=== PATIENT | female | born 1965 | race Caucasian/White ===

== ENCOUNTER 2016-06-18 10:10 | Emergency (ER) | payer MEDICAID ==
[~2016-06-18] VITALS: Ht 149.9 cm; Wt 92.1 kg
[~2016-06-18 10:10] MED LIST: ATENOLOL25 M1; CIPRO500 MG; DIABETA1.25 MG PO; LEVAQUIN500 MG PO; METFORMIN500 MG PO; PHENAZOPYRIDIN100 MG PO; PYRIDIUM100 MG; SOMA350 M1; TENORMIN25 MG PO; TYLENOL ES500 MG PO; VICODIN ES 7501 TA1; WELLBUTRIN XL300 MG
[2016-06-18 10:17] VITALS: BP 126/93
--- NOTE | 2016-06-18 10:37 | NUR ---
PT TO BED 4 AT THIS TIME
--- NOTE | 2016-06-18 10:45 | NUR ---
50/F PRESENT TO ER C/O SORE THROAT x 2 WEEKS; DENIES N/V/D; SKIN IS PINK/WARM/DRY; AAOX4 WITH EVEN AND STEADY GAIT; LUNGS CLEAR BL; HR EVEN AND REGULAR; PT DENIES ANY FEVER, CP OR SOB AT THIS TIME; PATIENT STATES PAIN OF 10/10 AT THIS TIME; VSS; PATIENT POSITIONED FOR COMFORT; HOB ELEVATED; BEDRAILS UP X2; BED DOWN. ER MD MADE AWARE OF PT STATUS.
[2016-06-18] MEDS ORDERED: ALBUTEROL SULFATE/IPRATROPIU 3 ML SOL IH ONE (11:10)
[2016-06-18] MEDS ORDERED: IBUPROFEN 800 MG TAB PO ONE (11:15)
[2016-06-18] MEDS ORDERED: IBUPROFEN 800 MG TAB ONE (11:18)
[2016-06-18 12:59] VITALS: BP 121/71
--- NOTE | 2016-06-18 12:59 | NUR ---
Patient discharged with v/s stable. Written and verbal after care instructions given and explained. Patient alert, oriented and verbalized understanding of instructions. Ambulatory with steady gait. All questions addressed prior to discharge. ID band removed. Patient advised to follow up with PMD. Rx of PULMICORT, AZITHROMYCIN given. Patient educated on indication of medication including possible reaction and side effects. Opportunity to ask questions provided and answered.
== END 2016-06-18 12:59 | disposition home or self-care (01) ==
LOC: MED 10:10
DX: J45.901 Unspecified asthma with (acute) exacerbation (principal); R03.0 Elevated blood-pressure reading, without diagnosis of hypertension; E11.9 Type 2 diabetes mellitus without complications; I10 Essential (primary) hypertension; F15.10 Other stimulant abuse, uncomplicated; F17.210 Nicotine dependence, cigarettes, uncomplicated; Z71.6 Tobacco abuse counseling
CPT/HCPCS: 82948; 99283; J7620

== ENCOUNTER 2016-08-15 12:03 | Emergency (ER) | payer MEDICAID ==
[~2016-08-15] VITALS: Ht 152.4 cm; Wt 99.8 kg
--- NOTE | 2016-08-15 12:03 | NUR ---
Patient was BIBA at this time. Patient ambulated to Triage room from [facility]
[2016-08-15 12:10] VITALS: BP 129/88
--- NOTE | 2016-08-15 14:30 | NUR ---
NO ANSWER OUT IN ER LOBBY
--- NOTE | 2016-08-15 15:25 | NUR ---
PATIENT LEFT WITHOUT BEING SEEN BY DR. GUZMAN. NO FURTHER CARE PROVIDED FOR PATIENT.
== END 2016-08-15 15:25 | disposition left against medical advice (07) ==
LOC: MED 12:03
DX: R10.9 Unspecified abdominal pain (principal); Z53.21 Procedure and treatment not carried out due to patient leaving prior to being seen by health care provider

== ENCOUNTER 2016-10-14 16:53 | Inpatient (IN) | payer MEDICAID ==
[~2016-10-14] VITALS: Ht 152.4 cm; Wt 95.3 kg
[~2016-10-14 16:53] MED LIST changes: +ACET-6134 PO; -ATENOLOL25 M1; -CIPRO500 MG; -DIABETA1.25 MG PO; -LEVAQUIN500 MG PO; +LEVO500T6 PO; -METFORMIN500 MG PO; +PHEN-136 PO; -PHENAZOPYRIDIN100 MG PO; -PYRIDIUM100 MG; -SOMA350 M1; -TENORMIN25 MG PO; -TYLENOL ES500 MG PO; -VICODIN ES 7501 TA1; -WELLBUTRIN XL300 MG
--- NOTE | 2016-10-14 16:53 | NUR ---
Patient was BIBA and taken to bed 03 via gurney per EMS.
[2016-10-14 16:59] VITALS: BP 128/90
--- NOTE | 2016-10-14 17:00 | NUR ---
51F BIBA FOR EVALUATION OF SUICIDAL IDEATION; PT AA&OX4 AT THIS TIME, PERRLA WITH CLEAR SPEECH; PT STATES HAS IDEAS OF SUICIDAL IDEATION, BUT DENIES IDEAS OF HURTING OTHERS AT THIS TIME; PT STATES " IF I HAD A BUNCH OF PILLS, I WOULD TAKE THEM TO KILL MYSELF"; PT STATES " I'VE TRIED TO KILL MYSELF BEFORE WITH PILLS. THEY HAD TO PUMP MY STOMACH"; HX: DM, HTN, STROKE; NO PHYSICAL DEFICITS NOTED FROM STROKE AT THIS TIME; PT STATES " THE STROKE JUST MADE ME KIND OF STUPID"; PT C/O PRESSURE TO LEFT GROIN AREA, NON-RADIATING, 9/10 X YESTERDAY; PT STATES " IT'S BECAUSE I HAVE OVARIAN CANCER"; PT C/O NAUSEA, WITH 2 EPISODES OF DIARRHEA TODAY; ABDOMEN SOFT, NON-TENDER, ACTIVE BOWEL SOUNDS X 4 QUADRANTS; BL LUNG SOUNDS CLEAR, RR EVEN/UNLABORED, EQUAL RISE/FALL OF CHEST NOTED AT THIS TIME; SKIN IS WARM/DRY/INTACT AT THIS TIME; STEADY GAIT; PT PLACED ON MONITOR, RESTING IN BED WITH HOB ELEVATED AND IN LOWEST POSITION; POSITIONED FOR COMFORT; ER MD MADE AWARE OF STATUS. WILL CONTINUE TO MONITOR.
--- NOTE | 2016-10-14 17:11 | NUR ---
ER MD DR. TIERNEY EVALUATING PT AT BEDSIDE.
--- NOTE | 2016-10-14 17:51 | NUR ---
[place] [employer] AT BEDSIDE EVALUATING PT FOR POSSIBLE 5150 HOLD.
--- NOTE | 2016-10-14 17:55 | NUR ---
PT PLACED ON 5150 HOLD MY [employer] [employer] FOR SUICIDAL IDEATION AT THIS TIME.
[2016-10-14 18:00] LABS: BASOPHILS # (AUTO) 0.3 K/uL (0.00-0.22); EOSINOPHILS # (AUTO) 0.2 K/uL (0-0.4); EOSINOPHILS % (AUTO) 1.3 % (0.0-4.0); LYMPHOCYTES # (AUTO) 3.5 K/uL (2.5-16.5); LYMPHOCYTES % (AUTO) 26.2 % (20.5-51.1); MEAN CORPUSCULAR HEMOGLOBIN 24 pg (27-31); MEAN CORPUSCULAR HGB CONC 32 g/dL (33-37); MEAN CORPUSCULAR VOLUME 75 fL (80-94); MONOCYTES # (AUTO) 0.6 K/uL (0.8-1.0); MONOCYTES % (AUTO) 4.6 % (1.7-9.3); NEUTROPHILS # (AUTO) 8.6 K/uL (1.8-7.7); NEUTROPHILS % (AUTO) 65.9 % (42.2-75.2); PLATELET COUNT (AUTO) 337 K/uL (140-450); RED BLOOD CELL COUNT(AUTO) 5.88 MIL/uL (4.20-5.40); RED CELL DISTRIBUTION WIDTH 16.7 % (11.6-13.7); WHITE BLOOD COUNT (AUTO) 13.2 K/uL (4.8-10.8)
[2016-10-14 18:03] LABS: APPEARANCE,URINE CLEAR (CLEAR); BILIRUBIN,URINE NEGATIVE (NEGATIVE); BLOOD, URINE NEGATIVE (NEGATIVE); COLOR,URINE YELLOW (YELLOW); LEUKOCYTE ESTERASE ,URINE NEGATIVE (NEGATIVE); NITRITE, URINE NEGATIVE (NEGATIVE); PH,URINE 5.5 (5.0-9.0); PROTEIN,URINE TRACE (NEGATIVE); UGLUCOSE 3+ (NEGATIVE); UROBILINOGEN,URINE 0.2 EU/dL (0.2 - 1)
[2016-10-14 18:06] LABS: BACTERIA,URINE 1+ /HPF (None Seen); MUCUS,URINE 1+ /LPF (None Seen); RBC,URINE 0-5 /HPF (0-5); SQUAMOUS EPITHELIAL CELL,UR 20-40 /LPF (0-3 (FEW)); WBC,URINE 0-5 /HPF (0-5)
[2016-10-14 18:09] LABS: ANION GAP 11.9 (8-16); CALCIUM 9.2 mg/dL (8.5-10.1); CARBON DIOXIDE 28.4 mmol/L (21-32); CHLORIDE 98 mmol/L (98-107); CREATININE 0.7 mg/dL (0.6-1.3); GFR ARICAN-AMERICAN 114 mL/min (>90); GFR NON ARICAN-AMERICAN 95 mL/min (>90); GLUCOSE 262 mg/dL (74-106); POTASSIUM 4.3 mmol/L (3.5-5.1); SODIUM SERUM 134 mmol/L (136-145); UREA NITROGEN, BLOOD 15 mg/dL (7-18)
[2016-10-14 18:09] LABS: AMPHETAMINE, URINE POS. ng/ml (NEG <=1000); BARBITURATE, URINE NEG. ng/ml (NEG <=200); BENZODIAZEPINE, URINE NEG. ng/mL (NEG <=200); CANNABINOID, URINE NEG. ng/mL (NEG <=50); COCAINE, URINE NEG. ng/mL (NEG <=300); OPIATE, URINE NEG. ng/mL (NEG <=2000); PHENCYCLIDINE SCREEN,URINE NEG. ng/mL (NEG <=25)
[2016-10-14] MEDS ORDERED: NACL 0.9% 1,000 ML IV ONE (18:10)
[2016-10-14] MEDS ORDERED: KETOROLAC 30 MG/ML VIAL IVP ONE (18:10)
[2016-10-14] MEDS ORDERED: INSULIN HUMAN REGULAR 100 UNITS/ML 10 ML VIAL IVP ONE (18:10)
[2016-10-14 18:15] LABS: ACETAMINOPHEN < 0.5 ug/ml (10-30); ALANINE AMINOTRANSFERASE 17 U/L (14-59); ALBUMIN 3.1 g/dL (3.4-5.0); ALCOHOL, BLOOD < 3 mg/dL (<3); ALKALINE PHOSPHATASE 129 U/L (46-116); ASPARTATE AMINOTRANSFERASE 10 U/L (15-37); SALICYLATE < 2.8 mg/dL (2.8-20.0); TOTAL BILIRUBIN 0.3 mg/dL (0.0-1.0); TOTAL PROTEIN, SERUM 7.3 g/dL (6.4-8.2)
--- NOTE | 2016-10-14 18:47 | NUR ---
PT APPEARS TO BE RESTING COMFORTABLY IN BED; VSS; RR EVEN/UNLABORED; POSITIONED FOR COMFORT; SUICIDAL IDEATION PRECAUTIONS IN PLACE; WILL CONTINUE TO MONITOR.
--- NOTE | 2016-10-14 19:13 | NUR ---
RECEIVED REPORT FROM AM NURSE, PT IS ASLEEP IN BED, NO S/S OF DISTRESS, WILL CONTINUE TO MONITOR.
--- NOTE | 2016-10-14 19:13 | NUR ---
Pt report given to PRATIBHA BAILEY. Transfer of care at this time. PT APPEARS TO BE SLEEPING COMFORTABLY IN BED; VSS; RR EVEN/UNLABORED AT THIS TIME; POSITIONED FOR COMFORT.
--- NOTE | 2016-10-14 22:07 | NUR ---
REPORT GIVEN TO PRATIBHA AMIN, PATIENT WILL TRANSFER TO ROOM 110B.
[2016-10-14] MEDS ORDERED: ACETAMINOPHEN 325 MG TAB PO PRN (22:25)
[2016-10-14] MEDS ORDERED: ACETAMINOPHEN EXTRA STRENGTH 500 MG TAB PO SCH (22:25)
[2016-10-14] MEDS ORDERED: ONDANSETRON 4 MG/2 ML VIAL IVP PRN (22:25)
--- NOTE | 2016-10-14 22:25 | NUR ---
Patient will be admitted to care of DR PACHECO. Admited to TELEMETRY. Will go to room 110 B. Belongings list completed. Report to RHINA MCKINNON.
--- NOTE | 2016-10-14 22:30 | NUR ---
PATIENT ADMITTED TO THE UNIT FROM ED VIA GURNEY, PATIENT ABLE TO AMBULATE FROM [place] TO BED, STEADY GAIT, PATIENT IS AAOX4 ON ROOM AIR NO SOB OR SIGN OF DISTRESS AT THIS TIME, IV TO RIGHT HAND PATENT AND INTACT, PATIENT DENIES PAIN AT THIS TIME, SKIN INTACT, ATTEMPTED TO DO ADMISSION ASSESSMENT, PT ASKED WHY SHE WAS HERE EXPLAINED TO PATIENT SHE WAS HERE FOR MONITORING AND PROCEEDED TO ASK IF SHE WANTED TO HURT HERSELF, PT SAID "YEAH I WANT TO KILL MYSELF AND ," ASKED PATIENT WHY AND PT STATED, "BECAUSE I AM NOT HAPPY WITH MY LIFE AND THE WAY IT IS." PT STATED SHE HAS IN THE PAST TRIED TO KILL HERSELF BY TAKING PILLS, TYLENOL. TRIED TO FURTHER ASSESS OTHER HISTORY AND PATIENT GOT AGITATED AND STATED, "I DONT WANT TO TALK ANYMORE, ITS ALL IN MY CHART." PATIENT 1:1 SITTER, PT NOW SLEEPING, WILL CONTINUE TO MONITOR, VITAL SIGNS STABLE.
[2016-10-14 23:09] VITALS: BP 120/75
--- NOTE | 2016-10-15 01:07 | NUR ---
PT SLEEPING NO SIGN OF DISTRESS, 1:1 SITTER, CALL LIGHT WITHIN REACH, WILL CONTINUE TO MONITOR
--- NOTE | 2016-10-15 03:20 | NUR ---
PT SLEEPING NO SIGN OF DISTRESS, 1:1 SITTER, WILL CONTINUE TO MONITOR.
[2016-10-15] MEDS: LORazepam 2 MG/ML VIAL IVP PRN ×3 (05:20→17:49)
--- NOTE | 2016-10-15 05:27 | NUR ---
[employer] [employer] [place] BOATMAN CALLED SAYING PT WAS AGITATED, ASKED PT WHY SHE WAS UPSET, PT STATED "BECAUSE OF EVERYTHING AND EVERYONE IM JUST IRRITATED!" PT ALSO STATED SHE WAS FEELING ANXIOUS, ADMINISTERED ATIVAN PER MD ORDER. PT RESTING IN BED, WILL CONTINUE TO MONITOR. 1:1 SITTER
--- NOTE | 2016-10-15 07:39 | NUR ---
ENDORSED PATIENT TO DAY RN AT BEDSIDE, PATIENT IN STABLE CONDITION, 1:1 SITTER
--- NOTE | 2016-10-15 07:40 | NUR ---
RECEIVED PT FROM THE FOUR H CLUB AGENT NURSE AT BEDSIDE FOR CONTINUITY OF CARE. PT IS AWAKE AND ORIENTED. INTRODUCED MYSELF AND UPDATED THE BOARD. PT IS NON-COMPLIANT. REFUSED V/S THIS MORNING. SHE ATE HER BREAKFAST AND WENT TO BED. SHE STATES, SHE'S BEEN BOTHERED ALL MORNING. JUST WANT TO BE LEFT ALONE. SITTER IN THE ROOM. NOTED IV ON R HAND 22G SL.
--- NOTE | 2016-10-15 08:49 | NUR ---
PT REFUSED MORNING MEDS. WANTS TO BE LEFT ALONE AND JUST SLEEP.
--- NOTE | 2016-10-15 08:58 | NUR ---
PATIENT HAS BEEN SCREENED AND CATEGORIZED HIGH NUTRITION RISK. PATIENT WILL BE SEEN WITHIN 1-2 DAYS OF ADMISSION. 10/15/16-10/16/[address]
[2016-10-15] MEDS: LEVOFLOXACIN 500 MG TAB PO SCH (09:16)
[2016-10-15] MEDS: PHENAZOPYRIDINE 100 MG TAB PO SCH ×2 (09:17→21:50)
--- NOTE | 2016-10-15 09:20 | NUR ---
PT AWAKE. ASKED TO DO V/S AND TAKE MORNING MEDS. PT SAID YES. V/S WITHIN NORMAL LIMITS AND PT TOLERATED MEDS WELL. SITTER IN ROOM. WILL CONTINUE TO MONITOR PT.
[2016-10-15 09:30] VITALS: BP 123/76
--- NOTE | 2016-10-15 10:00 | NUR ---
PT FEELING ANXIOUS. WANTED ATIVAN. ADMINISTERED MED. PT TOLERATED WELL. UPSET ABOUT GOWN,FEELING RESTRICTED. TOOK IT OFF AND WENT TO THE BATHROOM.
--- NOTE | 2016-10-15 11:30 | NUR ---
PT SLEEPING. NO SIGNS OF DISTRESS. SITTER IN ROOM. WILL CONTINUE TO MONITOR PT.
--- NOTE | 2016-10-15 12:13 | NUR ---
SS NOTE: I ATTEMPTED TO SPEAK WITH PT BEDSIDE TO PROVIDE HER WITH HOMELESS RESOURCES, SUBSTANCE ABUSE RESOURCES AND MENTAL HEALTH RESOURCES BUT PT WAS SLEEPING AND SNORING.
--- NOTE | 2016-10-15 12:34 | NUR ---
PT SLEEPING. NO SIGNS OF DISTRESS. SITTER IN THE ROOM. WILL CONTINUE TO MONITOR PT.
--- NOTE | 2016-10-15 13:02 | NUR ---
SS NOTE: I ATTEMPTED TO SPEAK WITH PT AGAIN BEDSIDE BUT PT WAS SLEEPING AND SNORING.
--- NOTE | 2016-10-15 13:56 | NUR ---
10/15/16 RD INITIAL ASSESSMENT COMPLETED PLEASE REFER TO NUTRITION ASSESSMENT UNDER CARE ACTIVITY FOR ESTIMATED NUTRITIONAL NEEDS. 1. CONTINUE REGULAR DIET, IF PT AGREEABLE SWITCH TO 60GM CONSISTENT CARBOHYDRATE DIET JAIDA GRANGER RD
--- NOTE | 2016-10-15 15:21 | NUR ---
PT SLEEPING. NO SIGNS OF DISTRESS. WILL CONTINUE TO MONITOR PT.
[2016-10-15 16:00] VITALS: BP 150/101
--- NOTE | 2016-10-15 16:30 | NUR ---
PT HUNGRY. PT REQUESTED SANDWICH AND SODA. REQUESTED TO FNS.
--- NOTE | 2016-10-15 17:30 | NUR ---
DR. RICHEY, PSCHIATRIST CAME AND EVALUATED PT.
--- NOTE | 2016-10-15 18:00 | NUR ---
PT RESTING COMFORTABLY AFTER GETTING HER ATIVAN. NO SIGNS OF DISTRESS. SITTER IN THE ROOM. WILL CONTINUE TO MONITOR PT.
--- NOTE | 2016-10-15 19:30 | NUR ---
ENDORSED PT TO THE MATTE CUTTER NURSE AT BEDSIDE FOR CONTINUITY OF CARE. PT IS SLEEPING SOUNDLY. NO SIGNS OF DISTRESS. SITTER IN ROOM. PT IS STABLE.
--- NOTE | 2016-10-15 19:31 | NUR ---
RECEIVED REPORT,ASSUMED CARE. PT AOX4. DENIES PAIN, NO S/S OF RESPIRATORY DISTRESS AT THIS TIME. CONTINUE TO MONITOR FOR SI, DENIES AT THIS TIME. MOOD AND AFFECT REMAINS DEPRESSED. LIMITED INTERACTION AND RESPONSE TO QUESTIONS. CONTINUE ON 1:1 MONITORING FOR SAFETY. SL TO RIGHT HAND GAUGE 22, INTACT AND PATENT. NO S/S OF INFILTRATION NOTED AT THIS TIME. DISCUSSED PLAN OF CARE. PT VERBALIZED UNDERSTANDING BUT REQUIRES REINFORCEMENT. PT DISPLAYS LOW ENERGY WITH NO MOTIVATION FOR SELF CARE. ALL NEEDS ANTICIPATED. CALL LIGHT WITHIN EASY REACH
[2016-10-15] MEDS ORDERED: DEXTROSE 50% 50 ML SYR IVP PRN (19:40)
[2016-10-15] MEDS: INSULIN LISPRO SLIDING SCALE 100 UNITS/ML VIAL SUBQ PRN (21:50)
[2016-10-15] MEDS: BLOOD GLUCOSE MONITORING 1 DEV DEV FS SCH (21:57)
--- NOTE | 2016-10-15 21:57 | NUR ---
PT'S BS 379MG/DL, ADMINISTERED 10 UNITS OF HUMALOG PER SLIDING SCALE. PYRIDIUM GIVEN ORDERED. NO ADVERSE REACTION. WILL CONTINUE TO MONITOR.
--- NOTE | 2016-10-16 00:12 | NUR ---
PT SLEEPING, EASY TO AROUSE. EXPLAINED TO PT PRIOR PERFORMING THE TASK. PT SUDDENLY TOOK THE BP CUFF OFF HER ARM AND THREW IT AT STAFF. " IT HURTS! IT HURTS! I DON'T WANT THAT!" EXPLAINED RISKS/BENEFITS. PT GOT UPSET AND RAISING HER VOICE AT STAFF. WILL CONTINUE TO MONITOR.
--- NOTE | 2016-10-16 02:15 | NUR ---
ROUTINE ROUNDS, PT SOUND ASLEEP. SITTER AT BEDSIDE FOR CLOSE MONITORING AND SAFETY. NO EVIDENCE OF SELF HARM AT THIS TIME. WILL CONTINUE TO MONITOR.
--- NOTE | 2016-10-16 04:16 | NUR ---
PT SLEEPING AT THIS TIME. NO S/S OF RESPIRATORY DISTRESS. NO FACIAL GRIMACING OR MOANING INDICATING PAIN AT THIS TIME. 1:1 MONITORING FOR SAFETY. WILL CONTINUE TO MONITOR
--- NOTE | 2016-10-16 05:40 | NUR ---
PT REFUSED BLOOD DRAW DESPITE EXPLANATIONS OF RISKS/BENEFITS. PT STARTED YELLING AND SCREAMING AT STAFF. UNCOOPERATIVE AND NON RECEPTIVE WITH EDUCATION.
[2016-10-16] MEDS: INSULIN LISPRO SLIDING SCALE 100 UNITS/ML VIAL SUBQ PRN ×3 (06:41→17:27)
[2016-10-16] MEDS: BLOOD GLUCOSE MONITORING 1 DEV DEV FS SCH ×4 (06:43→21:00)
--- NOTE | 2016-10-16 07:28 | NUR ---
PT AAOX4, VERBALLY RESPONSIVE. DENIES PAIN. NO S/S OF RESPIRATORY DISTRESS AT THIS TIME. PT IN STABLE CONDITION. NO REPORTS OF SI/HI/VH/AH. ENDORSED TO NEXT SHIFT FOR CONTINUITY OF CARE.
--- NOTE | 2016-10-16 07:29 | NUR ---
PT SLEEPING. NO SIGNS OF DISTRESS. NOTED R HAND 22G SL. NO FLUIDS AT THIS TIME. SITTER IN THE ROOM. PT SKIN IS INTACT. WILL LET HER SLEEP. WILL CHECK ON HER LATER.
--- NOTE | 2016-10-16 07:50 | NUR ---
PT V/S WITHIN NORMAL. PT IS AWAKE. BREAKFAST IS HERE. UPDATED HER BOARD. NOTIFIED HER THAT I WILL BE BRING HER MORNING MEDS.
[2016-10-16 08:00] VITALS: BP 104/77
[2016-10-16] MEDS: PHENAZOPYRIDINE 100 MG TAB PO SCH ×2 (08:40→21:00)
[2016-10-16] MEDS: LEVOFLOXACIN 500 MG TAB PO SCH (08:40)
[2016-10-16] MEDS: LORazepam 2 MG/ML VIAL IVP PRN ×3 (08:41→20:42)
--- NOTE | 2016-10-16 08:50 | NUR ---
VAULT MANAGER AND INSTRUCTOR ADMINISTERED MORNING MEDS. PT TOLERATED WELL.
--- NOTE | 2016-10-16 11:06 | NUR ---
DR. VARGAS, ID IS HERE TO F/U WITH PT. PT IS AWAKE. FOLLOWING SIMPLE COMMANDS AND ANSWERING QUESTIONS. DR REQUESTED URINE SAMPLE FOR CULTURE AND SENSITIVITY. WILL TRY AND GET A SAMPLE.
--- NOTE | 2016-10-16 13:00 | NUR ---
PT SLEEPING. NO SIGNS OF DISTRESS. SITTER IN THE ROOM. WILL CONTINUE TO MONITOR PT.
--- NOTE | 2016-10-16 15:30 | NUR ---
MOVED PT FROM 110B TO 109B. GATHERED ALL PERSONAL BELONGINGS AND PT AMBULATED TO NEXT DOOR. SITTER IN THE ROOM. PT RESTING COMFORTABLY. NO SIGNS OF DISTRESS. WILL CONTINUE TO MONITOR PT.
[2016-10-16 15:54] VITALS: BP 126/82
--- NOTE | 2016-10-16 17:34 | NUR ---
PT SLEEPING SOUNDLY. NO SIGNS OF DISTRESS. SITTER IN THE ROOM. WILL CONTINUE TO MONITOR PT.
--- NOTE | 2016-10-16 18:57 | NUR ---
PT ATE DINNER. SLEEPING AGAIN. NO COMPLAINTS. SITTER IN ROOM. WILL CONTINUE TO MONITOR PT.
--- NOTE | 2016-10-16 19:15 | NUR ---
ENDORSED PT TO THE TRADER FIXED INCOME NURSE AT BEDSIDE FOR CONTINUITY OF CARE. PT IS SLEEPING. NO SIGNS OF DISTRESS. WILL CONTINUE TO MONITOR PT.
--- NOTE | 2016-10-16 19:17 | NUR ---
PATIENT IS CURRENTLY RESTING IN BED AWAKE ALERT ORIENTED WITH SITTER 1:1 JOSE RAMON AT BEDSIDE PATIENT.PATIENT IS CURRENTLY CALM AND COOPERATIVE.
--- NOTE | 2016-10-16 20:42 | NUR ---
PATIENT RECEIVED ATIVAN SHOWING AGGRESSIVE BEHAVIOUR ,SCREAMING AND HOLLERING PATIENT IS NOT COMPLETELY ORIENTED IS CONFUSED AND SEEMS DISORIENTED DOESN'T KNOW IF SHE IS INSIDE OR OUTSIDE.PATIENT IS ACCUSING THE STAFF OFF TAKING HER PERSONAL THINGS.SECURITY ATTEMPTED TO CALM HER AND KEEP HER IN HER ROOM BUT SHE HAS NO RESPECT FOR AUTHORITY AND VOCATIONAL EVALUATOR JEANINE ALSO ATTEMPTED TO DE ESCALATE THE SITUATION BUT PATIENT IS NON COMPLIANT AND WON'T FOLLOW DIRECTIONS. THEN PATIENT FINALLY SAT DOWN AND ASKED IF SHE COULD GET HER MEDICATION FOR ANXIETY AND RN ESTAPON ADMINISTERED.WHILE TRYING TO ADMINISTER PATIENT ATTEMPTED TO BITE HIM. PATIENT WILL CONTINUE TO BE MONITORED WILL REASSESS HER AFTER ATIVAN.
--- NOTE | 2016-10-16 21:30 | NUR ---
Patient's Plan of Care was discussed and reviewed with GLUE MIXER: RUSSELL HERRMANN
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
--- NOTE | 2016-10-16 22:30 | NUR ---
POLICE CAME AND SAW THE PATIENT WOODWORK SALVAGE INSPECTOR AND MYSELF EXPLAINED THAT PATIENT IS VERY AGGRESSIVE,THREATENING, AND IS THROWING THINGS TO THE STAFF AND ATTEMPTED TO BITE RN ESTAPON WHEN GIVING THE MEDICATION.POLICE ASKED TO SPEAK TO MCKENNA CHARGE NURSE AND SHE ALSO GAVE THEM INFORMATION AND PD WAS INFORMED THAT PATIENT IS 5150 AND THEN SAID THEY REALLY CAN'T DO ANYTHING BUT SAID TO CALL AGAIN IF PATIENT STARTS GETTING AGGRESSIVE AND LEFT. PATIENT CURRENTLY IN THE ROOM Raymond MARTINEZ HAS BEEN CALLED AND INFORMED OF CURRENT SITUATION WITH THE PATIENT AND GAVE ORDERS FOR HALDOL 10 IM EVERY SIX HOURS PRN WILL CARRY OUT ORDERS.
[2016-10-16] MEDS ORDERED: HALOPERIDOL IM 5 MG/ML VIAL ONE (22:41)
--- NOTE | 2016-10-17 00:10 | NUR ---
PATIENT SLEEPING IN BED DOESN'T WANT TO BE BORED PATIENT REFUSED VITAL SIGNS TONIGHT COVERED HER HEAD WITH A BLANKET.
--- NOTE | 2016-10-17 02:24 | NUR ---
PATIENT SLEEPING GOT UP THE BATHROOM AND WENT BACK TO BED,PATIENT IS CALM AT THIS TIME CONTINUES TO BE MONITORED.CALL LIGHT WITHIN REACH WILL CONTINUE TO MONITOR.
--- NOTE | 2016-10-17 04:19 | NUR ---
PATIENT IS CURRENTLY RESTING IN BED IN NO DISTRESS WILL CONTINUE TO MONITOR. SITTER 1:1 BRIANNA AT BEDSIDE WILL CONTINUE TO MONITOR.
[2016-10-17 06:25] LABS: ANION GAP 12.7 (8-16); CALCIUM 8.6 mg/dL (8.5-10.1); CARBON DIOXIDE 26.7 mmol/L (21-32); CREATININE 0.8 mg/dL (0.6-1.3); POTASSIUM 4.4 mmol/L (3.5-5.1)
[2016-10-17 06:28] LABS: BASOPHILS # (AUTO) 0.2 K/uL (0.00-0.22); BASOPHILS % (AUTO) 1.8 % (0.0-2.0); EOSINOPHILS # (AUTO) 0.2 K/uL (0-0.4); EOSINOPHILS % (AUTO) 1.7 % (0.0-4.0); HEMATOCRIT 42.3 % (36-48); HEMOGLOBIN 13.5 g/dL (12.0-16.0); LYMPHOCYTES # (AUTO) 3.4 K/uL (2.5-16.5); LYMPHOCYTES % (AUTO) 28.7 % (20.5-51.1); MEAN CORPUSCULAR HEMOGLOBIN 24 pg (27-31); MEAN CORPUSCULAR HGB CONC 32 g/dL (33-37); MEAN CORPUSCULAR VOLUME 76 fL (80-94); MONOCYTES # (AUTO) 0.6 K/uL (0.8-1.0); MONOCYTES % (AUTO) 4.9 % (1.7-9.3); NEUTROPHILS # (AUTO) 7.5 K/uL (1.8-7.7); NEUTROPHILS % (AUTO) 62.9 % (42.2-75.2); PLATELET COUNT (AUTO) 261 K/uL (140-450); RED BLOOD CELL COUNT(AUTO) 5.58 MIL/uL (4.20-5.40); RED CELL DISTRIBUTION WIDTH 16.7 % (11.6-13.7)
--- NOTE | 2016-10-17 06:32 | NUR ---
PATIENT REFUSED TO INSULIN COVERAGE I EXPLAINED TO THE PATIENT THE IMPORTANCE TO MAINTAIN HER BLOOD SUGAR LEVELS UNDER CONTROL PATIENT UNABLE TO UNDERSTANDING PATIENT STATES,"I DON'T CARE." AND REFUSED.WILL ENDORSE AND WILL LET PATIENT REST.
[2016-10-17] MEDS: BLOOD GLUCOSE MONITORING 1 DEV DEV FS SCH ×4 (06:34→21:14)
[2016-10-17 07:07] LABS: WHITE BLOOD COUNT (AUTO) 11.9 K/uL (4.8-10.8)
--- NOTE | 2016-10-17 07:11 | NUR ---
PATIENT STABLE REPORT ENDORSED TO MADISON CORONADO
--- NOTE | 2016-10-17 07:14 | NUR ---
ASSUMED CONTINUITY OF CARE. NO SIGNS AND SYMPTOMS OF ACUTE DISTRESS NOTED. INITIAL ASSESSMENT DONE. NON-COMPLIANT. KEEP COMFORTABLE ON BED. CLOSELY WATCHED BY A 1:1 SITTER REVA DE LEÓN. CALL LIGHT WITHIN REACH.
--- NOTE | 2016-10-17 07:18 | NUR ---
Patient's Plan of Care was discussed and reviewed with BEAM SAW OPERATOR: MELLISSA CORONADO
--- NOTE | 2016-10-17 08:35 | NUR ---
DARIA HOFFMANN CAME, INFORMED THAT PT. REFUSED INSULIN COVERAGE EARLIER FROM RETORT FURNACE OPERATOR NURSE.
[2016-10-17 09:00] VITALS: BP 133/94
[2016-10-17] MEDS: PHENAZOPYRIDINE 100 MG TAB PO SCH ×2 (09:28→21:00)
[2016-10-17] MEDS: LEVOFLOXACIN 500 MG TAB PO SCH (09:29)
--- NOTE | 2016-10-17 10:45 | NUR ---
PT. RESTING ON BED COMFORTABLY. NO DISCOMFORT NOTED. CONTINUE TO WATCH BY A SITTER 1:1.
[2016-10-17] MEDS: INSULIN LISPRO SLIDING SCALE 100 UNITS/ML VIAL SUBQ PRN (12:10)
--- NOTE | 2016-10-17 14:00 | NUR ---
IV ON RIGHT HAND INFILTRATED. INSERTED NEW IV ON LEFT FOREARM WITH GAUGE #24. TOLERATED WELL.
[2016-10-17] MEDS: LORazepam 2 MG/ML VIAL IVP PRN ×2 (14:36→20:22)
--- NOTE | 2016-10-17 17:06 | NUR ---
CALM AND QUIET AT THIS TIME. NO AGGRESSIVE BEHAVIOR OBSERVED. KEEP FREE FROM INJURY.
--- NOTE | 2016-10-17 19:15 | NUR ---
BEDSIDE REPORT GIVEN TO RUSSELL LI. IN STABLE CONDITION.
--- NOTE | 2016-10-17 19:20 | NUR ---
PATIENT IS CURRENTLY RESTING IN BED SLEEPING. SITMONTANA AT BEDSIDE WITH THE PATIENT. PATIENT NEEDS MET WILL CONTINUE TO MONITOR.
--- NOTE | 2016-10-17 21:15 | NUR ---
PATIENT REFUSED HER PYRIDIUM PILL.EDUCATION GIVEN ON THE IMPORTANCE OF TAKING IT PATIENT REFUSED.
--- NOTE | 2016-10-17 22:00 | NUR ---
Patient's Plan of Care was discussed and reviewed with CONSULTING SERVICES MANAGER: RUSSELL HERRMANN
--- NOTE | 2016-10-18 00:26 | NUR ---
PATIENT IS SLEEPING AT THIS TIME WILL CONTINUE TO MONITOR.CALL LIGHT WITHIN REACH.
--- NOTE | 2016-10-18 03:20 | NUR ---
PATIENT IS CURRENTLY SLEEPING IN BED GETS UP TO THE BATHROOM AND GOES BACK TO BED NO AGRESSIVE BEHAVIOR NO ATTEMPTS TO HARM SELF OR OTHERS WILL CONTINUE TO MONITOR.SITTER 1:1 AT BEDSIDE AT ALL TIMES.
--- NOTE | 2016-10-18 05:11 | NUR ---
PATIENT IS CURRENTLY SLEEPING IN BED NO DISTRESS NO HARM TO SELF OR OTHER UP UNTIL NOW SHE HAS BEEN COOPERATIVE AND CALM.WILL CONTINUE TO MONITOR.
--- NOTE | 2016-10-18 06:36 | NUR ---
PATIENT RESTING IN BED REMAINS NON COMPLIANT REFUSES ACCUCHECK WANTS TO SLEEP.PATIENT CONTINUES TO BE MONITORED.
--- NOTE | 2016-10-18 07:31 | NUR ---
PATIENT IS CURRENTLY SLEEPING ENDORSED TO PRATIBHA MACKEY THAT PATIENT WAS CALM BUT COMPLETELY NON COOPERATIVE AND NON COMPLIANT WITH HER TREATMENT SHE REFUSED VITAL SIGNS AND ACCUCHECKS ON MY SHIFT BUT PATIENT CONTINUES TO BE MONITORED BY 1l:1 SITTER AND NO HARM DONE TO NURSE OF STAFF ON MY SHIFT.PRATIBHA MACKEY WILL RESUME CARE OF THE PATIENT.
[2016-10-18] MEDS: LEVOFLOXACIN 500 MG TAB PO SCH (09:51)
--- NOTE | 2016-10-18 09:56 | NUR ---
DUE MEDS GIVEN FADIA WELL, PT ON THE PHONE WITH DAUGHTER JANN, UPSET ON THE PHONE, STATING "I'M HERE BECAUSE I FU WANNA KILL MYSELF", PT STATES IT'S OK TO TELL DAUGHTER JANN ABOUT HER CARE AND CONDITION OF JANN CALLS AGAIN, PT WENT BACK SLEEP.
--- NOTE | 2016-10-18 10:37 | NUR ---
SS NOTE: PSYCH PLACEMENT INQUIRIES SENT TO: - [facility]
[2016-10-18] MEDS: BLOOD GLUCOSE MONITORING 1 DEV DEV FS SCH ×4 (11:30→22:00)
--- NOTE | 2016-10-18 12:04 | NUR ---
SS NOTE: I SPOKE WITH PT BEDSIDE. PT STATED THAT SHE HAS BEEN HOMELESS FOR TOO LONG AND WOULD NOT PROVIDE ADDITIONAL INFORMATION. I PROVIDED PT WITH HOMELESS RESOURCES, MENTAL HEALTH RESOURCES AND SUBSTANCE ABUSE RESOURCES.
[2016-10-18] MEDS: INSULIN LISPRO SLIDING SCALE 100 UNITS/ML VIAL SUBQ PRN ×3 (12:20→22:11)
[2016-10-18] MEDS: LORazepam 2 MG/ML VIAL IVP PRN ×2 (13:29→19:32)
--- NOTE | 2016-10-18 13:33 | NUR ---
PT UPSET BECAUSE HER PURSE AND CELL PHONE MISSING, PER XM1 TANK DRIVER AT BEDSIDE PT WAS GETTING AGGRESSIVE, GETTING OUT OF BED, WANTING TO GO OUT TO SMOKE, ANABEL CHAVEZ CALLED WHEN PT WAS TRYING TO RUN OUT OF ROOM DOWN THE HALLWAY. PT REASSURED THAT WE ARE SEARCHING FOR HER BELONGINGS, PT REQUESTS "ANXIETY MED" ATIVAN GIVEN PER PRN ORDER, WILL CONTINUE TO MONITOR.
--- NOTE | 2016-10-18 14:18 | NUR ---
10/18/16 RD FOLLOW-UP ASSESSMENT COMPLETED PLEASE REFER TO NUTRITION ASSESSMENT UNDER CARE ACTIVITY FOR ESTIMATED NUTRITIONAL NEEDS. 1. CONTINUE 60 G CONSISTENT CARBOHYDRATE DIET 2. RD TO FOLLOW-UP MODERATE RISK, 3-[address]
--- NOTE | 2016-10-18 14:32 | NUR ---
SS NOTE: PER FREDDIE FROM [facility], PT'S INFORMATION IS PENDING REVIEW PER HECTOR FROM [facility], NO FEMALE BEDS AVAILABLE PER COLBY FROM [facility], NO FEMALE BEDS AVAILABLE PER LEO FROM [facility], NO FEMALE BEDS AVAILABLE PER RUSSELL FROM [facility], NO FEMALE BEDS AVAILABLE
[2016-10-18 16:20] VITALS: BP 106/53
--- NOTE | 2016-10-18 17:36 | NUR ---
6U INSULIN GIVEN PER SLIDING SCALE, PT FADIA WELL, PT CALM AND COOPERATIVE AT THIS TIME, REMAINS ON 1:1 WATCH, PLAN OF CARE REVIEWED, PENDING INPT PSYCH PLACEMENT, BED LOCKED IN LOW POSITION, CALL STEWART WITHIN REACH, WILL CONTINUE TO MONITOR.
--- NOTE | 2016-10-18 19:25 | NUR ---
SLEEPING COMFORTABLY IN BED. SITTER MONITORING PATIENT.
--- NOTE | 2016-10-18 19:34 | NUR ---
PT REPROT FEELING ANXIOUS, ATIVAN GIVEN PER PRN ORDER, REPORT GIVEN TO ENRIQUE SHOT HOLE SHOOTER, CARE ENDORSED AT THIS TIME.
--- NOTE | 2016-10-18 19:35 | NUR ---
RECD. RESTING IN BED, AWAKE, A/OX4. RESPIRATION EVEN AND UNLABORED. IV SALINE LOCK AT THE LEFT FOREARM G 24. 1:1 SITTER AT THE BEDSIDE MONITORING PATIENT. WILL CONTINUE TO MONITOR BEHAVIOR AND ENSURE SAFETY THROUGHOUT THE SHIFT. DENIES PAIN 0/10.
--- NOTE | 2016-10-18 19:48 | NUR ---
Patient's Plan of Care was discussed and reviewed with PROCESS CONTROL BOARD OPERATOR: ENRIQUE Strong
[2016-10-19] VITALS: BP 119/66
--- NOTE | 2016-10-19 | NUR ---
SLEEPING COMFORTABLY IN BED. COOPERATIVE, ALLOWS VS TO BE TAKEN.
[2016-10-19] MEDS: LORazepam 2 MG/ML VIAL IVP PRN ×3 (04:45→21:01)
--- NOTE | 2016-10-19 05:30 | NUR ---
REFUSED AM LAB BLOOD DRAW REPORTED BY INSTRUMENTATION AND CONTROL TECHNICIAN.
[2016-10-19] MEDS: BLOOD GLUCOSE MONITORING 1 DEV DEV FS SCH ×4 (06:30→20:59)
[2016-10-19] MEDS: INSULIN LISPRO SLIDING SCALE 100 UNITS/ML VIAL SUBQ PRN ×4 (06:36→21:01)
--- NOTE | 2016-10-19 07:20 | NUR ---
CONDITION REMAIN STABLE. ENDORSED TO PRATIBHA ISAAC FOR CONTINUITY OF CARE.
--- NOTE | 2016-10-19 07:25 | NUR ---
RECEIVED PATIENT REPORT AT BEDSIDE FROM NIGHT NURSE. PATIENT IS AAOX4 AND SHOWS NO S/S OF DISTRESS ON ROOM AIR. PATIENT DENIES PAIN AT THIS TIME. SKIN IS INTACT. IV ON THE L FA SL. PATIENT WAS EXPLAINED POC FOR TODAY AND VERBALIZED UNDERSTANDING. PATIENT EDUCATED ON USING THE CALL LIGHT WHEN ASSISTANCE IS NEEDED. THE BED IS LOWERED WITH CALL LIGHT WITHIN REACH. WILL CONTINUE TO MONITOR.
[2016-10-19 08:00] VITALS: BP 116/73
--- NOTE | 2016-10-19 08:00 | NUR ---
PATIENT SHOWS NO S/S OF DISTRESS ON ROOM AIR. PATIENT HAS SITTER AT BEDSIDE. BED LINEN WERE CHANGED. PATIENT IS NOW SITTING AT BEDSIDE IN CHAIR EATING BREAKFAST AND TOLERATING FOOD WELL.
--- NOTE | 2016-10-19 10:00 | NUR ---
PATIENT C/O AGITATION AND ANXIETY. WILL ADMINISTER PRN ANXIETY MEDICATION.
--- NOTE | 2016-10-19 10:32 | NUR ---
ADMINISTERED PRN ANXIETY MEDICATION. PATIENT STATED IV SITE "STINGS A LITTLE BIT" HOWEVER WHEN ASKED TO CHANGE IT SHE REFUSED. PATIENT WAS EDUCATED ON IV SITE INFILTRATION AND IF PAIN CONTINUES WE NEED TO CHANGE IV SITE. PATIENT STATED SHE WOULD BE OKAY TO CHANGED IT LATER TODAY IF SHE CONTINUES TO HAVE PAIN.
--- NOTE | 2016-10-19 12:30 | NUR ---
PATIENT IS SLEEPING AND SHOWS NO S/S OF DISTRESS ON ROOM AIR. SITTER IS AT BEDSIDE. WILL CONTINUE TO MONITOR.
--- NOTE | 2016-10-19 13:00 | NUR ---
PATIENT IS SLEEPING AND SHOWS NO S/S OF DISTRESS ON ROOM AIR. PATIENT IS EASILY AROUSABLE AND SPONTANEOUSLY OPENS EYES. SITTER IS AT BEDSIDE. WILL CONTINUE TO MONITOR.
--- NOTE | 2016-10-19 13:24 | NUR ---
CLINICAL REVIEW DONE. PATIENT ON 5150 HOLD.
--- NOTE | 2016-10-19 14:31 | NUR ---
SS NOTE: PER SAVANNA FROM [facility], PT HAS BEEN DENIED BECAUSE THEY FEEL THAT THEY ARE UNABLE TO SAFELY MANAGE PT PER RUSSELL FROM [facility], NO BEDS AVAILABLE PER HECTOR FROM [facility], NO BEDS AVAILABLE PER LEO FROM [facility], NO BEDS AVAILABLE PER HALINA FROM [facility], NO BEDS AVAILABLE AT THIS TIME
--- NOTE | 2016-10-19 15:00 | NUR ---
PATIENT IS AAOX4 AND SHOWS NO S/S O DISTRESS ON ROOM AIR. PATIENT AMB TO RESTROOM WITH STEADY GAIT. SITTER IS AT BEDSIDE. WILL CONTINUE TO MONITOR.
--- NOTE | 2016-10-19 15:30 | NUR ---
PATIENT IV WAS DISCONTINUED WITH CANNULA INTACT. NEW IV INSERTED IN THE R FA 22 G SL. WILL CONTINUE TO MONITOR.
[2016-10-19 16:00] VITALS: BP 118/66
--- NOTE | 2016-10-19 16:51 | NUR ---
PATIENT STATES FEELING ANXIOUS. ADMINISTERED ATIVAN 2 MG IVP PRN FOR ANXIETY. PATIENT HAS SITTER AT BEDSIDE. PATIENT SHOWS NO S/S OF DISTRESS ON ROOM AIR. WILL CONTINUE TO MONITOR.
--- NOTE | 2016-10-19 18:02 | NUR ---
PATIENT IS UP EATING DINNER AND TOLERATING DIET WELL.
--- NOTE | 2016-10-19 19:10 | NUR ---
PATIENT IS SLEEPING AND SHOWS NO S/S OF DISTRESS ON ROOM AIR.THE BED IS LOWERED WITH CALL LIGHT WITHIN REACH. SITTER AT BEDSIDE. PATIENT REPORT WAS GIVEN AT BEDSIDE TO NIGHT NURSE. PATIENT ENDORSED IN STABLE CONDITION.
--- NOTE | 2016-10-19 19:11 | NUR ---
RECD. RESTING ON BED, AWAKE, A/OX4. RESPIRATION EVEN AND UNLABORED. IV SALINE LOCK AT THE RIGHT FOREARM G22, PATENT AND INTACT. DENIES PAIN 0/10 BUT WANTS MEDICATION FOR ANXIETY, INFORMED IT IS NOT YET TIME FOR THE MEDICATION. PLAN OF CARE DISCUSSED. VERBALIZED UNDERSTANDING. 1:1 SITTER NEAR BEDSIDE. WILL CONTINUE TO MONITOR PATIENT BEHAVIOR AND ENSURE SAFETY OF PATIENT THROUGHOUT SHIFT.
--- NOTE | 2016-10-19 20:00 | NUR ---
Patient's Plan of Care was discussed and reviewed with NATUROPATHIC DOCTOR: ENRIQUE WALDROP
--- NOTE | 2016-10-19 21:01 | NUR ---
WITH ANXIETY, MEDICATED WITH ATIVAN ORDERED BY PRATIBHA WANG.
--- NOTE | 2016-10-19 21:15 | NUR ---
WANTS TO WALK OUTSIDE OF ROOM TO GET SOME FRESH AIR AND SMOKE. EXPLAINED THAT PATIENT ON HOLD CANNOT WALK AROUND.
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
--- NOTE | 2016-10-19 21:35 | NUR ---
PATIENT WALKING IN THE HALLWAY WITH PATIENT CARRYING HER BAG. SECURITY CAME AND ASSISTED PATIENT O GO BACK TO ROOM. WILL FOR NICOTINE PATCH.
--- NOTE | 2016-10-19 21:55 | NUR ---
DARIA HOFFMANN ORDERED NICOTINE PATCH AND TRAZODONE.
[2016-10-19] MEDS: NICOTINE TRANSD SYS 21 MG/24 HR PATCH TD SCH (22:00)
[2016-10-19] MEDS ORDERED: traZODone 50 MG TAB PO PRN (22:00)
--- NOTE | 2016-10-19 22:30 | NUR ---
SLEEPING COMFORTABLY IN BED. SITTER NEAR BEDSIDE.
[2016-10-20] VITALS: BP 117/72
--- NOTE | 2016-10-20 | NUR ---
STILL SLEEPING COMFORTABLY IN BED.
[2016-10-20] MEDS: NICOTINE TRANSD SYS 21 MG/24 HR PATCH TD SCH ×2 (01:00→08:25)
--- NOTE | 2016-10-20 06:30 | NUR ---
C/O OF SOB. WANTS BREATHING TX. INFORMED RT.
--- NOTE | 2016-10-20 06:36 | NUR ---
CALLED TO PTS ROOM PT C\O SOB BS DIMINISHED PLACED 2L N\C AP Addendum: 10/20/16 at 0713 by Nola Kamara RT [id number] 93 ON RA PRATIBHA MORTON CALLED DR TARA Strong FOR PRN HHN NO APPARENT DISTRESS
--- NOTE | 2016-10-20 07:00 | NUR ---
INFORMED DR. PACHECO, ORDERED BREATHING TREATMENT.
[2016-10-20] MEDS: BLOOD GLUCOSE MONITORING 1 DEV DEV FS SCH ×4 (07:05→21:23)
[2016-10-20] MEDS: INSULIN LISPRO SLIDING SCALE 100 UNITS/ML VIAL SUBQ PRN ×4 (07:05→21:24)
--- NOTE | 2016-10-20 07:10 | NUR ---
RECEIVED PATIENT REPORT AT BEDSIDE FROM NIGHT NURSE. PATIENT IS AAOX4 AND SHOWS NO S/S OF DISTRESS ON ROOM AIR. PATIENT DENIES PAIN AT THIS TIME. SKIN IS INTACT. IV ON THE R FA SL AND NOT PATENT. IV WAS DISCONTINUED WITH CANNULA INTACT. PATIENT NEW IV ON THE R FA INTACT AND PATENT. PATIENT WAS EXPLAINED POC FOR TODAY AND VERBALIZED UNDERSTANDING. PATIENT EDUCATED ON USING THE CALL LIGHT WHEN ASSISTANCE IS NEEDED. THE BED IS LOWERED WITH CALL LIGHT WITHIN REACH. WILL CONTINUE TO MONITOR.
[2016-10-20] MEDS ORDERED: ALBUTEROL SULFATE/IPRATROPIU 3 ML SOL IH PRN (07:20)
[2016-10-20 07:43] LABS: BASOPHILS # (AUTO) 0.2 K/uL (0.00-0.22); EOSINOPHILS # (AUTO) 0.2 K/uL (0-0.4); EOSINOPHILS % (AUTO) 1.8 % (0.0-4.0); HEMOGLOBIN 12.4 g/dL (12.0-16.0); LYMPHOCYTES # (AUTO) 2.5 K/uL (2.5-16.5); LYMPHOCYTES % (AUTO) 28.6 % (20.5-51.1); MEAN CORPUSCULAR HEMOGLOBIN 25 pg (27-31); MEAN CORPUSCULAR HGB CONC 33 g/dL (33-37); MEAN CORPUSCULAR VOLUME 76 fL (80-94); MONOCYTES # (AUTO) 0.6 K/uL (0.8-1.0); MONOCYTES % (AUTO) 7.2 % (1.7-9.3); NEUTROPHILS # (AUTO) 5.2 K/uL (1.8-7.7); NEUTROPHILS % (AUTO) 60.4 % (42.2-75.2); PLATELET COUNT (AUTO) 224 K/uL (140-450); RED BLOOD CELL COUNT(AUTO) 5.01 MIL/uL (4.20-5.40); RED CELL DISTRIBUTION WIDTH 16.7 % (11.6-13.7); WHITE BLOOD COUNT (AUTO) 8.7 K/uL (4.8-10.8)
[2016-10-20 08:00] VITALS: BP 101/58
[2016-10-20 08:14] LABS: ANION GAP 9.4 (8-16); CALCIUM 8.6 mg/dL (8.5-10.1); CARBON DIOXIDE 27.7 mmol/L (21-32); CREATININE 0.7 mg/dL (0.6-1.3); POTASSIUM 4.1 mmol/L (3.5-5.1)
[2016-10-20] MEDS: LORazepam 2 MG/ML VIAL IVP PRN ×3 (08:25→18:39)
--- NOTE | 2016-10-20 08:25 | NUR ---
ADMINISTERED SCHEDULED MEDICATIONS. PATIENT C/O AGITATION AND IS CRYING ADMINISTERED PRN ANXIETY MEDICATION ATIVAN. WILL CONTINUE TO MONITOR. SITTER IS AT BEDSIDE.
--- NOTE | 2016-10-20 10:30 | NUR ---
PATIENT IS SLEEPING AND SHOWS NO S/S OF DISTRESS ON ROOM AIR. SITTER IS AT BEDSIDE.
--- NOTE | 2016-10-20 12:30 | NUR ---
PATIENT IS SITTING UP IN BED EATING LUNCH AND SHOWS NO S/S OF DISTRESS ON ROOM AIR. PATIENT REQUESTED TO HAVE ANOTHER LUNCH [facility] WAS CALLED AND LEFT VOICEMAIL.
--- NOTE | 2016-10-20 13:50 | NUR ---
PATIENT C/O AGITATION AND ANXIETY. PATIENT WAS GIVEN ATIVAN 2 MG IVP. PATIENT SHOWS NO S/S OF DISTRESS ON ROOM AIR. WILL CONTINUE TO MONITOR.
--- NOTE | 2016-10-20 14:08 | NUR ---
Social Service Note: Per , patient can be discharged to a sober living or a room and board, but not be discharged back to streets. I met with patient at bedside. Per patient, she has been homeless for 1 year. She reported she has been staying at a park. She stated prior to that year she was living at home with her son and daughter. She did not provide additional information about previously living arrangement. She stated she is currently receiving about $221 monthly from [facility]. She reported she is also receiving food stamps. She told me her SSI application has been denied 4 times. She stated she is in agreement with sober living. However, when I informed her of [facility] , [address] [place] [id number], she stated she did not want to go to a sober living that was affiliated with any type of buddhist or had rules, such as not using cell phone or writing to individuals who are currently incarcerated. She reported she wanted to return back to the streets and get high. Patient became agitated and refused to talk, case specialist Susan aware of above information.
--- NOTE | 2016-10-20 15:00 | NUR ---
PATIENT MOTHER LEÓN CALLED TO SPEAK WITH DAUGHTER HOWEVER PATIENT IS SLEEPING. WHEN PATIENT WAKES UP SHE WILL BE NOTIFIED OF MOTHER CALLING HER. SITTER IS AT BEDSIDE.
--- NOTE | 2016-10-20 15:01 | NUR ---
SS NOTE: I SPOKE WITH PT'S MOTHER, LEÓN TO SEE IF PT HAS AN OPTION TO COME LIVE WITH HER. SHE STATED THAT SHE IS CURRENTLY RAISING PT'S TWO GRANDCHILDREN (AGES 10 AND 12) AND DOES NOT FEEL THAT IT IS SAFE FOR THEM TO HAVE PT IN HER HOME. SHE ALSO STATED THAT PT HAS LIVED WITH HER BEFORE AND IT HAS NOT WORKED OUT. SHE REPORTED THAT PT'S SON AND OLDEST DAUGHTER ARE IN LONG TERM AND HER YOUNGEST DAUGHTER IS ON DRUGS. SHE ALSO REPORTED THAT PT WAS PREVIOUSLY AT A SOBER LIVING IN [place] BUT DOES NOT KNOW WHAT EXACTLY HAPPENED. SHE INFORMED ME THAT SHE WILL CALL PT.
--- NOTE | 2016-10-20 16:30 | NUR ---
PATIENT IS SLEEPING AND SHOWS NO S/S OF DISTRESS ON ROOM AIR. SITTER IS AT BED SIDE.
[2016-10-20 18:00] VITALS: BP 117/77
--- NOTE | 2016-10-20 18:39 | NUR ---
PATIENT IS YELLING AND STATING SHE IS AGITATED. PER SITTER PATIENT THREW A REMOTE TO THE FLOOR. PATIENT IS YELLING FOR AGITATION MEDICATION. ADMINISTERED PRN ATIVAN 2 MG IVP. PATIENT STATES " I WANT YOU TO CALL THE DOCTOR AND INCREASE MY DOSE. I AM HAVING TOO MUCH STRESS WITH FAMILY AND BEING HERE." PATIENT IS AWARE OF PRN SEVER ANXIETY MEDICATION OF HALDOL 10 MG IVP. PATIENT IS ENCOURAGED TO RELAX AND SEE HOW SHE FEELS AFTER BEING GIVEN ATIVAN 2 MG IVP. PATIENT AGREES. WILL CONTINUE TO MONITOR. SITTER IS AT BEDSIDE. Addendum: 10/20/16 at 2118 by Norah Garcia RN HALDOL 10 MG IM NOT HALDOL 10 MG IVP.
--- NOTE | 2016-10-20 19:30 | NUR ---
PATIENT IS SLEEPING AND SHOWS NO S/S OF DISTRESS ON ROOM AIR. PATIENT REPORT WAS GIVEN AT BEDSIDE TO NIGHT NURSE. ENRIQUE RN IS AWARE OF PATIENT REQUESTING INCREASED DOSE OF ANXIETY MEDICATION AND AWARE OF HALDOL 10 MG IM FOR SEVERE ANXIETY. PATIENT ENDORSED IN STABLE CONDITION.
--- NOTE | 2016-10-20 19:31 | NUR ---
RECD. RESTING IN BED, AWAKE, A/OX4. RESPIRATION EVEN AND UNLABORED. IV SALINE LOCK AT THE RIGHT FOREARM G22, PATENT AND INTACT. DEMANDING TO HAVE MEDICATION FOR ANXIETY, EXPLAINED THAT ATIVAN IS NOT YET DUE, WANTS HALDOL, WILL GIVE ORDERED. PLAN OF CARE FOR THE SHIFT DISCUSSED. VERBALIZED UNDERSTANDING. DENIES PAIN 0. 1:1 SITTER NEAR BEDSIDE MONITORING PATIENT BEHAVIOR.
--- NOTE | 2016-10-20 20:00 | NUR ---
WENT TO ROOM TO GIVE HALDOL, PATIENT IS IN DEEP SLEEP, SNORING. NO DISTRESS NOTED.
[2016-10-20] MEDS: HALOPERIDOL IM 5 MG/ML VIAL IM PRN (21:15)
--- NOTE | 2016-10-20 21:15 | NUR ---
AWAKE, WITH SEVERE ANXIETY, MEDICATED WITH HALDOL 10 IM ORDERED. REQUESTED SNACK FOR CEREALS AND MILK. Addendum: 10/20/16 at 2146 by Sue Lares LVN CORRECTION: MEDICATED WITH HALDOL 10 MG. IM ORDERED.
--- NOTE | 2016-10-20 21:30 | NUR ---
Patient's Plan of Care was discussed and reviewed with SPORTS EQUIPMENT RACKER: ENRIQUE WALDROP
--- NOTE | 2016-10-20 21:45 | NUR ---
SITTING IN BED, NO ANXIETY/AGITATION NOTED.
--- NOTE | 2016-10-20 23:00 | NUR ---
SLEEPING COMFORTABLY IN BED.
[2016-10-21] VITALS: BP 114/73
[2016-10-21] MEDS: HYDROcodone/APAP 5/325 MG 1 TAB TAB PO PRN ×2 (05:34→16:43)
[2016-10-21] MEDS: BLOOD GLUCOSE MONITORING 1 DEV DEV FS SCH ×4 (06:56→21:34)
[2016-10-21] MEDS: INSULIN LISPRO SLIDING SCALE 100 UNITS/ML VIAL SUBQ PRN ×4 (06:57→21:39)
--- NOTE | 2016-10-21 07:05 | NUR ---
ABLE TO SLEPT WELL. CONDITION REMAIN STABLE. SAFETY MAINTAINED DURING SHIFT.WILL ENDORSED TO AM NURSE FOR CONTINUITY OF CARE.
[2016-10-21] MEDS ORDERED: FUROSEMIDE 40 MG/4 ML VIAL IVP SCH (07:19)
[2016-10-21] MEDS ORDERED: traZODone 50 MG TAB PO PRN (07:19)
--- NOTE | 2016-10-21 07:30 | NUR ---
RECEIVED PT IN BED. ASLEEP. AROUSABLE TO VOICE. ALERT ORIENTEDX4. NO SOB NOTED. DENIES ANY PAIN OR DISCOMFORT AT THIS TIME. POSITIVE BOWEL SOUNDS NOTED ON FOUR QUADRATS. DENIES ANY PROBLEM WITH BOWEL OR BLADDER ELIMINATION AT THIS TIME. SAFETY PRECAUTION IN PLACE. CALL LIGHT WITHIN REACH. DENIES ANY SUICIDAL IDEATION AT THIS TIME. PT WENT BACK TO SLEEP.
[2016-10-21 08:00] VITALS: BP 139/76
[2016-10-21] MEDS: NICOTINE TRANSD SYS 21 MG/24 HR PATCH TD SCH (08:39)
[2016-10-21 09:58] LABS: ANION GAP 10.4 (8-16); CALCIUM 8.3 mg/dL (8.5-10.1); CARBON DIOXIDE 28.7 mmol/L (21-32); CREATININE 0.7 mg/dL (0.6-1.3); POTASSIUM 4.1 mmol/L (3.5-5.1)
--- NOTE | 2016-10-21 11:51 | NUR ---
SS NOTE: I made a referral for pt with the [facility] ([phone]). I spoke with Surekha and sent over the requested information to [phone]. She stated that they will review pt's information and see if pt is appropriate for their program.
[2016-10-21] MEDS: LORazepam 2 MG/ML VIAL IVP PRN ×2 (13:54→22:12)
--- NOTE | 2016-10-21 14:00 | NUR ---
SS NOTE: PER MAYELA TUCKER FROM THE [facility], THEY ARE UNABLE TO ACCEPT PT FOR THEIR PROGRAM.
[2016-10-21 16:00] VITALS: BP 110/71
--- NOTE | 2016-10-21 16:13 | NUR ---
SS NOTE: PER MEGA FROM [facility], PT WOULD HAVE TO DO A PHONE ASSESSMENT WITH THEM AND THEN BE PLACED ON A 2-6 WEEK WAIT LIST IF PT IS APPROVED AND PT WILL HAVE TO CALL DAILY FOR A BED CHECK PER JARED FROM [facility], PT WOULD HAVE TO DO A PHONE ASSESSMENT WITH THEM AND THEN BE PLACED ON A 6-8 WEEK WAIT LIST IF PT IS APPROVED AND PT WILL HAVE TO CALL DAILY FOR A BED CHECK PER FANNY FROM [facility], THEY ARE CURRENTLY FULL. SHE ALSO STATED THAT PT WOULD HAVE TO DO A PHONE ASSESSMENT WITH THEM AND THEN BE PLACED ON A 6-8 WEEK WAIT LIST IF PT IS APPROVED AND PT WILL HAVE TO CALL DAILY FOR A BED CHECK PER EDI FROM [facility], PT WOULD HAVE TO DO A PHONE ASSESSMENT WITH THEM AND THEN BE PLACED ON A 4-6 WEEK WAIT LIST IF PT IS APPROVED AND PT WILL HAVE TO CALL DAILY FOR A BED CHECK
--- NOTE | 2016-10-21 16:54 | NUR ---
PT COMPLAINED OF HAVING A HEADACHE 08/28. DEMONSTRATED RELAXATION TECHNIQUES TO PT. REPOSITIONING DONE PER COMFORT. PRN NORCO GIVEN PRN FOR PAIN, SINCE AFOREMENTIONED INTERVENTIONS NOT EFFECTIVE. WILL MONITOR PT PAIN.
--- NOTE | 2016-10-21 18:20 | NUR ---
DR. BALTAZAR CAME TO SEE PT AND ASSESSED PT WITH NEW ORDERS MADE AND CARRIED OUT. ACCORDING TO DR. BALTAZAR PT DOES MEET 51:50 BUT WITHOUT SITTER. AND ONCE MEDICALLY CLEARED, TO DC TO BOARD AND CARE.
--- NOTE | 2016-10-21 19:17 | NUR ---
PT KEPT CLEAN, DRY AND COMFORTABLE. NEEDS ATTENDED, NO SOB NOTED. PT DENIES ANY PAIN OR DISCOMFORT AT THIS TIME. PT ENDORSED TO NEXT SHIFT ON STABLE CONDITION FOR CONTINUITY OF CARE. NO SUICIDAL IDEATION NOTED ON SHIFT.
--- NOTE | 2016-10-21 19:17 | NUR ---
RECEIVED REPORT AT BEDSIDE. PATIENT WAS ASLEEP BUT EASILY AROUSABLE. NO S/SX OF DISTRESS NOTED. PATIENT ON ROOM AIR. IV LINE ON RIGHT FOREARM INTACT AND ASYMPTOMATIC. BED LOWERED AND CALL LIGHT IN REACH. WILL CONTINUE TO MONITOR.
[2016-10-21 20:00] VITALS: BP 126/91
--- NOTE | 2016-10-21 20:20 | NUR ---
PATIENT COMPLAINS OF ANXIETY. PRN ATIVAN ADMINISTERED. WILL CONTINUE TO MONITOR
[2016-10-22] VITALS: BP 95/52
--- NOTE | 2016-10-22 01:27 | NUR ---
PATIENT ASLEEP IN BED. NO S/S OF DISTRESS NOTED
--- NOTE | 2016-10-22 05:23 | NUR ---
PATIENT ASLEEP IN BED. NO S/S OF DISTRESS NOTED
[2016-10-22] MEDS: BLOOD GLUCOSE MONITORING 1 DEV DEV FS SCH ×4 (06:50→21:40)
[2016-10-22] MEDS: INSULIN LISPRO SLIDING SCALE 100 UNITS/ML VIAL SUBQ PRN ×4 (06:50→21:41)
--- NOTE | 2016-10-22 07:27 | NUR ---
PATIENT REPORT GIVEN AT BEDSIDE. PATIENT ENDORSED IN STABLE CONDITION
--- NOTE | 2016-10-22 07:32 | NUR ---
RECEIVED REPORT FROM PRATIBHA PACHECO. PT IS SLEEPING IN BED BUT EASILY AWAKEN, A/OX4, AMBULATORY, IV IS ON THE LT FA, PATENT, INTACT, FLUSHING WELL, NO S/S OF RESPIRATORY DISTRESS OR DISCOMFORT NOTED, DISCUSSED PLAN OF CARE WITH PT, PT VERBALIZED UNDERSTANDING, CALL LIGHT WITHIN REACH, WILL CONTINUE TO MONITOR.
[2016-10-22 08:00] VITALS: BP 115/65
--- NOTE | 2016-10-22 09:00 | NUR ---
PATIENT REFUSED MORNING LABS. SHE STATED SHE WANTED TO WAIT UNTIL AFTER BREAKFAST.
--- NOTE | 2016-10-22 09:02 | NUR ---
Social Service Note: I called [facility] and spoke with Tomasa. Per Tomasa, their monthly rate is $425.
[2016-10-22] MEDS: LORazepam 2 MG/ML VIAL IVP PRN (09:33)
[2016-10-22] MEDS: NICOTINE TRANSD SYS 21 MG/24 HR PATCH TD SCH (09:33)
--- NOTE | 2016-10-22 11:00 | NUR ---
PATIENT SLEEPING IN BED AT THIS TIME, CALL LIGHT WITHIN REACH.
--- NOTE | 2016-10-22 11:32 | NUR ---
SS NOTE: PER RD FROM THE [facility], PT WAS NOT ACCEPTED BECAUSE PT HAS TOO MANY MEDICAL PROBLEMS. SHE ALSO STATED THAT PT WOULD NEED TO BE COMPLIANT WITH HER PSYCH MEDS AND BE ABLE TO TAKE THEM HERSELF SINCE THEY ARE A WORK BASED PROGRAM SO THEY DO NOT THINK THAT PT IS APPROPRIATE FOR THEIR PROGRAM.
--- NOTE | 2016-10-22 12:29 | NUR ---
10/22/16 RD FOLLOW-UP ASSESSMENT COMPLETED PLEASE REFER TO NUTRITION ASSESSMENT UNDER CARE ACTIVITY FOR ESTIMATED NUTRITIONAL NEEDS. 1. CONTINUE 60 GM CONSISTENT CARBOHYDRATE DIET 2. RD TO FOLLOW-UP 7 DAYS; LOW RISK JAIDA GRANGER RD
--- NOTE | 2016-10-22 12:31 | NUR ---
SS NOTE: SENT PSYCH PLACEMENT INQUIRIES TO: - [facility] (C: [phone]) - [facility] (C: [phone]) - [facility] (C: [phone]) PER BLANQUITA FROM [facility], NO BEDS AVAILABLE
--- NOTE | 2016-10-22 13:00 | NUR ---
PATIENT IN RESTROOM AT THIS TIME.
--- NOTE | 2016-10-22 14:05 | NUR ---
PATIENT RESTING IN BED AT THIS TIME, WATCHING TV, CALL LIGHT WITHIN REACH.
--- NOTE | 2016-10-22 14:07 | NUR ---
SS NOTE: PER JASON FROM [facility] ([phone]), THEY RECEIVED PT'S INFORMATION BUT HAVE NOT REVIEWED IT YET PER RONA FROM [facility] ([phone]), NO BEDS AVAILABLE AT THIS TIME BUT THEY RECEIVED PT'S INFORMATION AND WILL CALL IF THEY HAVE A BED AVAILABLE PER FARAZ FROM [facility], NO ADULT FEMALE BEDS AT THIS TIME PER HECTOR FROM [facility], NO FEMALE BEDS AVAILABLE
[2016-10-22 16:00] VITALS: BP 114/89
--- NOTE | 2016-10-22 16:01 | NUR ---
SS NOTE: SENT INQUIRY TO THE FOLLOWING SNFS THAT HAVE A PSYCH COMPONENT: [facility], [facility] AND [facility]
--- NOTE | 2016-10-22 16:20 | NUR ---
PT SLEEPING IN BED, CALL LIGHT WITHIN REACH.
[2016-10-22] MEDS: HALOPERIDOL IM 5 MG/ML VIAL IM PRN (17:25)
--- NOTE | 2016-10-22 17:25 | NUR ---
PATIENT IN ROOM YELLING SHE WANTS A SHOT TO CALM HER DOWN BECAUSE SHE IS FRUSTRATED AND ANGRY.
--- NOTE | 2016-10-22 19:15 | NUR ---
ENDORSED PT TO PRATIBHA MAYES. FOR CONTINUITY OF CARE, PT STABLE AT THIS TIME.
--- NOTE | 2016-10-22 19:20 | NUR ---
RECEIVED PLAN OF CARE FROM AM NURSE. PT SLEEPING IN BED, BUT AROUSABLE TO ANSWER SIMPLE QUESTIONS. PT AOX4, ABLE TO VERBALIZE NEEDS, SLEEPY AT THIS TIME. PT DENIES CHEST PAIN, SOB OR S/S OF ACUTE DISTRESS. IV ACCESS ASYMPTOMATIC, PATENT AND INTACT. SALINE LOCKED. DISCUSSED PLAN OF CARE WITH PT. PT STATED "OKAY." ALL NEEDS MET. SAFETY MEASURES ENSURED. CALL LIGHT WITHIN REACH. WILL CONTINUE TO MONITOR.
[2016-10-22 20:00] VITALS: BP 95/47
--- NOTE | 2016-10-22 21:41 | NUR ---
BLOOD SUGAR 248, ADMINISTERED INSULIN COVERAGE ORDERED. PT TOLERATED WELL. ALL NEEDS MET. SAFETY MEASURES ENSURED. CALL LIGHT WITHIN REACH. WILL CONTINUE TO MONITOR. Addendum: 10/23/16 at 0119 by Nasim Michael RN BLOOD SUGAR 298, ADMINISTERED INSULIN COVERAGE ORDERED. PT TOLERATED WELL.
[2016-10-23] VITALS: BP 106/64
--- NOTE | 2016-10-23 | NUR ---
PT SLEEPING COMFORTABLY. NO S/S OF ACUTE DISTRESS. ALL NEEDS MET. SAFETY MEASURES ENSURED. CALL LIGHT WITHIN REACH. WILL CONTINUE TO MONITOR.
--- NOTE | 2016-10-23 04:15 | NUR ---
PT SLEEPING. CONDITION STABLE. NO S/S OF ACUTE DISTRESS. ALL NEEDS MET. SAFETY MEASURES ENSURED. CALL LIGHT WITHIN REACH. WILL CONTINUE TO MONITOR.
[2016-10-23] MEDS: BLOOD GLUCOSE MONITORING 1 DEV DEV FS SCH ×4 (06:45→21:37)
[2016-10-23] MEDS: INSULIN LISPRO SLIDING SCALE 100 UNITS/ML VIAL SUBQ PRN ×4 (06:47→21:51)
--- NOTE | 2016-10-23 07:20 | NUR ---
ENDORSED PLAN OF CARE TO AM NURSE. CONDITION STABLE.
--- NOTE | 2016-10-23 07:21 | NUR ---
RECEIVED REPORT FROM SUGEY MCKINNON AT BEDSIDE. PT IS SLEEPING. UPDATED THE BOARD. NO DISTRESS NOTED. PT HAS IV ON L FA 24G SL. CALL LIGHT WITHIN REACH. WILL CONTINUE TO MONITOR.
--- NOTE | 2016-10-23 08:00 | NUR ---
PT REFUSED BP AT THIS TIME. WILL ASK AGAIN.
[2016-10-23] MEDS: HALOPERIDOL IM 5 MG/ML VIAL IM PRN (08:19)
--- NOTE | 2016-10-23 09:30 | NUR ---
PT REFUSED BP TO BE CHECKED.
[2016-10-23] MEDS: NICOTINE TRANSD SYS 21 MG/24 HR PATCH TD SCH (09:46)
--- NOTE | 2016-10-23 11:00 | NUR ---
PT IS SLEEPING IN BED. NO DISTRESS NOTED. CALL LIGHT WITHIN REACH. WILL CONTINUE TO MONITOR.
--- NOTE | 2016-10-23 11:30 | NUR ---
PT INITIALLY REFUSED BS TO BE CHECKED. EDUCATED PT THAT WITH HER HIGH BS, IT IS DANGEROUS TO EAT WITHOUT GETTING INSULIN. PT AGREED TO CHECK BS, STILL REFUSED BP.
--- NOTE | 2016-10-23 13:00 | NUR ---
PT IS RESTING COMFORTABLY IN BED. NO DISTRESS NOTED. CALL LIGHT WITHIN REACH. WILL CONTINUE TO MONITOR.
--- NOTE | 2016-10-23 15:55 | NUR ---
PT REFUSED BP TO BE CHECKED.
--- NOTE | 2016-10-23 16:49 | NUR ---
PT C/O CONSTIPATION. SPOKE TO DR. PACHECO, DR PACHECO ORDERED COLACE QHS. WILL CARRY OUT ORDER.
[2016-10-23] MEDS ORDERED: BACLOFEN 10 MG TAB PO PRN (17:35)
--- NOTE | 2016-10-23 17:40 | NUR ---
PT C/O PAIN IN NECK AND REQUESTS MUSCLE RELAXANT. SPOKE TO DR. PACHECO, RECEIVED ORDER FOR BACLOFEN. WILL CARRY OUT ORDER.
--- NOTE | 2016-10-23 18:39 | NUR ---
PT IS SLEEPING COMFORTABLY RIGHT NOW. WILL CONTINUE TO MONITOR. CALL STEWART WITHIN REACH.
--- NOTE | 2016-10-23 19:10 | NUR ---
RECEIVED PATIENT REPORT AT BEDSIDE. PATIENT CALMLY ASLEEP. NO S/S OF DISTRESS NOTED. IV TO THE LEFT FOREARM INTACT AND ASYMPTOMATIC, SALINE LOCKED. BED LOWERED WITH CALL LIGHT WITHIN REACH. WILL CONTINUE TO MONITOR
--- NOTE | 2016-10-23 19:10 | NUR ---
ENDORSED PT TO TOY ASSEMBLY SUPERVISOR NURSE AT BEDSIDE. PT IN STABLE CONDITION.
[2016-10-23 19:29] LABS: BASOPHILS # (AUTO) 0.4 K/uL (0.00-0.22); EOSINOPHILS # (AUTO) 0.1 K/uL (0-0.4); HEMATOCRIT 39.3 % (36-48); HEMOGLOBIN 12.7 g/dL (12.0-16.0); LYMPHOCYTES # (AUTO) 2.4 K/uL (2.5-16.5); MEAN CORPUSCULAR HEMOGLOBIN 24 pg (27-31); MEAN CORPUSCULAR HGB CONC 32 g/dL (33-37); MEAN CORPUSCULAR VOLUME 75 fL (80-94); MONOCYTES # (AUTO) 0.4 K/uL (0.8-1.0); NEUTROPHILS # (AUTO) 8.7 K/uL (1.8-7.7); PLATELET COUNT (AUTO) 256 K/uL (140-450); RED BLOOD CELL COUNT(AUTO) 5.22 MIL/uL (4.20-5.40); RED CELL DISTRIBUTION WIDTH 16.8 % (11.6-13.7)
[2016-10-23 19:32] LABS: ANION GAP 11.5 (8-16); CALCIUM 8.6 mg/dL (8.5-10.1); CARBON DIOXIDE 29.6 mmol/L (21-32); CREATININE 0.7 mg/dL (0.6-1.3); POTASSIUM 4.1 mmol/L (3.5-5.1)
[2016-10-23 20:00] VITALS: BP 106/70
[2016-10-23] MEDS ORDERED: DOCUSATE SODIUM 100 MG GELCAP PO SCH (21:00)
[2016-10-24] VITALS: BP 125/92
--- NOTE | 2016-10-24 04:53 | NUR ---
PATIENT ASLEEP IN BED. NO S/S OF DISTRESS NOTED
--- NOTE | 2016-10-24 06:33 | NUR ---
PATIENT REFUSES BLOOD DRAW AT THE MOMENT
--- NOTE | 2016-10-24 07:27 | NUR ---
PATIENT REPORT GIVEN AT BEDSIDE. PATIENT ENDORSED IN STABLE CONDITION
[2016-10-24] MEDS: BLOOD GLUCOSE MONITORING 1 DEV DEV FS SCH ×2 (07:30→11:33)
--- NOTE | 2016-10-24 07:30 | NUR ---
REPORT RECEIVED FROM PM NURSE. PT AWAKE, ALERT AND ORIENTED X4. PT IN BED SLEEPING. PT DENIES PAIN AND DISCOMFORT. NO SIGNS OF SOB, RESTLESSNESS OR DISTRESS. RR EVEN AND UNLABORED. SKIN IS INTACT AND COLOR WNL. PT REFUSED MORNING VS. INITIAL ASSESSMENT DONE. POC REVIEWED WITH PT. IV SITE PATENT. CALL LIGHT WITHIN REACH, BED ON LOW POSITION. SAFETY MEASURES IN PLACE. WILL CONTINUE TO MONITOR
[2016-10-24] MEDS: NICOTINE TRANSD SYS 21 MG/24 HR PATCH TD SCH (09:00)
[2016-10-24 10:28] LABS: BASOPHILS # (AUTO) 0.1 K/uL (0.00-0.22); BASOPHILS % (AUTO) 1.5 % (0.0-2.0); EOSINOPHILS # (AUTO) 0.1 K/uL (0-0.4); EOSINOPHILS % (AUTO) 0.8 % (0.0-4.0); HEMATOCRIT 40.1 % (36-48); LYMPHOCYTES # (AUTO) 2.1 K/uL (2.5-16.5); LYMPHOCYTES % (AUTO) 23.7 % (20.5-51.1); MEAN CORPUSCULAR HEMOGLOBIN 25 pg (27-31); MEAN CORPUSCULAR HGB CONC 32 g/dL (33-37); MEAN CORPUSCULAR VOLUME 76 fL (80-94); MONOCYTES # (AUTO) 0.5 K/uL (0.8-1.0); MONOCYTES % (AUTO) 5.1 % (1.7-9.3); NEUTROPHILS # (AUTO) 6.1 K/uL (1.8-7.7); NEUTROPHILS % (AUTO) 68.9 % (42.2-75.2); PLATELET COUNT (AUTO) 241 K/uL (140-450); RED BLOOD CELL COUNT(AUTO) 5.29 MIL/uL (4.20-5.40); RED CELL DISTRIBUTION WIDTH 16.9 % (11.6-13.7); WHITE BLOOD COUNT (AUTO) 8.9 K/uL (4.8-10.8)
[2016-10-24 10:43] LABS: CALCIUM 8.6 mg/dL (8.5-10.1); CARBON DIOXIDE 29.1 mmol/L (21-32); CREATININE 0.7 mg/dL (0.6-1.3); POTASSIUM 4.1 mmol/L (3.5-5.1)
[2016-10-24 11:27] VITALS: BP 112/68
--- NOTE | 2016-10-24 11:30 | NUR ---
PT ALLOWED FINGERSTICK GLUCOSE AND PARTIAL VS. PT WOULD NOT ALLOW US TO TAKE TEMP, CURSING AT STAFF. PT LOOKS COMFORTABLE, WITH NO ACUTE DISTRESS. WENT BACK TO SLEEP. NO SIGNS SOB. SAFETY MEASURES IN PLACE. CALL LIGHT WITHIN REACH. BED ON LOW POSITION. WILL CONTINUE TO MONITOR.
[2016-10-24] MEDS: INSULIN LISPRO SLIDING SCALE 100 UNITS/ML VIAL SUBQ PRN (12:54)
--- NOTE | 2016-10-24 13:03 | NUR ---
PT IS UP AND DOING HER PERSONAL HYGIENE. INSULIN WAS GIVEN, BLOOD GLUCOSE IS 214. PT TOLERATED IT WELL. PT IS COOPERATIVE, DENIES PAIN OR DISCOMFORT. SHE STATED THAT SHE WANTS TO SHOWER, SUPPLIES ARE GIVEN. SAFETY MEASURES IN PLACE. NO SIGNS OF DISTRESS, SOB, OR RESTLESSNESS. WILL CONTINUE TO MONITOR.
--- NOTE | 2016-10-24 15:21 | NUR ---
PT LAYING IN BED, DENIES PAIN AND DISCOMFORT. NO SOB, RESTLESSNESS, OR DISTRESS. CALL LIGHT WITHIN REACH. BED ON LOW POSTION. PT IS COOPERATIVE AT THIS TIME. SAFETY MEASURE IN PLACED. WILL CONTINUE TO MONITOR.
[2016-10-24] MEDS ORDERED: LORazepam 1 MG TAB PO PRN (16:35)
[2016-10-24] MEDS ORDERED: LORazepam 2 MG/ML VIAL IM/IVP PRN (17:10)
--- NOTE | 2016-10-24 17:15 | NUR ---
PT GOT SEVERELY ANGRY WHEN NURSE ARRIVED WITH PO ATIVAN ORDERED BY DR PACHECO, PT STATES SHE WANTED IV ATIVAN, PT SCREAMING, CURSING, PT JUMPPED OUT OF BED, RIPPED OFF CURTAINS IN ROOM, AGGRESSIVELY CHARGED AT CHARGE NURSE BERNICE ALMOST HITTING HER, CODE SCOTT CALLED, PT DE-ESCALATED WHEN TEAM ARRIVED, PT REFUSES HALDAL IM, PT CONTINUED TO DEMAND IV ATIVAN BUT AGREED TO TAKE PO ATIVAN WHILE DR PACHECO WAS CALLED FOR IV ATIVAN ORDER. DR PACHECO REACHED SHORTLY LATER, ORDER RECIEVED FOR IV ATIVAN 1MG Q4H PRN, IV ATIVAN GIVEN, PT CALM NOW, LAUGHING JOKING, SAFETY MEASURES ENSURED, CALL STEWART WITHIN REACH, WILL CONTINUE TO MONITOR.
[2016-10-24] MEDS ORDERED: LORazepam 2 MG/ML VIAL ONE (17:22)
--- NOTE | 2016-10-24 17:57 | NUR ---
PT SEEN WALKING DOWN THE HALLWAY OUT THE BACK DOOR, ATTEMPTS MADE BY STAFF TO TALK HER INTO STAYING BUT PT KEPT WALKING OUT AND ACROSS THE STREET WITH STEADY GAIT, PT WAS ALREADY DRESSED IN HER OWN CLOTHING, PERSONALS BELONGINGS IN HER HAND, 24G IV FOUND ON THE FLOOR OF ROOM 109 WITH CATH TIP INTACT, DR PACHECO PAGED AND NOTIFIED OF PT ELOPEMENT.
--- NOTE | 2016-10-24 21:51 | NUR ---
TALKED TO KWAKU NORWOOD MADE AWARE PT ELOPED AROUND 183
== END 2016-10-24 17:55 | disposition left against medical advice (07) | DRG 720 ==
LOC: MED 16:53 → MTU 22:21
PROVIDERS: ADMIT Preventive Medicine Preventive Medicine/Occupational Environmental Medicine; ATTEND Preventive Medicine Preventive Medicine/Occupational Environmental Medicine
DX: A41.9 Sepsis, unspecified organism (principal); E87.0 Hyperosmolality and hypernatremia; I42.9 Cardiomyopathy, unspecified; R45.851 Suicidal ideations; E11.65 Type 2 diabetes mellitus with hyperglycemia; F15.20 Other stimulant dependence, uncomplicated; J45.909 Unspecified asthma, uncomplicated; I10 Essential (primary) hypertension; E88.09 Other disorders of plasma-protein metabolism, not elsewhere classified; E87.1 Hypo-osmolality and hyponatremia; C56.9 Malignant neoplasm of unspecified ovary; F17.210 Nicotine dependence, cigarettes, uncomplicated; F31.64 Bipolar disorder, current episode mixed, severe, with psychotic features; N39.0 Urinary tract infection, site not specified; I25.10 Atherosclerotic heart disease of native coronary artery without angina pectoris; Z86.73 Personal history of transient ischemic attack (TIA), and cerebral infarction without residual deficits; Z59.0 Homelessness; Z91.5 Personal history of self-harm; Z79.2 Long term (current) use of antibiotics; Z79.899 Other long term (current) drug therapy
CPT/HCPCS: 36415; 80048; 80053; 80305; 81001; 82948; 85025; 85651; 86140; 87040; 87081; 87086; 93005; 94640; 96361; 96374; 96375; 99285; G0480; G0482; J1630; J1815; J1885; J2060; J7030; J7620

== ENCOUNTER 2017-02-13 01:22 | Emergency (ER) | payer MEDICAID ==
[~2017-02-13] VITALS: Ht 152.4 cm; Wt 92.7 kg
[~2017-02-13 01:22] MED LIST changes: -PHEN-136 PO; +PHEN-1749 PO
[2017-02-13 01:26] VITALS: BP 142/86
--- NOTE | 2017-02-13 02:16 | NUR ---
AMBULATED TO ER BED 7
--- NOTE | 2017-02-13 02:30 | NUR ---
51Y/F PT. PRESENTS TO ED WITH C/O HIGH BLOOD SUGAR . WITH REDNESS, PAIN ON HER LEFT FOREARM FOR 2 DAYS. HX. HTN, DM. AAO X 4, AMBULATORY WITH STEDAY GAIT. RESPIRATIONS ROOM AIR, EVEN AND UNLABORED. C/O PAIN 10/28. VSS, ER MD MADE AWARE OFPT. STATUS.
--- NOTE | 2017-02-13 02:30 | NUR ---
Patient being evaluated by DR. ZHAO at bedside.
[2017-02-13 02:43] LABS: BASOPHILS # (AUTO) 0.1 K/uL (0.00-0.22); BASOPHILS % (AUTO) 1.3 % (0.0-2.0); EOSINOPHILS # (AUTO) 0.1 K/uL (0-0.4); EOSINOPHILS % (AUTO) 0.5 % (0.0-4.0); HEMATOCRIT 37.4 % (36-48); HEMOGLOBIN 12.2 g/dL (12.0-16.0); LYMPHOCYTES # (AUTO) 3.2 K/uL (2.5-16.5); LYMPHOCYTES % (AUTO) 28.8 % (20.5-51.1); MEAN CORPUSCULAR HEMOGLOBIN 25 pg (27-31); MEAN CORPUSCULAR HGB CONC 33 g/dL (33-37); MEAN CORPUSCULAR VOLUME 78 fL (80-94); MONOCYTES # (AUTO) 0.5 K/uL (0.8-1.0); MONOCYTES % (AUTO) 4.3 % (1.7-9.3); NEUTROPHILS # (AUTO) 7.2 K/uL (1.8-7.7); NEUTROPHILS % (AUTO) 65.1 % (42.2-75.2); PLATELET COUNT (AUTO) 237 K/uL (140-450); RED BLOOD CELL COUNT(AUTO) 4.82 MIL/uL (4.20-5.40); RED CELL DISTRIBUTION WIDTH 15.3 % (11.6-13.7); WHITE BLOOD COUNT (AUTO) 11.1 K/uL (4.8-10.8)
[2017-02-13] MEDS ORDERED: NACL 0.9% 2,000 ML IV ONE (02:45)
[2017-02-13] MEDS ORDERED: ONDANSETRON 4 MG/2 ML VIAL IVP ONE (02:45)
[2017-02-13 02:48] LABS: ANION GAP 8.7 (8-16); CARBON DIOXIDE 30.5 mmol/L (21-32); CREATININE 0.9 mg/dL (0.6-1.3); POTASSIUM 3.2 mmol/L (3.5-5.1)
[2017-02-13 02:54] LABS: TOTAL BILIRUBIN 0.2 mg/dL (0.0-1.0)
[2017-02-13] MEDS ORDERED: LORazepam 2 MG/ML VIAL IVP ONE (03:15)
[2017-02-13] MEDS ORDERED: INSULIN HUMAN REGULAR 100 UNITS/ML 10 ML VIAL SUBQ ONE (04:10)
[2017-02-13 04:22] LABS: APPEARANCE,URINE CLEAR (CLEAR); BILIRUBIN,URINE NEGATIVE (NEGATIVE); BLOOD, URINE NEGATIVE (NEGATIVE); COLOR,URINE YELLOW (YELLOW); LEUKOCYTE ESTERASE ,URINE NEGATIVE (NEGATIVE); NITRITE, URINE NEGATIVE (NEGATIVE); UGLUCOSE 3+ (NEGATIVE)
[2017-02-13 04:57] LABS: RBC,URINE NONE SEEN /HPF (0-5); WBC,URINE NONE SEEN /HPF (0-5)
--- NOTE | 2017-02-13 05:05 | NUR ---
Patient appears to be resting comfortably in bed. Vital Signs within normal limits. Respirations even and unlabored.
[2017-02-13 07:18] VITALS: BP 126/81
== END 2017-02-13 07:30 | disposition home or self-care (01) ==
LOC: MED 01:22
DX: R53.1 Weakness (principal); E11.9 Type 2 diabetes mellitus without complications; F19.90 Other psychoactive substance use, unspecified, uncomplicated; F17.210 Nicotine dependence, cigarettes, uncomplicated; M79.7 Fibromyalgia; Z85.43 Personal history of malignant neoplasm of ovary; Z79.899 Other long term (current) drug therapy
CPT/HCPCS: 36415; 71010; 80053; 81001; 81025; 82948; 83690; 84484; 85025; 93005; 96361; 96374; 96375; 99285; J1815; J2060; J2405; J7030; Q0092

== ENCOUNTER 2017-02-13 23:23 | Emergency (ER) | payer MEDICAID ==
[~2017-02-13] VITALS: Ht 149.9 cm; Wt 94.5 kg
[2017-02-13 23:40] VITALS: BP 148/85
--- NOTE | 2017-02-13 23:46 | NUR ---
AMBULATED TO ER BED 11
--- NOTE | 2017-02-13 23:55 | NUR ---
51/F CAME IN W C/O ANXIETY. PT WAS SEEN HERE YESTERDAY FOR HIGHBLOOD SUGAR. PT IS TRANSIENT. STATES SHE TAKES "INSULIN SHOT AND METFORMIN TWICE DAILY". CURRENT BS: 366, ER MD SAWYER AWARE HX: METH USE
[2017-02-14] MEDS: LORazepam 1 MG TAB PO ONE (00:09)
[2017-02-14] MEDS: INSULIN HUMAN REGULAR 100 UNITS/ML 10 ML VIAL SUBQ ONE (00:11)
[2017-02-14 00:33] VITALS: BP 132/78
--- NOTE | 2017-02-14 00:33 | NUR ---
Patient discharged with v/s stable. Written and verbal after care instructions given and explained. Patient alert, oriented and verbalized understanding of instructions. Ambulatory with steady gait. All questions addressed prior to discharge. ID band removed. Patient advised to follow up with PMD. Rx of ATIVAN AND METFORMIN given. Patient educated on indication of medication including possible reaction and side effects. Opportunity to ask questions provided and answered.
== END 2017-02-14 00:33 | disposition home or self-care (01) ==
LOC: MED 23:23
DX: F41.9 Anxiety disorder, unspecified (principal); E11.65 Type 2 diabetes mellitus with hyperglycemia; F15.90 Other stimulant use, unspecified, uncomplicated
CPT/HCPCS: 82948; 96372; 99284; J1815

== ENCOUNTER 2017-12-21 12:25 | Inpatient (IN) | payer MEDICAID ==
[~2017-12-21] VITALS: Ht 152.4 cm; Wt 97.5 kg
[2017-12-21 12:32] VITALS: BP 100/58
--- NOTE | 2017-12-21 12:38 | NUR ---
WAITING FOR AVAILABLE BED
--- NOTE | 2017-12-21 13:24 | NUR ---
PT BIBA BLS TO ER BED 12
--- NOTE | 2017-12-21 13:43 | NUR ---
PT BIB EMS FROM [facility] IN THE BOX WITH C/O BODY ACHES, GREATER RT FLANK PAIN 10/ X 3 DAYS; [place] [facility] [place] SAME S[place]S. VSS; PATIENT POSITIONED FOR COMFORT; HOB ELEVATED; BEDRAILS UP X2; BED DOWN. ER MD MADE AWARE OF PT STATUS.
[2017-12-21] MEDS ORDERED: NACL 0.9% 1,000 ML IV ONE ×2 (14:40)
--- NOTE | 2017-12-21 15:00 | NUR ---
Patient appears to be resting comfortably in bed. Vital Signs within normal limits. Respirations even and unlabored.
[2017-12-21 15:56] LABS: BASOPHILS # (AUTO) 0.1 K/uL (0.00-0.22); BASOPHILS % (AUTO) 0.5 % (0.0-2.0); EOSINOPHILS % (AUTO) 0.1 % (0.0-4.0); HEMATOCRIT 36.2 % (36-48); HEMOGLOBIN 11.6 g/dL (12.0-16.0); LYMPHOCYTES # (AUTO) 1.6 K/uL (2.5-16.5); LYMPHOCYTES % (AUTO) 10.1 % (20.5-51.1); MEAN CORPUSCULAR HEMOGLOBIN 26 pg (27-31); MEAN CORPUSCULAR HGB CONC 32 g/dL (33-37); MEAN CORPUSCULAR VOLUME 79.7 fL (80-94); MONOCYTES # (AUTO) 1.2 K/uL (0.8-1.0); MONOCYTES % (AUTO) 7.5 % (1.7-9.3); NEUTROPHILS # (AUTO) 13.2 K/uL (1.8-7.7); NEUTROPHILS % (AUTO) 81.8 % (42.2-75.2); PLATELET COUNT (AUTO) 235 K/uL (140-450); RED BLOOD CELL COUNT(AUTO) 4.55 MIL/uL (4.20-5.40); RED CELL DISTRIBUTION WIDTH 16.4 % (11.6-13.7); WHITE BLOOD COUNT (AUTO) 16.2 K/uL (4.8-10.8)
[2017-12-21 16:08] LABS: APPEARANCE,URINE CLEAR (CLEAR); BILIRUBIN,URINE NEGATIVE (NEGATIVE); BLOOD, URINE NEGATIVE (NEGATIVE); COLOR,URINE YELLOW (YELLOW); LEUKOCYTE ESTERASE ,URINE NEGATIVE (NEGATIVE); NITRITE, URINE NEGATIVE (NEGATIVE); PH,URINE 5.5 (5.0-9.0); UGLUCOSE 3+ (NEGATIVE)
[2017-12-21 16:13] LABS: BARBITURATE, URINE NEG. ng/ml (NEG <=200); BENZODIAZEPINE, URINE NEG. ng/mL (NEG <=200); CANNABINOID, URINE NEG. ng/mL (NEG <=50); COCAINE, URINE NEG. ng/mL (NEG <=300); OPIATE, URINE NEG. ng/mL (NEG <=2000); PHENCYCLIDINE SCREEN,URINE NEG. ng/mL (NEG <=25)
[2017-12-21 16:18] LABS: ANION GAP 7.8 (8-16); CARBON DIOXIDE 29.1 mmol/L (21-32); CHLORIDE 97 mmol/L (98-107); CREATININE 0.9 mg/dL (0.6-1.3); GFR ARICAN-AMERICAN 85 mL/min (>90); GLUCOSE 364 mg/dL (74-106); POTASSIUM 3.9 mmol/L (3.5-5.1); SODIUM SERUM 130 mmol/L (136-145); UREA NITROGEN, BLOOD 7 mg/dL (7-18)
[2017-12-21 16:32] LABS: ALBUMIN 2.3 g/dL (3.4-5.0); ASPARTATE AMINOTRANSFERASE 16 U/L (15-37); LIPASE 74 U/L (73-393); MAGNESIUM 1.7 mg/dL (1.8-2.4); THYROID STIMULATING HORMONE 1.11 uIU/mL (0.34-3.74); TOTAL BILIRUBIN 0.5 mg/dL (0.0-1.0)
[2017-12-21 16:33] LABS: SALICYLATE < 2.8 mg/dL (2.8-20.0)
[2017-12-21 16:34] LABS: ACETAMINOPHEN < 0.5 ug/ml (10-30)
--- NOTE | 2017-12-21 17:00 | NUR ---
Patient appears to be resting comfortably in bed. Vital Signs within normal limits. Respirations even and unlabored.
[2017-12-21] MEDS ORDERED: PIPERACILLIN/TAZOBACTAM 4.5 GM in DEXTROSE 5% 100 ML IV ONE (17:10)
[2017-12-21] MEDS ORDERED: VANCOMYCIN PER PHARMACY MC PRN (17:10)
[2017-12-21] MEDS ORDERED: DOCUSATE SODIUM 100 MG GELCAP PO PRN (17:25)
[2017-12-21] MEDS ORDERED: ONDANSETRON 4 MG/2 ML VIAL IM/IVP PRN (17:25)
[2017-12-21] MEDS: NACL 0.9% 1,000 ML IV SCH (17:25)
[2017-12-21] MEDS ORDERED: LORazepam 2 MG/ML VIAL IM/IVP PRN (17:25)
[2017-12-21] MEDS ORDERED: PIPERACILLIN/TAZOBACTAM 2.25 GM VIAL IV ONE (18:05)
[2017-12-21 18:35] LABS: PROTHROMBIN TIME 9.2 secs (10.8-13.4)
[2017-12-21 18:40] LABS: PHOSPHORUS 2.8 mg/dL (2.5-4.9); THYROID STIMULATING HORMONE 1.17 uIU/mL (0.34-3.74)
--- NOTE | 2017-12-21 18:40 | NUR ---
RECEIVED PT'S REPORT FROM ER NURSE, PT IS AWAKE AND LYING ON THE GURNEY, ASSISTED PT TO THE BED AND MADE COMFORTABLE,VITAL SIGNS TAKEN AND IS WITHIN NORMAL LIMITS, BILLING REPRESENTATIVE WAS PLACED. PT HAS AN IV LINE ON THE RT AC G. 22, INTACT WITH NS RUNNING AT 30ML/HR. PT VERBALIZED A PAIN RATE OF 10/10 FOR HER RT LOWER BACK ABSCESS. PT IS NON- COMPLIANT WITH THE ASSESSMENT SO ABSCESS WAS NOT SEEN. WILL ENDORSE TO BUSINESS OPERATIONS COORDINATOR NURSE.
--- NOTE | 2017-12-21 18:40 | NUR ---
Patient will be admitted to care of DR. AYALA. Admited to TELE. Will go to room 111B. Belongings list completed. Report to PRATIBHA.
[2017-12-21] MEDS ORDERED: DEXTROSE 50% 50 ML SYR IVP PRN (18:55)
--- NOTE | 2017-12-21 19:10 | NUR ---
PT'S REPORT WAS GIVEN TO RESIDENT ASSISTANT CNA NURSE, RAZA FOR CONTINUITY OF CARE AND ADMISSION PROCESS. PT IS SLEEPING AND STABLE AT THIS TIME.
--- NOTE | 2017-12-21 19:11 | NUR ---
RECEIVED PT FROM DAY SHIFT NURSE WYATT-PRATIBHA AT BEDSIDE. PT AOX4, AMBULATORY, ON ROOM AIR WITH RIGHT AC #22G RUNNING NS @ 60ML/HR. PT HAS RIGHT HIP/FLANK OPEN WOUND CELLULITIS. DISCUSSED PLAN OF CARE AND PT VERBALIZED UNDERSTANDING. NO S/S OF RESPIRATORY DISTRESS OR DISCOMFORT NOTED AT THIS TIME. WILL CONTINUE TO MONITOR.
--- NOTE | 2017-12-21 19:11 | NUR ---
BED IN LOWEST POSITION, BED BREAKS ON, SIDE RAILS UP. BED SIDE TABLE AND CALL LIGHT ARE WITHIN REACH. NO S/S OF RESPIRATORY DISTRESS OR DISCOMFORT NOTED AT THIS TIME. WILL CONTINUE TO MONITOR.
[2017-12-21 20:00] VITALS: BP 118/60
--- NOTE | 2017-12-21 20:00 | NUR ---
BLOOD GLUCOSE 336-INSULIN COVERAGE NEEDED.
--- NOTE | 2017-12-21 20:00 | NUR ---
VITAL SIGNS TAKEN AND TOLERATED WELL. PT C/O 12/28 PAIN-WILL ADMINISTER PAIN MEDICATION. NO S/S OF RESPIRATORY DISTRESS. WILL CONTINUE TO MONITOR.
[2017-12-21] MEDS: MORPHINE SULFATE 2 MG/ML SYR IVP PRN (20:19)
[2017-12-21] MEDS: VANCOMYCIN 1GM/DEXT 5% PREMIX 200 ML IV SCH (20:20)
[2017-12-21] MEDS: BLOOD GLUCOSE MONITORING 1 DEV DEV FS SCH (20:20)
[2017-12-21] MEDS: INSULIN LISPRO SLIDING SCALE 100 UNITS/ML VIAL SUBQ PRN (20:29)
--- NOTE | 2017-12-21 20:29 | NUR ---
SCHEDULED MEDICATION GIVEN, MORPHINE SULFATE GIVEN FOR PAIN AND INSULIN COVERAGE GIVEN. PT TOLERATED WELL. NO S/S OF RESPIRATORY DISTRESS OR DISCOMFORT NOTED AT THIS TIME. WILL CONTINUE TO MONITOR.
[2017-12-21] MEDS: ACETAMINOPHEN 325 MG TAB PO PRN (21:29)
--- NOTE | 2017-12-21 21:29 | NUR ---
TYLENOL GIVEN FOR HEADACHE AND FEVER. PT TOLERATED WELL. NO S/S OF RESPIRATORY DISTRESS OR DISCOMFORT NOTED AT THIS TIME. WILL CONTINUE TO MONITOR.
--- NOTE | 2017-12-21 21:39 | NUR ---
PT REFUSED ULTRASOUND AND CT SCAN STATING "I DON'T WANT TO TONIGHT. I'LL DO THAT TOMORROW."
--- NOTE | 2017-12-21 23:00 | NUR ---
PT SLEEPING IN BED. NO S/S OF RESPIRATORY DISTRESS OR DISCOMFORT NOTED AT THIS TIME. WILL CONTINUE TO MONITOR.
[2017-12-22] VITALS: BP 121/60
--- NOTE | 2017-12-22 | NUR ---
VITAL SIGNS TAKEN AND TOLERATED WELL. NO S/S OF RESPIRATORY DISTRESS OR DISCOMFORT NOTED AT THIS TIME. WILL CONTINUE TO MONITOR.
[2017-12-22] MEDS: PIPER/TAZO 3.375GM/D5W PREMIX 50 ML IV SCH ×4 (00:03→18:43)
--- NOTE | 2017-12-22 02:00 | NUR ---
PT CONTINUES TO SLEEP. NO S/S OF RESPIRATORY DISTRESS OR DISCOMFORT NOTED AT THIS TIME. WILL CONTINUE TO MONITOR.
[2017-12-22] MEDS: MORPHINE SULFATE 2 MG/ML SYR IVP PRN ×3 (02:48→16:50)
--- NOTE | 2017-12-22 03:30 | NUR ---
PT REFUSING TO FOLLOW NPO ORDERS. [facility]U [facility]NA FOUND PT DRINKING WATER FROM THE [employer]. RE-EDUCATED PT HOWEVER SHE STATED, "I DON'T CARE!" PLACED NOTE ON [employer] TO REMIND PT. WILL CONTINUE TO MONITOR.
[2017-12-22 04:00] VITALS: BP 121/88
--- NOTE | 2017-12-22 04:00 | NUR ---
VITAL SIGNS TAKEN AND TOLERATED WELL. NO S/S OF RESPIRATORY DISTRESS OR DISCOMFORT NOTED AT THIS TIME. WILL CONTINUE TO MONITOR.
[2017-12-22] MEDS ORDERED: PIPERACILLIN/TAZOBACTAM 3.375 GM VIAL IV ONE ×2 (05:13)
--- NOTE | 2017-12-22 05:19 | NUR ---
SCHEDULED MEDICATION ZOSYN GIVEN AND TOLERATED WELL. NO S/S OF RESPIRATORY DISTRESS OR DISCOMFORT NOTED AT THIS TIME. WILL CONTINUE TO MONITOR.
--- NOTE | 2017-12-22 06:00 | NUR ---
BLOOD GLUCOSE 309- INSULIN COVERAGE NEEDED. PT OFF UNIT TO CT ABDOMINAL SCAN.
[2017-12-22] MEDS: BLOOD GLUCOSE MONITORING 1 DEV DEV FS SCH ×4 (06:03→21:44)
--- NOTE | 2017-12-22 06:25 | NUR ---
PT RETURNED BACK INTO UNIT FROM CT SCAN.
[2017-12-22] MEDS: INSULIN LISPRO SLIDING SCALE 100 UNITS/ML VIAL SUBQ PRN ×4 (06:29→21:45)
--- NOTE | 2017-12-22 06:29 | NUR ---
INSULIN COVERAGE GIVEN. PT TOLERATED WELL. NO S/S OF RESPIRATORY DISTRESS OR DISCOMFORT NOTED AT THIS TIME. WILL CONTINUE TO MONITOR.
[2017-12-22 07:03] LABS: BASOPHILS % (AUTO) 0.3 % (0.0-2.0); EOSINOPHILS % (AUTO) 0.3 % (0.0-4.0); HEMOGLOBIN 11.5 g/dL (12.0-16.0); LYMPHOCYTES # (AUTO) 1.6 K/uL (2.5-16.5); LYMPHOCYTES % (AUTO) 12.4 % (20.5-51.1); MEAN CORPUSCULAR HEMOGLOBIN 25 pg (27-31); MEAN CORPUSCULAR HGB CONC 32 g/dL (33-37); MEAN CORPUSCULAR VOLUME 79.5 fL (80-94); MONOCYTES # (AUTO) 0.8 K/uL (0.8-1.0); MONOCYTES % (AUTO) 6.5 % (1.7-9.3); NEUTROPHILS # (AUTO) 10.4 K/uL (1.8-7.7); NEUTROPHILS % (AUTO) 80.5 % (42.2-75.2); PLATELET COUNT (AUTO) 203 K/uL (140-450); RED BLOOD CELL COUNT(AUTO) 4.52 MIL/uL (4.20-5.40); RED CELL DISTRIBUTION WIDTH 16.1 % (11.6-13.7); WHITE BLOOD COUNT (AUTO) 12.9 K/uL (4.8-10.8)
--- NOTE | 2017-12-22 07:15 | NUR ---
RECEIVED PT REPORT FROM OUTBOARD MOTORBOAT OPERATOR NURSE AT BEDSIDE. PT IS AWAKE AND ALERT. IV LINE NOTED ON R AC INFUSING NS AT 20 ML/HR. PT IS NPO FOR UPCOMING IND PROCEDURE THIS AM. PT ON ROOM AIR. BED LOW, CALL LIGHT WITHIN REACH. WILL CONTINUE TO MONITOR.
--- NOTE | 2017-12-22 07:34 | NUR ---
ENDORSED PT CARE TO DAY SHIFT NURSE CHRISTY FOR CONTINUITY OF CARE.
[2017-12-22] MEDS ORDERED: ACYCLOVIR IV PER PHARMACY MC PRN (07:40)
[2017-12-22 07:45] LABS: MAGNESIUM 1.6 mg/dL (1.8-2.4); PHOSPHORUS 3.1 mg/dL (2.5-4.9)
[2017-12-22 07:47] LABS: CARBON DIOXIDE 29.8 mmol/L (21-32); CHOL/HDL RATIO 4.4 (1-4.5); CREATININE 0.8 mg/dL (0.6-1.3); POTASSIUM 3.8 mmol/L (3.5-5.1); TOTAL BILIRUBIN 0.4 mg/dL (0.0-1.0)
[2017-12-22 08:00] VITALS: BP 104/56
[2017-12-22] MEDS ORDERED: METF1000 PO (08:16)
[2017-12-22] MEDS: ACETAMINOPHEN 325 MG TAB PO PRN (08:17)
[2017-12-22] MEDS: GABAPENTIN 300 MG CAP PO SCH ×3 (08:18→16:19)
[2017-12-22] MEDS ORDERED: MAG SULF 2000 MG/WATER PREMIX 50 ML IV ONE (08:20)
--- NOTE | 2017-12-22 08:34 | NUR ---
PT LEAVING THE UNIT FOR I&D PROCEDURE.
[2017-12-22 08:40] LABS: T4 (THYROXINE) 7.3 ug/dL (4.5-12.0)
[2017-12-22] MEDS ORDERED: metFORMIN 500 MG TAB PO SCH (08:45)
[2017-12-22] MEDS ORDERED: BUPIVACAINE-MPF/EPI 0.25% 30 ML VIAL INJ ONE (08:48)
--- NOTE | 2017-12-22 08:55 | NUR ---
PATIENT HAS BEEN SCREENED AND CATEGORIZED HIGH NUTRITION RISK. PATIENT WILL BE SEEN WITHIN 1-2 DAYS OF ADMISSION. 12/22/17 12/23/[address]
[2017-12-22] MEDS ORDERED: MAGNESIUM OXIDE 400 MG TAB PO ONE (09:00)
[2017-12-22] MEDS ORDERED: CLINICAL MONITORING MC SCH (09:00)
[2017-12-22] MEDS ORDERED: GABAPENTIN 100 MG CAP PO SCH (09:00)
[2017-12-22] MEDS ORDERED: fentaNYL 0.05 MG/ML VIAL ONE (09:03)
[2017-12-22] MEDS ORDERED: MIDAZOLAM 2 MG/2 ML VIAL ONE (09:03)
[2017-12-22] MEDS ORDERED: PROPOFOL 200 MG/20 ML VIAL IV ONE (09:10)
[2017-12-22 10:25] VITALS: BP 95/66
--- NOTE | 2017-12-22 10:25 | NUR ---
PATIENT BACK FROM SURGERY. PATIENT DROWSY BUT AROUSABLE. NO S/S OF DISTRESS NOTED. TEMP 97.8 BP 95/66 HR 104 O2 SAT 97%
[2017-12-22] MEDS: NACL 0.9% 1,000 ML IV SCH ×2 (10:40→19:24)
[2017-12-22 10:45] VITALS: BP 118/75
--- NOTE | 2017-12-22 12:21 | NUR ---
12/22/17 RD INITIAL ASSESSMENT COMPLETED PLEASE REFER TO NUTRITION ASSESSMENT UNDER CARE ACTIVITY FOR ESTIMATED NUTRITIONAL NEEDS. 1. CONTINUE NPO DIET MEDICALLY ADVISED 2. WHEN MEDICALLY CLEARED RECOMMEND CCHO 60, CARDIAC DIET. 3. RECOMMEND GLUCERNA BID 4. RD TO FOLLOW-UP 3-5 DAYS, MODERATE RISK DONOVAN POON RD
[2017-12-22] MEDS ORDERED: NACL 0.9% IV SCH (13:00)
[2017-12-22] MEDS ORDERED: ACYCLOVIR IV SCH (13:00)
--- NOTE | 2017-12-22 13:15 | NUR ---
PT IS TOO DROWSY TO TAKE SCHEDULED NEURONTIN AT THIS TIME. WILL CONTINUE TO MONITOR.
[2017-12-22 16:00] VITALS: BP 158/86
[2017-12-22] MEDS: metFORMIN 500 MG TAB PO SCH (16:19)
--- NOTE | 2017-12-22 19:20 | NUR ---
PT REPORT GIVEN AT BEDSIDE TO AERONAUTICAL ENGINEERING TECHNOLOGIST NURSE. PT ENDORSED IN STABLE CONDITION, NO S/S OF DISTRESS.
--- NOTE | 2017-12-22 19:21 | NUR ---
RECD. RESTING IN BED COMFORTABLY SLEEPING, RESPIRATION EVEN AND UNLABORED. IV OF NS AT 20 ML/HR INFUSING, RIGHT AC G22. INCISION IN THE RIGHT POSTERIOR FLANK, S/P I & D TODAY, COVERED WITH DRESSING DRY AND INTACT.PLAN OF CARE FOR THE SHIFT DISCUSSED. DROWSY, WENT BACK TO SLEEP. SAFETY MEASURES ENFORCED, BED ON LOW POSITION, CALL LIGHT IN REACH. NO APPEARANCE OF PAIN NOTED, 0/10.
--- NOTE | 2017-12-22 20:00 | NUR ---
Patient's Plan of Care was discussed and reviewed with DRUM LOADER AND UNLOADER: ENRIQUE WALDROP
--- NOTE | 2017-12-22 21:14 | NUR ---
DR. RAMOS CAME, DISCONTINUED ZOVIRAX AND ZOSYN. PATIENT NO LONGER ON AIRBORNE PRECAUTION.
[2017-12-22] MEDS: VANCOMYCIN 1GM/DEXT 5% PREMIX 200 ML IV SCH (21:20)
[2017-12-22] MEDS: HYDROcodone/APAP 5/325 MG 1 TAB TAB PO PRN (21:35)
--- NOTE | 2017-12-22 21:44 | NUR ---
DUE PO MEDICATIONS GIVEN. ATE 100% OF SNACK.
--- NOTE | 2017-12-22 22:35 | NUR ---
URINE FOR CULTURE SENT TO LAB.
[2017-12-23] VITALS: BP 106/61
--- NOTE | 2017-12-23 | NUR ---
SLEEPING COMFORTABLY IN BED.
--- NOTE | 2017-12-23 01:00 | NUR ---
VOIDED ON THE FLOOR. ASSISTED TO CLEANED SELF. BEDDINGS CHANGED BY MENTAL HEALTH CONSULTANT. BACK TO BED AND WENT TO SLEEP AGAIN.
--- NOTE | 2017-12-23 01:30 | NUR ---
REFUSED TO BE CONNECTED TO HER IV, STATED IT IS DIFFICULT FOR HER TO GET OUT OF BED.
--- NOTE | 2017-12-23 04:00 | NUR ---
SHOUTS OCCASIONALLY TO CALL ATTENTION OF NURSES SINCE THE BEGINNING OF SHIFT. IRRITABLE, NEEDY.
[2017-12-23] MEDS: NACL 0.9% 1,000 ML IV SCH ×2 (05:24→15:24)
[2017-12-23] MEDS: HYDROcodone/APAP 5/325 MG 1 TAB TAB PO PRN ×4 (05:58→20:05)
[2017-12-23] MEDS: BLOOD GLUCOSE MONITORING 1 DEV DEV FS SCH ×4 (06:07→20:21)
[2017-12-23] MEDS: INSULIN LISPRO SLIDING SCALE 100 UNITS/ML VIAL SUBQ PRN ×4 (06:09→20:20)
--- NOTE | 2017-12-23 06:50 | NUR ---
CONDITION REMAIN STABLE. WILL ENDORSE TO AM NURSE FOR CONTINUITY OF CARE.
--- NOTE | 2017-12-23 07:30 | NUR ---
ENDORSED TO PRATIBHA PACHECO FOR CONTINUITY OF CARE.
--- NOTE | 2017-12-23 07:30 | NUR ---
RECEIVED PATIENT REPORT AT BEDSIDE. PATIENT ASLEEP BUT AROUSABLE. NO S/S OF DISTRESS. NO IV LINE IN PLACE. BED LOWERED WITH CALL LIGHT WITHIN REACH. WILL CONTINUE TO MONITOR
[2017-12-23 08:00] VITALS: BP 129/77
--- NOTE | 2017-12-23 09:00 | NUR ---
SCHEDULED MEDS ADMINISTERED. WILL CONTINUE TO MONITOR
[2017-12-23] MEDS: metFORMIN 500 MG TAB PO SCH ×2 (09:26→18:01)
[2017-12-23] MEDS: GABAPENTIN 300 MG CAP PO SCH (09:26)
--- NOTE | 2017-12-23 10:30 | NUR ---
WOUND DRESSING CHANGED WITH WOUND CARE NURSE. PICTURE TAKEN AND FILED IN THE CHART
--- NOTE | 2017-12-23 11:21 | NUR ---
Wound care evaluation note: Reason for evaluation: S/P I&D right posterior lower back. Skin assessment done with this 52 year old female admitted to [facility] with initial dx. of right flank pain x 1 week. past medical Hx: Ovarian cancer, substance abuse, Type II DM, hypertension, stroke 2 years ago, asthma cardiomyopathy, bipolar disorder, fibromyalgia, and asthma. All above information obtained from admission H&P. PT. is resting in bed able to answer question but appears sleeping, follow directions to turn and reposition and state that she will need to talk to social service for discharge wound care. Primary RN and CN made aware. -Right posterior lower back. surgical wound 2x7x3 cm, wound bed is clean and matthew-wound skin intact with few dry fungal liked rashes. small amount sanguineous drainage, no odor. pain 3/10 bearable. Recommendations: -Cleanse right posterior lower back surgical wound with NS. pat dry, pack wound with adaptic dressing and cover with dry dressing qd and PRN if soiling. -Keep area dry and clean at all times. Addendum: 12/23/17 at 1257 by María Eduardo RN (Grace) PLEASE FOLLOW UP WITH SURGEON 7-10 DAYS AFTER DISCHARGE. PLEASE DISCHARGE PT. WITH WOUND CARE SUPPLIES X14 DAYS ALL ABOVE RECOMMENDATIONS DISCUSSED WITH DR. GREEN, ALSO DR. GREEN MADE AWARE OF PT. LIVING STATUS AND PT. REQUIRE ASSISTANCE FOR WOUND CARE.
[2017-12-23] MEDS ORDERED: INSULIN LANTUS 100 UNITS/ML 10 ML VIAL SUBQ SCH (12:30)
[2017-12-23] MEDS ORDERED: NICOTINE TRANSD SYS 14 MG/24 HR PATCH TD SCH (13:00)
[2017-12-23] MEDS: MAG SULF 2000 MG/WATER PREMIX 100 ML IV SCH ×2 (15:44→17:57)
[2017-12-23 15:52] VITALS: BP 97/61
--- NOTE | 2017-12-23 18:42 | NUR ---
Rejoiner Note: I was informed by patient's nurse Perfecto patient wanted to speak with a Box Chipper. I met with patient at bedside. She stated [facility] is assisting her with locating temporary housing, stated this process might a couple of weeks. She stated she is currently homeless and requested assistance with temporary housing. She receives $220 from [employer], reported this is her only monthly income. I informed her with that unfortunately I could not assist her with room and boards placement since their cost is more than $220. I offered to contact [facility] ([email or web address]) and inquire if they can accept her. [facility] provides long term to individuals who are homeless and need alcohol/substance abuse treatment (they accept donation funds, but are not required). I also asked her if she would be open to going to a homeless long term. She became agitated and stated she wanted me to find her another type of housing or alcohol/substance detox and when I attempted to ask her what type of housing or alcohol/substance she was referring to she became more agitated, she accepted a list of alcohol/substance abuse treatment programs, and told me to leave room.
--- NOTE | 2017-12-23 19:30 | NUR ---
PATIENT REPORT GIVEN AT BEDSIDE. PATIENT ENDORSED IN STABLE CONDITION
--- NOTE | 2017-12-23 19:31 | NUR ---
RECEIVED BEDSIDE REPORT FROM DAY SHIFT NURSE JUNIOR RN, PT STABLE, NO DISTRESS NOTED, IV TO L WRIST 24G PATENT, INTACT, INFUSING NS @ 100ML/HR, INFUSING WELL, PT ON ROOM AIR, NO SOB, PT STATED HAVING PAIN 08/28, WILL MEDICATE, INITIAL ASSESSMENT DONE, ALL SAFETY PRECAUTION MET, CALL LIGHT WITHIN REACH, WILL CONTINUE TO MONITOR.
[2017-12-23] MEDS: ZOLPIDEM 5 MG TAB PO PRN (20:06)
--- NOTE | 2017-12-23 20:20 | NUR ---
CHECKED PT BLOOD SUGAR 213, INSULIN PER PROTOCOL GIVEN, PT STATED HAVING PAIN 6/10, PAIN MEDICATION ADMINISTERED, PT ALSO STATED WANTING TO HAVE MEDICATION FOR SLEEPING, DEVONIEN PER DR ORDER GIVEN, PT TOLERATED WELL, CALL LIGHT WITHIN REACH, WILL CONTINUE TO MONITOR.
[2017-12-23 20:30] LABS: BASOPHILS % (AUTO) 0.1 % (0.0-2.0); EOSINOPHILS # (AUTO) 0.2 K/uL (0-0.4); EOSINOPHILS % (AUTO) 1.9 % (0.0-4.0); HEMATOCRIT 33.2 % (36-48); HEMOGLOBIN 10.6 g/dL (12.0-16.0); LYMPHOCYTES # (AUTO) 2.2 K/uL (2.5-16.5); LYMPHOCYTES % (AUTO) 22.8 % (20.5-51.1); MEAN CORPUSCULAR HEMOGLOBIN 26 pg (27-31); MEAN CORPUSCULAR HGB CONC 32 g/dL (33-37); MEAN CORPUSCULAR VOLUME 80.3 fL (80-94); MONOCYTES # (AUTO) 0.6 K/uL (0.8-1.0); MONOCYTES % (AUTO) 6.7 % (1.7-9.3); NEUTROPHILS # (AUTO) 6.6 K/uL (1.8-7.7); NEUTROPHILS % (AUTO) 68.5 % (42.2-75.2); PLATELET COUNT (AUTO) 227 K/uL (140-450); RED BLOOD CELL COUNT(AUTO) 4.14 MIL/uL (4.20-5.40); RED CELL DISTRIBUTION WIDTH 16.3 % (11.6-13.7); WHITE BLOOD COUNT (AUTO) 9.6 K/uL (4.8-10.8)
[2017-12-23 20:46] LABS: CARBON DIOXIDE 30.3 mmol/L (21-32); CREATININE 0.8 mg/dL (0.6-1.3); POTASSIUM 3.3 mmol/L (3.5-5.1)
--- NOTE | 2017-12-23 21:00 | NUR ---
NOTIFIED DR. GUTIERREZ REGARDING PT C/O YEAST INFECTION ON THE VAGINA, REDNESS NOTED ON THE AREA, AND POTASSIUM OF 3.3 STATED UNDERSTANDING AND WILL ORDER MEDICATION, WILL CONTINUE WITH ORDERS.
[2017-12-23] MEDS: VANCOMYCIN 1GM/DEXT 5% PREMIX 200 ML IV SCH (21:20)
--- NOTE | 2017-12-23 21:20 | NUR ---
DUE MEDICATION ADMINISTERED, PT TOLERATED WELL, NO DISTRESS NOTED, CALL LIGHT WITHIN REACH,WILL CONTINUE TO MONITOR.
[2017-12-23] MEDS ORDERED: POTASSIUM CHLORIDE 10 MEQ TABER PO SCH (21:30)
[2017-12-24] VITALS: BP 91/63
--- NOTE | 2017-12-24 00:10 | NUR ---
CHECKED ON PT, PT SLEEPING, NO DISTRESS NOTED, V/S TAKEN, CALL LIGHT WITHIN REACH, WILL CONTINUE TO MONITOR.
[2017-12-24] MEDS: NACL 0.9% 1,000 ML IV SCH ×3 (01:24→21:24)
--- NOTE | 2017-12-24 03:10 | NUR ---
CHECKED ON PT, PT SLEEPING, NO DISTRESS NOTED, CALL LIGHT WITHIN REACH, WILL CONTINUE TO MONITOR.
[2017-12-24] MEDS: HYDROcodone/APAP 5/325 MG 1 TAB TAB PO PRN ×3 (06:05→17:20)
--- NOTE | 2017-12-24 06:05 | NUR ---
PT C/O PAIN, PAIN MEDICATION PER MD ORDER GIVEN, PT TOLERATED WELL, NO DISTRESS NOTED, CALL LIGHT WITHIN REACH, WILL CONTINUE TO MONITOR.
[2017-12-24] MEDS: BLOOD GLUCOSE MONITORING 1 DEV DEV FS SCH ×4 (06:17→20:31)
[2017-12-24] MEDS: INSULIN LISPRO SLIDING SCALE 100 UNITS/ML VIAL SUBQ PRN ×4 (06:19→21:11)
--- NOTE | 2017-12-24 06:19 | NUR ---
NOTED SMALL BLISTER/SKIN TEAR TO THE R CHEST UNDER THE BREAST FOLD, PICTURE TAKEN, PT STATED IT HAS BEEN THERE SINCE 2 WEEKS AGO. CHECKED ON PT BLOOD SUGAR 269, INSULIN PER PROTOCOL GIVEN, PT TOLERATED WELL, PT REFUSED MORNING BLOOD DRAW. CALL LIGHT WITHIN REACH, WILL CONTINUE TO MONITOR.
--- NOTE | 2017-12-24 07:30 | NUR ---
ENDORSED PT TO DAY SHIFT NURSE GRETA MCKINNON, PT STABLE, NO DISTRESS NOTED, CALL LIGHT WITHIN REACH
--- NOTE | 2017-12-24 07:34 | NUR ---
RECEIVED REPORT FROM HOUSE FELLOW NURSE, PT IS SLEEPING IN BED BUT EASILY AWAKEN, PT IS AAOX4, AMBULATORY, IV IS ON THE LEFT WRIST, PATENT, INTACT, FLUSHING WELL, PT IS ON ROOM AIR, PT IS S/P I & D OF RIGHT FLANK ON 12/22/17, DRESSING IS DRY AND INTACT AT THIS TIME, NO S/S OF RESPIRATORY DISTRESS OR DISCOMFORT NOTED, DISCUSSED PLAN OF CARE WITH PT, PT VERBALIZED UNDERSTANDING, SAFETY/FALL PRECAUTIONS ARE IN PLACE, CALL LIGHT IS WITHIN REACH, WILL CONTINUE TO MONITOR.
[2017-12-24 08:00] VITALS: BP 96/64
[2017-12-24] MEDS: NYSTATIN POW 100 MU/GM 15 GM BTL TP SCH ×2 (09:00→21:00)
--- NOTE | 2017-12-24 09:00 | NUR ---
PT DID NOT WANT BREAKFAST TRAY. PT REQUESTED CEREAL AND TOAST. CALLED DIETARY AND LEFT A MESSAGE.
[2017-12-24] MEDS: metFORMIN 500 MG TAB PO SCH ×3 (09:03→17:19)
[2017-12-24] MEDS: INSULIN LANTUS 100 UNITS/ML 10 ML VIAL SUBQ SCH (09:09)
--- NOTE | 2017-12-24 09:40 | NUR ---
PT SLEEPING IN BED AT THIS TIME, NO S/S OF DISCOMFORT NOTED, CALL LIGHT WITHIN REACH.
[2017-12-24 10:13] LABS: BASOPHILS % (AUTO) 0.2 % (0.0-2.0); EOSINOPHILS # (AUTO) 0.1 K/uL (0-0.4); EOSINOPHILS % (AUTO) 1.6 % (0.0-4.0); HEMATOCRIT 33.4 % (36-48); HEMOGLOBIN 10.6 g/dL (12.0-16.0); LYMPHOCYTES # (AUTO) 2.2 K/uL (2.5-16.5); LYMPHOCYTES % (AUTO) 24.7 % (20.5-51.1); MEAN CORPUSCULAR HEMOGLOBIN 25 pg (27-31); MEAN CORPUSCULAR HGB CONC 32 g/dL (33-37); MEAN CORPUSCULAR VOLUME 79.9 fL (80-94); MONOCYTES # (AUTO) 0.5 K/uL (0.8-1.0); MONOCYTES % (AUTO) 5.7 % (1.7-9.3); NEUTROPHILS % (AUTO) 67.8 % (42.2-75.2); PLATELET COUNT (AUTO) 246 K/uL (140-450); RED BLOOD CELL COUNT(AUTO) 4.18 MIL/uL (4.20-5.40); RED CELL DISTRIBUTION WIDTH 16.3 % (11.6-13.7); WHITE BLOOD COUNT (AUTO) 8.8 K/uL (4.8-10.8)
[2017-12-24 10:40] LABS: ANION GAP 7.9 (8-16); CREATININE 0.6 mg/dL (0.6-1.3); POTASSIUM 3.9 mmol/L (3.5-5.1)
[2017-12-24 10:51] LABS: MAGNESIUM 1.7 mg/dL (1.8-2.4); PHOSPHORUS 3.2 mg/dL (2.5-4.9)
--- NOTE | 2017-12-24 10:56 | NUR ---
PT IS SLEEPING IN BED, NO S/S OF DISTRESS OR DISCOMFORT NOTED, CALL LIGHT IS WITHIN REACH, WILL CONTINUE TO MONITOR.
[2017-12-24] MEDS ORDERED: VANCOMYCIN HCL 750 MG in DEXTROSE 5% 250 ML IV SCH (12:00)
[2017-12-24] MEDS ORDERED: MAGNESIUM OXIDE 400 MG TAB PO SCH (12:30)
--- NOTE | 2017-12-24 12:36 | NUR ---
PT LAYING IN BED, SCREAMING, "SOMEONE NEEDS TO COMB MY FUCKIN, THIS IS NEGLECT!" PT PULLED OUT HER IV, SHE HAS NO IV ACCESS AT THIS TIME. WILL ATTEMPT TO START A NEW IV.
[2017-12-24 16:00] VITALS: BP 126/96
--- NOTE | 2017-12-24 16:00 | NUR ---
PT RESTING IN BED, NO S/S OF RESPIRATORY DISTRESS OR DISCOMFORT NOTED. NEW IV STARTED ON LEFT WRIST, #24 G.
[2017-12-24] MEDS: NAFCILLIN 1,000 MG in DEXTROSE 5% 50 ML IV SCH (17:18)
--- NOTE | 2017-12-24 19:26 | NUR ---
ENDORSED PT TO FRONT DESK ATTENDANT NURSE FOR CONTINUITY OF CARE. PT STABLE AT THIS TIME.
--- NOTE | 2017-12-24 19:32 | NUR ---
RECEIVED REPORT AT BEDSIDE FORM GRETA MCKINNON FOR CONTINUITY OF CARE, PT IN STABLE CONDITION.
[2017-12-24] MEDS: MORPHINE SULFATE 2 MG/ML SYR IVP PRN (20:15)
--- NOTE | 2017-12-24 20:39 | NUR ---
PT SITTING AT SIDE OF BED WITH C/O OF 9/10 RIGHT FLANK PAIN. DRESSING FOR ABSCESS DISPLAYED MODERATE SEROSANGUINEOUS DRESSING AND NURSE ASKED PT IF SHE WOULD LET PRIMARY NURSE CHANGE THE DRESSING , SHE SAID THAT SHE DID NOT WANT TO HAVE DRESSING REPACKED BUT SHE WOULD AGREE TO RE-ENFORCING DRESSING DUE TO THE DRESSING BEING SOILED. PT RECEIVED IVP MORPHINE AND IS NOW REQUESTING AMBIEN. PT F/S 184 OTHER V/S T 97.9 P 99 R 20 B/P 121/68 02 97% ON ROOM AIR. PT SAID THAT SHE WILL ALLOW DRESSING TO BE REINFORCED /CHANGED WHEN SHE RECEIVES HER AMBIEN.
[2017-12-24] MEDS: ZOLPIDEM 5 MG TAB PO PRN (21:14)
--- NOTE | 2017-12-24 21:19 | NUR ---
GAVE PT AMBIEN REQUESTED. PT ALLOWED PRIMARY NURSE TO CHANGE THE DRESSING BUT NOT REPACK THE WOUND. PRIMARY NURSE EXPLAINED RISKS AND BENEFITS OF HAVING DRESSING COMPLETELY CHANGED. PT VERBALIZED UNDERSTANDING BUT SAID THAT IT HURTS TOO MUCH.
--- NOTE | 2017-12-24 23:00 | NUR ---
POSITIVE EFFECT OF SONJA NOTED, PT SLEEPING SOUNDLY.
[2017-12-25] VITALS: BP 110/60
[2017-12-25] MEDS: NAFCILLIN 1,000 MG in DEXTROSE 5% 50 ML IV SCH ×3 (00:23→12:00)
--- NOTE | 2017-12-25 01:00 | NUR ---
PT IN BED ASLEEP BUT AROUSABLE TO NAME AND LIGHT TOUCH. MIDNIGHT IV ABT HUNG ORDERED. PT IV SITE INTACT AND FLUSHED PATENT. PT UPSET THAT SHE WAS AWOKEN AND CURSED AT PRIMARY NURSE SAYING "FUCK YOU AGAIN". PT REMINDED THAT IV MEDICATION HAD TO HUNG AT THIS TIME AND V/S ALSO NEED TO BE TAKEN AT THIS TIME. PT SAID NOTHING.
--- NOTE | 2017-12-25 03:30 | NUR ---
PT WOKE UP AND CALLED FOR HELP TO GO TO [facility]. PT ALSO C/O OF BEING HUNGRY AND HAVING 9/10 FLANK PAIN. PT GIVEN MORPHINE IVP FOR 9/10 PAIN, SHE ATE A SMALL SNACK OF MILK AND UNIQUE CRACKERS, THEN WENT BACK TO SLEEP. PT IN LOW BED AND ALL FALLS PRECAUTIONS IN PLACE WELL CALL STEWART IN REACH.
[2017-12-25] MEDS: MORPHINE SULFATE 2 MG/ML SYR IVP PRN ×2 (04:06→09:23)
[2017-12-25] MEDS: BLOOD GLUCOSE MONITORING 1 DEV DEV FS SCH ×4 (06:09→20:32)
--- NOTE | 2017-12-25 06:10 | NUR ---
PT REFUSED BLOOD DRAWS AND FINGERSTICK SAYING "NO ONE IS GOING TO POKE ME BEFORE BREAKFAST!" PT WAS EXPLAINED THE RISK AND BENEFITS AND STATED "ITS MY CHOICE". PRIMARY NURSE AGREED THAT IT IS YOUR PT RIGHTS TO REFUSE ANY TREATMENT OR MEDICATIONS, HOWEVER EXPLAINED THE RISKS AND BENEFITS OF FOLLOWING HOSPITAL PROTOCOL, PT CONTINUED TO REFUSE BLOOD DRAW AND F/S.
--- NOTE | 2017-12-25 07:12 | NUR ---
ENDORSED CARE TO SITAL RN DAYSHIFT NURSE AT BEDSIDE FOR CONTINUITY OF CARE. ENDORSED TP DAY NURSE THAT PT REFUSE BLOOD DRAW AND F/S UNTIL 8AM AFTER HER BREAKFAST. PT CURRENTLY ASLEEP AND IN STABLE CONDITION.
--- NOTE | 2017-12-25 07:13 | NUR ---
RECEIVED REPORT FROM PM NURSE AT BEDSIDE. PT SLEEPING COMFORTABLY IN HER BED. PER PM NURSE, PT REFUSED AM BLOOD DRAW AND BLOOD SUGAR TEST. HAS IV ACCESS ON LFT FA, 22 G. IVF INFUSING WELL. PT HAS POST I&D SURGICAL WOUND O HER RT FLANK. PT ON ABX TREATMENT. NO SIGN OF DISTRESS NOTED. UPDATED BOARD. PLACED CALL LIGHT WITHIN PT REACH. BED IN LOWER POSITION. WILL CONTINUE TO MONITOR PT.
[2017-12-25] MEDS: NACL 0.9% 1,000 ML IV SCH ×2 (07:24→17:24)
[2017-12-25 08:00] VITALS: BP 139/98
[2017-12-25] MEDS ORDERED: metFORMIN 850 MG TAB PO SCH (09:01)
[2017-12-25] MEDS: NYSTATIN POW 100 MU/GM 15 GM BTL TP SCH ×2 (09:22→20:30)
[2017-12-25] MEDS: INSULIN LANTUS 100 UNITS/ML 10 ML VIAL SUBQ SCH (09:22)
--- NOTE | 2017-12-25 09:25 | NUR ---
ADMINISTERED MEDS TO PT ORDERED. INFORMED PT TO APPLY APPLY NYSTATIN POWDER AROUND HER VAGINAL REGION. PT STATED TO APPLY HERSELF. PLACED HER MEDS AT HER BEDSIDE. PT STATES TO APPLY NYSTATIN POWDER HERSELF. WILL CONTINUE TO MONITOR PT.
[2017-12-25] MEDS ORDERED: CLIN300C2 PO (09:50)
--- NOTE | 2017-12-25 10:15 | NUR ---
CHECKED ON PT . SLEEPING ON HER BED. INFORMED THAT SHE IS GOING TO BE DISCHARGED TODAY. ASKED HER IF SHE WANTED CALL ANY FROM FAMILY TO PICK HER UP. STUDENT NURSE HELPED HER TO MAKE CALL TO HER MOTHER. NO ANSWER. PT STATES SHE LIVES IN [place]. INFORMED HER THAT RESOURCE PACKET WILL PROVIDED. PT TOOK OFF HER IV SITE BY HERSELF. PUT BANDAGE ON HER TO PREVENT BLEEDING. CHANGED HER WOUND DRESSING AND APPLIED NEW ONE. INFORMED HER THAT WILL WORK ON HER DC PAPER. VERBALIZED UNDERSTANDING.
--- NOTE | 2017-12-25 11:00 | NUR ---
PT DC PAPER READY. PT ASKING TO TALK TO SS . STATES SHE HAS NO PLACE TO GO. GAVE HER THE RESOURCE PACKAGE, INFORMED HER THAT SHE CAN CALL THE NUMBER THAT ARE IN RESOURCE PACKAGE, AVAILABLE TO HELP HER WITH HER CORRECTION. STATES SHE IS NOT READY TO GO SHE WANTS TO TALK TO SS . INFORMED HER THEY ARE NOT AVAILABLE, CHARGE NURSE AWARE OF IT. PT ALREADY SIGNED THE DC PAPER, AND ALSO THE RESOURCE WAIVER FORM. HELPED HER CALL HER FAMILY AGAIN, NO CALL RECEIVED. PT STATES SHE IS NOT READY TO GO. INFORMED HER THAT MD HAS MEDICALLY CLEARED HER TO DISCHARGED. NOTIFIED MD. TALKING WITH PT. WILL CONTINUE TO MONITOR PT.
[2017-12-25] MEDS: metFORMIN 850 MG TAB PO SCH ×2 (12:00→17:00)
--- NOTE | 2017-12-25 12:45 | NUR ---
CHECKED ON PT. PT LYING ON HER BED. INFORMED HER THAT INSULIN IS DUE BECAUSE HER BLOOD SUGAR IS HIGH. SHE REFUSED ALL HER MEDS AND STATES THAT SHE IS SUICIDAL , NOT FEELING LIKE TO LIVE ANYMORE. CHARGE NURSE AWARE. INFORMED HER THAT SHE WILL BE SEEN BY PSYCH CONSULT. VERBALIZED UNDERSTANDING.PT WENT BACK TO SLEEP. WILL CONTINUE TO MONITOR PT.
--- NOTE | 2017-12-25 15:15 | NUR ---
DISCUSSED POC WITH MD REGARDING PT. STATES HAS PUT ORDER FOR PSYCH CONSULT PT STATED OF HAVING SUICIDAL IDEATION WITH MD. PER , PT CAN REMAIN ON SAME ABX. INFORMED MD THAT PT REFUSED ALL HER MEDS THIS NOON AND PULLED HER IV HERSELF. NO IV ACCESS SITE ON PT. MD TO CHANGE THE ABX TO PO FORM.WILL CONTINUE TO MONITOR PT.
[2017-12-25 16:00] VITALS: BP 153/70
--- NOTE | 2017-12-25 17:00 | NUR ---
CHECKED ON PT , WAS LYING ON HER BED. INFORMED HER OF INSULIN COVERAGE FOR BS 169 AND HAS METFORMIN DUE TO BE ADMINISTERED. PT EXPRESSING FELLING OF COMMITTING SUICIDE. ASKED HER SHY SHE WANTS TO COMMIT SUICIDE, STATES THAT SHE DO NOT WANT TO LIVE ANYMORE. CHARGE NURSE MADE AWARE, CHANGED PT ROOM, PUT HER NEAR NURSING STATION. REMOVED ALL IV PUMPS FROM PTS ROOM. CHARGE NURSE CALLED SECURITY, KEPT ALL HER BELONGINGS TO SECURITY. PT HAS CONSULT WITH DR DOE FOR PSYCH CONSULT. WILL CONTINUE TO MONITOR PT AND CLOSELY MONITOR HER FOR SI. PT PLACED NEAR NURSING STATION AT 1655 IN ROOM 110 B.
--- NOTE | 2017-12-25 17:30 | NUR ---
BELONGINGS WAS CHECKED AND SECURITY FOUND ILLEGAL MEDICATION, NOTIFY ANTIQUE COLLECTOR REMI, POLICE WAS CALLED IN.
[2017-12-25] MEDS: CLINDAMYCIN 150 MG CAP PO SCH ×2 (18:00→23:54)
--- NOTE | 2017-12-25 18:13 | NUR ---
PATIENT MOTHER LEÓN RETURN MY CALL AND SHE SAID SHE WILL NOT TAKE HER DAUGHTER HOME. SHE IS IN A WHEELCHAIR AND SHE CANNOT TAKE CARE OF HER.
--- NOTE | 2017-12-25 18:24 | NUR ---
J CARLOS SONG HERE AND TALKING TO THE PATIENT. WILL CONTINUE TO MONITOR.
--- NOTE | 2017-12-25 18:46 | NUR ---
NOTIFIED THAT PT WAS PUT O 5150 HOLD BY POLICE. CHARGE NURSE AWARE.
--- NOTE | 2017-12-25 19:20 | NUR ---
ENDORSED PT TO PM NURSE AT BEDSIDE FOR CONTINUITY OF CARE. PT IN STABLE CONDITION.
--- NOTE | 2017-12-25 19:22 | NUR ---
RECEIVED REPORT FROM DAY SHIFT NURSE. PT LYING IN BED, AWAKE. NO SUICIDAL IDEATION AT THIS TIME. NO C/O PAIN. NO RESP DISTRESS NOTED. NO IV LINE. 1:1 SITTER.
[2017-12-25] MEDS: INSULIN LISPRO SLIDING SCALE 100 UNITS/ML VIAL SUBQ PRN (20:29)
--- NOTE | 2017-12-25 21:00 | NUR ---
BLOOD SUGAR CHECKED 201. 4 UNITS OF HUMALOG GIVEN SUBQ.
--- NOTE | 2017-12-26 | NUR ---
PT REFUSED VS CHECK. PT STATED " I DON'T NEED IT".
--- NOTE | 2017-12-26 02:50 | NUR ---
PT SLEEPING BUT EASILY AROUSABLE. NO S/S OF RESP DISTRESS.
[2017-12-26] MEDS: NACL 0.9% 1,000 ML IV SCH ×2 (03:10→13:10)
--- NOTE | 2017-12-26 05:10 | NUR ---
PT RESTING IN BED WITH EYES CLOSED. NO S/S OF PAIN. RESP EVEN AND UNLABORED. 1:[address]
[2017-12-26] MEDS: CLINDAMYCIN 150 MG CAP PO SCH ×3 (05:18→12:30)
--- NOTE | 2017-12-26 06:00 | NUR ---
PT REFUSED CLEOCIN 300 MG AND REFUSED BLOOD SUGAR CHECK. PT STATED " I WANT TO SLEEP". EXPLAINED TO PT THE RISK AND BENEFITS. PT STILL REFUSED.
[2017-12-26] MEDS: BLOOD GLUCOSE MONITORING 1 DEV DEV FS SCH ×2 (06:57→11:30)
--- NOTE | 2017-12-26 07:20 | NUR ---
ENDORSED PT TO DAY SHIFT NURSE. PT IN STABLE CONDITION.
--- NOTE | 2017-12-26 07:21 | NUR ---
PATIENT LYING DOWN IN BED SLEEPING, AROUSABLE BY VOICE. NO DISTRESS NOTED. DENIES ANY PAIN AT THIS TIME. AAOX3, CALM, COOPERATIVE, SKIN COLOR APPROPRIATE TO ETHNICITY, WARM TO TOUCH. REPORTS HAVING THOUGHTS OF HARMING SELF THROUGH OVERDOSE ON MEDICATIONS AT THIS TIME. NO IV SITE PATIENT REFUSED. ABDOMEN SOFT, NON-DISTENDED. RASH NOTED ON RIGHT UNDER BREAST AND PERINEAL AREA. HAS RIGHT FLANK WOUND S/P I&D, DRESSING DRY AND INTACT. LUNGS CTA ON ALL LOBES. REVIEWED PLAN OF CARE WITH PATIENT. PATIENT VERBALIZED UNDERSTANDING. SAFETY MEASURES IN PLACE, SITTER AT BEDSIDE. WILL CONTINUE TO MONITOR.
[2017-12-26 08:00] VITALS: BP 145/85
[2017-12-26] MEDS: metFORMIN 850 MG TAB PO SCH ×2 (09:10→12:30)
[2017-12-26] MEDS: NYSTATIN POW 100 MU/GM 15 GM BTL TP SCH (09:10)
[2017-12-26] MEDS: INSULIN LANTUS 100 UNITS/ML 10 ML VIAL SUBQ SCH (09:15)
--- NOTE | 2017-12-26 09:17 | NUR ---
PATIENT LYING DOWN IN BED SLEEPING, AROUSABLE BY VOICE. NO DISTRESS NOTED. SCHEDULED MEDICATIONS DUE GIVEN. SITTER AT BEDSIDE. WILL CONTINUE TO MONITOR.
[2017-12-26] MEDS ORDERED: FLUCONAZOLE 200 MG/NS PREMIX 100 ML IV SCH (11:00)
[2017-12-26] MEDS ORDERED: FLUCONAZOLE 100 MG TAB PO SCH (11:30)
[2017-12-26] MEDS: INSULIN LISPRO SLIDING SCALE 100 UNITS/ML VIAL SUBQ PRN (12:32)
--- NOTE | 2017-12-26 12:35 | NUR ---
PATIENT LYING DOWN IN BED COMFORTABLY. NO DISTRESS NOTED. DENIES ANY PAIN. SCHEDULED MEDICATIONS DUE GIVEN. WILL CONTINUE TO MONITOR.
--- NOTE | 2017-12-26 14:15 | NUR ---
PATIENT LYING DOWN IN BED SLEEPING, AROUSABLE BY VOICE. [address] RUTH. WILL CONTINUE TO MONITOR.
[2017-12-26] MEDS ORDERED: METF850T PO (15:56)
--- NOTE | 2017-12-26 16:00 | NUR ---
DISCHARGE INSTRUCTIONS PROVIDED TO PATIENT IN PREFERRED LANGUAGE OF ANDORRAN, FOLLOW-UP VISIT WITH SURGEON, WOUND CARE MANAGEMENT REGIMEN, DIET REGIMEN, NEW MEDICATION REGIMEN, AND PREVENTION/MANAGEMENT OF WOUND INFECTION. ANSWERED ALL OF PATIENT'S QUESTIONS REGARDING DISCHARGE. PATIENT VERBALIZED COMPLETE UNDERSTANDING. ID BANDS REMOVED. NO IV SITE IN PLACE. PATIENT TO GET DRESSED AND THEN READY TO GO HOME VIA BUS PASS. WILL CONTINUE TO MONITOR.
--- NOTE | 2017-12-26 16:10 | NUR ---
PATIENT ALL DRESSED UP AND READY TO GO. BUS PASS GIVEN PER PATIENT REQUEST. ESCORTED PATIENT DOWN TO LOBBY VIA STEADY AMBULATION. ALL BELONGINGS WITH PATIENT. PATIENT DISCHARGED AT THIS TIME TO FRIEND'S HOME IN STABLE CONDITION.
[2017-12-27] MEDS ORDERED: FLUCONAZOLE 100 MG TAB PO SCH (09:00)
== END 2017-12-26 16:10 | disposition home or self-care (01) | DRG 710 ==
LOC: MED 12:25 → MTU 17:33
PROVIDERS: ADMIT General Practice; ATTEND General Practice
PROC: 0J980ZZ Drainage of Abdomen Subcutaneous Tissue and Fascia, Open Approach (ICD-10-PCS; principal; 2017-12-22 08:45)
DX: A41.9 Sepsis, unspecified organism (principal); E43 Unspecified severe protein-calorie malnutrition; G92 Toxic encephalopathy; E87.8 Other disorders of electrolyte and fluid balance, not elsewhere classified; B02.9 Zoster without complications; E83.42 Hypomagnesemia; E11.65 Type 2 diabetes mellitus with hyperglycemia; E87.1 Hypo-osmolality and hyponatremia; I42.9 Cardiomyopathy, unspecified; I10 Essential (primary) hypertension; M79.7 Fibromyalgia; F31.9 Bipolar disorder, unspecified; L02.211 Cutaneous abscess of abdominal wall; L03.312 Cellulitis of back [any part except buttock and flank]; F19.10 Other psychoactive substance abuse, uncomplicated; F15.99 Other stimulant use, unspecified with unspecified stimulant-induced disorder; E83.51 Hypocalcemia; B95.61 Methicillin susceptible Staphylococcus aureus infection as the cause of diseases classified elsewhere; R45.851 Suicidal ideations; E66.9 Obesity, unspecified; F17.200 Nicotine dependence, unspecified, uncomplicated; J45.909 Unspecified asthma, uncomplicated; Z59.0 Homelessness; Z85.43 Personal history of malignant neoplasm of ovary; Z68.41 Body mass index [BMI] 40.0-44.9, adult; Z86.73 Personal history of transient ischemic attack (TIA), and cerebral infarction without residual deficits; Z56.0 Unemployment, unspecified; Z91.19 Patient's noncompliance with other medical treatment and regimen
CPT/HCPCS: 36415; 71045; 80048; 80053; 80202; 80305; 81003; 81025; 82948; 83036; 83605; 83690; 83735; 83930; 83935; 84100; 84134; 84436; 84443; 84484; 85025; 85610; 85730; 87040; 87070; 87075; 87081; 87086; 87186; 87205; 93005; 93925; 93970; 96361; 96365; 99285; G0480; G0482; J0133; J1815; J2250; J2270; J2543; J2704; J3010; J3370; J3475; J3490; J7030; J7060; Q0092

== ENCOUNTER 2017-12-26 17:04 | Emergency (ER) | payer MEDICAID ==
[~2017-12-26] VITALS: Ht 152.4 cm; Wt 89.1 kg
[~2017-12-26 17:04] MED LIST changes: -ACET-6134 PO; +CLIN300C2 PO; -LEVO500T6 PO; +METF1000 PO; +METF850T PO; -PHEN-1749 PO
--- NOTE | 2017-12-26 17:21 | NUR ---
PT TAKEN TO BED 2 IN WHEELCHAIR AT THIS TIME
[2017-12-26 17:27] VITALS: BP 145/70
--- NOTE | 2017-12-26 17:30 | NUR ---
PT AMBULATED TO RESTROOM WITH STEADY GAIT
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
--- NOTE | 2017-12-26 18:01 | NUR ---
DR MORELOS AT BEDSIDE
[2017-12-26] MEDS ORDERED: NACL 0.9% 1,000 ML IV ONE (18:05)
[2017-12-26 19:31] VITALS: BP 145/70
--- NOTE | 2017-12-26 19:31 | NUR ---
Patient discharged with v/s stable. Bus information provided to Pt. Pt states no need for bus pass assistance at this time. Written and verbal after care instructions given and explained. Patient verbalized understanding. Ambulatory with steady gait. All questions addressed prior to discharge. Advised to follow up with PMD.
== END 2017-12-26 19:31 | disposition home or self-care (01) ==
LOC: MED 17:04
DX: R55 Syncope and collapse (principal); R00.0 Tachycardia, unspecified; I42.9 Cardiomyopathy, unspecified; E11.9 Type 2 diabetes mellitus without complications; F17.200 Nicotine dependence, unspecified, uncomplicated; Z86.73 Personal history of transient ischemic attack (TIA), and cerebral infarction without residual deficits; Z79.84 Long term (current) use of oral hypoglycemic drugs
CPT/HCPCS: 81002; 82948; 93005; 99283; J7030

== ENCOUNTER 2019-01-26 04:15 | Emergency (ER) | payer MEDICAID ==
[~2019-01-26] VITALS: Ht 152.4 cm; Wt 90.7 kg
[~2019-01-26 04:15] MED LIST changes: -METF1000 PO
[2019-01-26 04:18] VITALS: BP 144/88
--- NOTE | 2019-01-26 04:19 | NUR ---
EMS TRANSFERRED PT TO BED 04 VIA GURNEY.
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
--- NOTE | 2019-01-26 05:00 | NUR ---
CALLED TO CT, NO ANSWER. WILL TRY AGAIN.
--- NOTE | 2019-01-26 05:10 | NUR ---
PT TO CT VIA WHEELCHAIR
--- NOTE | 2019-01-26 05:26 | NUR ---
PT RETURNED FROM CT VIA WHEELCHAIR
--- NOTE | 2019-01-26 06:03 | NUR ---
PT RESTING IN BED POSITIONED FOR COMFORT, BED LOCKED AND IN LOW POSITION. VSS. WILL CONTINUE TO MONITOR.
[2019-01-26 06:58] VITALS: BP 135/88
--- NOTE | 2019-01-26 06:59 | NUR ---
Patient discharged with v/s stable. Written and verbal after care instructions given and explained. Patient alert, oriented and verbalized understanding of instructions. Ambulatory with to home. All questions addressed prior to discharge. ID band removed. Patient advised to follow up with PMD. Rx of NAPROSYN 500MG given. Patient educated on indication of medication including possible reaction and side effects. Opportunity to ask questions provided and answered. DISCHARGED BY DR AVERY
--- NOTE | 2019-01-26 07:20 | NUR ---
PT REQUESTED MEN'S CUSTOM HAIR PIECE CONSULTANT. MEN'S CUSTOM HAIR PIECE CONSULTANT PLACED, INFORMED PT TO WAIT IN THE ED LOBBY. PT AAO X4, GCS 15, AMBULATORY WITH STDEAY GAIT. NO ACUTE DISTRESS UPON D/C. MADE AWARE OF PT STATUS
== END 2019-01-26 06:59 | disposition home or self-care (01) ==
LOC: MED 04:15
DX: S09.90XA Unspecified injury of head, initial encounter (principal); J45.909 Unspecified asthma, uncomplicated; I10 Essential (primary) hypertension; E11.9 Type 2 diabetes mellitus without complications; I42.9 Cardiomyopathy, unspecified; Z86.73 Personal history of transient ischemic attack (TIA), and cerebral infarction without residual deficits; Z79.84 Long term (current) use of oral hypoglycemic drugs; Z79.2 Long term (current) use of antibiotics; Y04.2XXA Assault by strike against or bumped into by another person, initial encounter; Y93.89 Activity, other specified; Y92.89 Other specified places as the place of occurrence of the external cause; Y99.8 Other external cause status
CPT/HCPCS: 70450; 99284

== ENCOUNTER 2020-09-21 01:36 | Emergency (ER) | payer MEDICAID ==
[~2020-09-21] VITALS: Ht 157.5 cm; Wt 81.6 kg
[2020-09-21 01:43] VITALS: BP 120/85
--- NOTE | 2020-09-21 01:43 | NUR ---
TO BED AMBULATORY
--- NOTE | 2020-09-21 01:46 | NUR ---
55 Y/O FEMALE PATIENT PRESENTS TO ED WITH CELLULITIS . PT STATES "I HAVE AN ABSCESS IN MY BUTTOCK AND I HAVE A PAIN OF 10/10 THAT DOES NOT GO ANYWHERE." DENIES N/V/D; SKIN HAS A CELLULITIS IN THE RT BUTTOCK, WARM TO TOUCH AND SWOLLEN; AAOX4 WITH EVEN AND STEADY GAIT; LUNGS CLEAR BL; HR EVEN AND REGULAR; PT DENIES ANY FEVER, CP, SOB, OR COUGH AT THIS TIME; PATIENT STATES PAIN OF 10/10 AT THIS TIME; VSS; PATIENT POSITIONED FOR COMFORT; HOB ELEVATED; BEDRAILS UP X2; BED DOWN. ER MD MADE AWARE OF PT STATUS. PMH: HTN, DM, CVA, HLD NKA
[2020-09-21] MEDS ORDERED: LIDOCAINE MPF 1% 10 MG/ML VIAL INJ ONE (02:05)
[2020-09-21] MEDS ORDERED: KETOROLAC 60 MG/2 ML VIAL IM ONE (02:05)
[2020-09-21] MEDS ORDERED: SULF-59 PO (02:29)
[2020-09-21] MEDS ORDERED: IBUP-2213 PO (02:29)
[2020-09-21] MEDS ORDERED: ACET-8386 PO (02:29)
[2020-09-21] MEDS ORDERED: CEPH-588 PO (02:29)
--- NOTE | 2020-09-21 02:35 | NUR ---
Patient discharged with v/s stable. Written and verbal after care instructions given and explained. Patient alert, oriented and verbalized understanding of instructions. Ambulatory with steady gait. All questions addressed prior to discharge. ID band removed. Patient advised to follow up with PMD. Rx of KEFLEX, IBUPROFEN AND BACTRIM given. Patient educated on indication of medication including possible reaction and side effects. Opportunity to ask questions provided and answered.
[2020-09-21 02:42] VITALS: BP 120/85
== END 2020-09-21 02:35 | disposition home or self-care (01) ==
LOC: MED 01:36
DX: L02.31 Cutaneous abscess of buttock (principal); L03.317 Cellulitis of buttock; J45.909 Unspecified asthma, uncomplicated; E11.9 Type 2 diabetes mellitus without complications; I10 Essential (primary) hypertension; Z86.73 Personal history of transient ischemic attack (TIA), and cerebral infarction without residual deficits; Z98.890 Other specified postprocedural states; Z79.84 Long term (current) use of oral hypoglycemic drugs; Z79.899 Other long term (current) drug therapy
CPT/HCPCS: 10060; 96372; 99283; J1885; J2001

== ENCOUNTER 2020-09-21 07:44 | Emergency (ER) | payer MEDICAID ==
[~2020-09-21 07:44] MED LIST changes: +ACET-8386 PO; +CEPH-588 PO; +IBUP-2213 PO; +SULF-59 PO
--- NOTE | 2020-09-21 07:52 | NUR ---
LEFT BEFORE TRIAGE
== END 2020-09-21 07:52 | disposition left against medical advice (07) ==
LOC: MED 07:44
DX: Z53.21 Procedure and treatment not carried out due to patient leaving prior to being seen by health care provider (principal)

== ENCOUNTER 2020-09-26 13:14 | Emergency (ER) | payer MEDICAID ==
[~2020-09-26] VITALS: Ht 154.9 cm; Wt 81.6 kg
[2020-09-26 13:29] VITALS: BP 132/81
--- NOTE | 2020-09-26 13:53 | NUR ---
55 YEAR OLD FEMALE COMES TO ER FOR WOUND RECHECK. PT STATES THAT SHE HAD PACKING AND NEEDS TO HAVE IT REMOVED IN WOUND. PT DENIES PAIN. PT AOX4, BREATHING EVEN AND UNLABORED, SKIN WARM AND DRY. BED IN LOWEST POSITION, LOCKED, BED RAIL UPX1. PMH - DM2, HTN ALLERGIES - NKA
[2020-09-26] MEDS ORDERED: MORPHINE SULFATE 4 MG/ML SYR IM ONE (14:00)
[2020-09-26 14:45] VITALS: BP 119/77
--- NOTE | 2020-09-26 14:45 | NUR ---
Patient given written and verbal discharge instructions and verbalizes understanding. Given copies of tests performed during visit. Patient is awake, alert and oriented. Ambulatory with steady gait. Refuses offer of half-way placement. Given list of available shelters in surrounding areas. Pt given taxi voucher to housing situation.
--- NOTE | 2020-09-26 14:45 | NUR ---
Patient discharged with v/s stable. Written and verbal after care instructions about skin abscess given and explained. Patient verbalized understanding. Ambulatory with steady gait. All questions addressed prior to discharge. Advised to follow up with PMD.
== END 2020-09-26 14:45 | disposition home or self-care (01) ==
LOC: MED 13:14
DX: L02.31 Cutaneous abscess of buttock (principal); J45.909 Unspecified asthma, uncomplicated; I10 Essential (primary) hypertension; E11.9 Type 2 diabetes mellitus without complications; Z79.899 Other long term (current) drug therapy; Z86.73 Personal history of transient ischemic attack (TIA), and cerebral infarction without residual deficits; Z79.84 Long term (current) use of oral hypoglycemic drugs
CPT/HCPCS: 96372; 99283; J2270

== ENCOUNTER 2021-01-09 00:04 | Emergency (ER) | payer MEDICAID ==
[~2021-01-09] VITALS: Ht 152.4 cm; Wt 83.0 kg
--- NOTE | 2021-01-09 00:05 | NUR ---
PT BIBA BLS. TAKEN TO BED 9
[2021-01-09 00:06] VITALS: BP 135/73
[2021-01-09] MEDS ORDERED: KETOROLAC 60 MG/2 ML VIAL IM ONE (00:10)
--- NOTE | 2021-01-09 02:00 | NUR ---
Patient appears to be resting comfortably in bed-- low fowlers with eyes closed. Respirations even and unlabored. No signs of distress noted. Safety measures are in place, and will continue to monitor patient.
--- NOTE | 2021-01-09 03:10 | NUR ---
Dr. De Paz examining patient.
[2021-01-09] MEDS ORDERED: IBUP-2213 PO (03:19)
[2021-01-09] MEDS ORDERED: CEPH-588 PO (03:19)
[2021-01-09] MEDS ORDERED: ACET-8386 PO (03:19)
[2021-01-09 03:37] VITALS: BP 141/78
--- NOTE | 2021-01-09 03:37 | NUR ---
Patient discharged with v/s stable. Written and verbal after care instructions given and explained. Patient alert, oriented and verbalized understanding of instructions. Ambulatory with steady gait. All questions addressed prior to discharge. ID band removed. Patient advised to follow up with PMD. Rx of hydrocodon-acetaminophen 5-325, keflex, and ibuprofen given. Patient educated on indication of medication including possible reaction and side effects. Opportunity to ask questions provided and answered.
== END 2021-01-09 03:37 | disposition home or self-care (01) ==
LOC: MED 00:04
DX: L02.212 Cutaneous abscess of back [any part, except buttock and flank] (principal); J45.909 Unspecified asthma, uncomplicated; E11.9 Type 2 diabetes mellitus without complications; I10 Essential (primary) hypertension; F17.200 Nicotine dependence, unspecified, uncomplicated; Z79.84 Long term (current) use of oral hypoglycemic drugs; Z79.899 Other long term (current) drug therapy
CPT/HCPCS: 81002; 81025; 96372; 99283; J1885

== ENCOUNTER 2021-10-31 20:48 | Emergency (ER) | payer MEDICAID ==
[~2021-10-31] VITALS: Ht 152.4 cm; Wt 85.7 kg
[~2021-10-31 20:48] MED LIST changes: +METF-713 PO; -METF850T PO
[2021-10-31 20:53] VITALS: BP 159/78
--- NOTE | 2021-10-31 20:57 | NUR ---
PT TO LOBBY TO A/W EVALUATION
--- NOTE | 2021-10-31 21:10 | NUR ---
PT EVALUATED BY DR. SUAREZ IN TRIAGE. FEMALE NEWSPAPER MANAGER FOR BREAST EXAMINATION.
[2021-10-31] MEDS ORDERED: KETOROLAC 30 MG/ML VIAL IVP ONE (21:15)
[2021-10-31] MEDS ORDERED: NACL 0.9% 2,000 ML IV ONE (21:15)
[2021-10-31] MEDS ORDERED: VANCOMYCIN 1,000 MG in DEXTROSE 5% 250 ML IV ONE (21:15)
--- NOTE | 2021-10-31 21:15 | NUR ---
TO CHAIR B TO A.W BED.
--- NOTE | 2021-10-31 21:29 | NUR ---
BLOOD DRAWN VIA IV START. GIVEN TO PHLEB. VALDO
--- NOTE | 2021-10-31 21:33 | NUR ---
PT TAKEN TO U/S VIA W/C
[2021-10-31 22:04] LABS: BASOPHILS # (AUTO) 0.1 K/uL (0.00-0.22); BASOPHILS % (AUTO) 0.6 % (0.0-2.0); EOSINOPHILS % (AUTO) 0.3 % (0.0-4.0); HEMATOCRIT 36.6 % (36-48); HEMOGLOBIN 11.9 g/dL (12.0-16.0); LYMPHOCYTES # (AUTO) 2.9 K/uL (2.5-16.5); LYMPHOCYTES % (AUTO) 16.8 % (20.5-51.1); MEAN CORPUSCULAR HEMOGLOBIN 27 pg (27-31); MEAN CORPUSCULAR HGB CONC 33 g/dL (33-37); MEAN CORPUSCULAR VOLUME 82.3 fL (80-94); MONOCYTES # (AUTO) 1.1 K/uL (0.8-1.0); MONOCYTES % (AUTO) 6.4 % (1.7-9.3); NEUTROPHILS # (AUTO) 13.2 K/uL (1.8-7.7); NEUTROPHILS % (AUTO) 75.9 % (42.2-75.2); PLATELET COUNT (AUTO) 313 K/uL (140-450); RED BLOOD CELL COUNT(AUTO) 4.45 MIL/uL (4.20-5.40); WHITE BLOOD COUNT (AUTO) 17.3 K/uL (4.8-10.8)
[2021-10-31] MEDS ORDERED: VANCOMYCIN 1,000 MG VIAL ONE (22:21)
[2021-10-31] MEDS ORDERED: cefTRIAXone 1,000 MG VIAL ONE (22:22)
[2021-10-31] MEDS ORDERED: KETOROLAC 30 MG/ML VIAL ONE (22:22)
[2021-10-31 22:53] LABS: CREATININE 1.4 mg/dL (0.6-1.3); POTASSIUM 4.2 mmol/L (3.5-5.1)
[2021-10-31 22:56] LABS: ANION GAP 14.2 (8-16)
[2021-10-31 22:57] LABS: TOTAL BILIRUBIN 0.3 mg/dL (0.0-1.0)
[2021-10-31 22:59] LABS: ALBUMIN 2.2 g/dL (3.4-5.0)
[2021-11-01] MEDS ORDERED: SULF-59 PO (01:08)
[2021-11-01] MEDS ORDERED: HYDR-5080 PO (01:08)
[2021-11-01] MEDS ORDERED: CEPH-588 PO (01:08)
[2021-11-01] MEDS ORDERED: IBUP-2218 PO (01:08)
[2021-11-01] MEDS ORDERED: INSULIN REGULAR, HUMAN 100 UNIT/ML VIAL IVP ONE (01:15)
--- NOTE | 2021-11-01 02:04 | NUR ---
IV removed, catheter intact and site benign. Applied folded 4x4 gauze and tape to stop bleeding.
[2021-11-01 02:06] VITALS: BP 137/74
--- NOTE | 2021-11-01 02:06 | NUR ---
Patient discharged. Written and verbal after care instructions given and explained about mastitis. Patient alert, oriented and verbalized understanding of instructions. Ambulatory with steady gait. All questions addressed prior to discharge. ID band removed. Patient advised to follow up with PMD. Rx of KEFLEX, NORCO 7.5-325, IBUPROFEN, AND BACTRIM given. Patient educated on indication of medication including possible reaction and side effects. Opportunity to ask questions provided and answered.
== END 2021-11-01 02:07 | disposition home or self-care (01) ==
LOC: MED 20:48
DX: N61.0 Mastitis without abscess (principal); N61.1 Abscess of the breast and nipple; A41.9 Sepsis, unspecified organism; E11.9 Type 2 diabetes mellitus without complications; E87.1 Hypo-osmolality and hyponatremia; J45.909 Unspecified asthma, uncomplicated; I10 Essential (primary) hypertension; Z79.899 Other long term (current) drug therapy; Z86.73 Personal history of transient ischemic attack (TIA), and cerebral infarction without residual deficits; Z79.84 Long term (current) use of oral hypoglycemic drugs
CPT/HCPCS: 36415; 76641; 80053; 82948; 83605; 85025; 87040; 96365; 96366; 96368; 96375; 99284; J0696; J1815; J1885; J3370; J7030; Q0092

== ENCOUNTER 2022-01-27 15:59 | Emergency (ER) | payer MEDICAID ==
[~2022-01-27] VITALS: Ht 149.1 cm; Wt 88.6 kg
[~2022-01-27 15:59] MED LIST changes: +HYDR-5080 PO; +IBUP-2218 PO
[2022-01-27 16:02] VITALS: BP 169/94
--- NOTE | 2022-01-27 16:14 | NUR ---
PT AMB TO BED 8.
[2022-01-27] MEDS ORDERED: LIDOCAINE/EPI 2% 1:100000 20 ML VIAL INJ ONE (16:25)
[2022-01-27] MEDS ORDERED: INSULIN REGULAR, HUMAN 100 UNIT/ML VIAL SUBQ ONE (16:30)
[2022-01-27] MEDS ORDERED: HYDROcodone/APAP 5/325 MG 1 TAB TAB PO ONE (16:30)
[2022-01-27] MEDS ORDERED: LIDOCAINE/PRILOCAINE 2.5% 5 GM TUBE TP ONE (17:00)
--- NOTE | 2022-01-27 17:05 | NUR ---
56 y/o female bib self with c/o abcess to left buttock x 3 days. Patient has had this happen before. Patient denies any fever or chills. Medical History: DM, HTN, HLD NKDA
--- NOTE | 2022-01-27 17:38 | NUR ---
PA Alvraado evaluating patient at bedside.
[2022-01-27] MEDS ORDERED: SULFAMETH/TRIMETH DS 800/160MG 1 TAB PO ONE (17:40)
[2022-01-27] MEDS ORDERED: cephALEXin 500 MG CAP PO ONE (17:40)
--- NOTE | 2022-01-27 18:19 | NUR ---
non adherent applied to L buttock
[2022-01-27] MEDS ORDERED: EMLAC TP (18:39)
[2022-01-27] MEDS ORDERED: CEPH-588 PO (18:39)
[2022-01-27] MEDS ORDERED: SULF-59 PO (18:39)
[2022-01-27] MEDS ORDERED: METF-346 PO (18:39)
[2022-01-27 18:57] VITALS: BP 143/78
--- NOTE | 2022-01-27 18:57 | NUR ---
Patient discharged with v/s stable. Written and verbal after care instructions given. Patient alert, oriented and verbalized understanding of instructions. Ambulatory with steady gait. All questions addressed prior to discharge. ID band removed. Patient advised to follow up with PMD. Rx of Keflex, Lidocaine-Prilocaine Cream, Glucophage and Bactrim DS given. Opportunity to ask questions provided and answered.
== END 2022-01-27 18:57 | disposition home or self-care (01) ==
LOC: MED 15:59
DX: L03.317 Cellulitis of buttock (principal); E11.65 Type 2 diabetes mellitus with hyperglycemia; J45.909 Unspecified asthma, uncomplicated; I10 Essential (primary) hypertension; Z79.899 Other long term (current) drug therapy; Z86.73 Personal history of transient ischemic attack (TIA), and cerebral infarction without residual deficits; Z79.84 Long term (current) use of oral hypoglycemic drugs
CPT/HCPCS: 82948; 96372; 99284; J1815; J2001

== ENCOUNTER 2022-01-31 11:52 | Inpatient (IN) | payer MEDICAID ==
[~2022-01-31] VITALS: Ht 165.1 cm; Wt 77.1 kg
[~2022-01-31 11:52] MED LIST changes: +EMLAC TP; +METF-346 PO
[2022-01-31 11:55] VITALS: BP 156/96
--- NOTE | 2022-01-31 11:55 | NUR ---
PATIENT TO LOBBY.
--- NOTE | 2022-01-31 12:37 | NUR ---
BIBA FROM HOME C/O 12/28 RIGHT BUTTOCK ABSCESS PAIN. PMH: HTN, DM.
--- NOTE | 2022-01-31 13:44 | NUR ---
PT AMB TO BED 11.
[2022-01-31] MEDS ORDERED: LIDOCAINE/EPI 2% 1:100000 20 ML VIAL INJ ONE (13:55)
[2022-01-31] MEDS ORDERED: KETOROLAC 30 MG/ML VIAL IM ONE (14:15)
[2022-01-31 14:31] LABS: BASOPHILS # (AUTO) 0.1 K/uL (0.00-0.22); BASOPHILS % (AUTO) 0.5 % (0.0-2.0); EOSINOPHILS # (AUTO) 0.1 K/uL (0-0.4); EOSINOPHILS % (AUTO) 0.4 % (0.0-4.0); HEMOGLOBIN 10.8 g/dL (12.0-16.0); LYMPHOCYTES # (AUTO) 2.3 K/uL (2.5-16.5); LYMPHOCYTES % (AUTO) 11.8 % (20.5-51.1); MEAN CORPUSCULAR HEMOGLOBIN 27 pg (27-31); MEAN CORPUSCULAR HGB CONC 33 g/dL (33-37); MEAN CORPUSCULAR VOLUME 82.2 fL (80-94); MONOCYTES # (AUTO) 1.3 K/uL (0.8-1.0); MONOCYTES % (AUTO) 6.5 % (1.7-9.3); NEUTROPHILS # (AUTO) 15.6 K/uL (1.8-7.7); NEUTROPHILS % (AUTO) 80.8 % (42.2-75.2); PLATELET COUNT (AUTO) 325 K/uL (140-450); RED BLOOD CELL COUNT(AUTO) 4.02 MIL/uL (4.20-5.40); RED CELL DISTRIBUTION WIDTH 14.5 % (11.6-13.7); WHITE BLOOD COUNT (AUTO) 19.3 K/uL (4.8-10.8)
[2022-01-31 14:49] LABS: ALBUMIN 1.7 g/dL (3.4-5.0); ANION GAP 13.8 (8-16); CREATININE 1.4 mg/dL (0.6-1.3); POTASSIUM 3.8 mmol/L (3.5-5.1); TOTAL BILIRUBIN 0.3 mg/dL (0.0-1.0)
--- NOTE | 2022-01-31 15:33 | NUR ---
PT WENT FOR CT
[2022-01-31] MEDS ORDERED: VANCOMYCIN PER PHARMACY MC PRN ×2 (15:50→19:30)
[2022-01-31] MEDS ORDERED: PIPERACILLIN/TAZOBACTAM 3.375 GM in DEXT 5% MINI-BAG PLUS 50 ML IV ONE (15:50)
[2022-01-31] MEDS ORDERED: VANCOMYCIN 1GM/DEXT 5% PREMIX 200 ML IV ONE (15:50)
[2022-01-31] MEDS ORDERED: NACL 0.9% 2,000 ML IV SCH (15:50)
--- NOTE | 2022-01-31 15:50 | NUR ---
PT BACK FROM CT
--- NOTE | 2022-01-31 15:55 | NUR ---
EKG DONE AT BEDSIDE
--- NOTE | 2022-01-31 16:02 | NUR ---
XR AT BEDSIDE
[2022-01-31] MEDS ORDERED: PIPERACILLIN/TAZOBACTAM 3.375 GM VIAL IV ONE ×2 (16:16→23:09)
[2022-01-31] MEDS ORDERED: MORPHINE SULFATE 4 MG/ML SYR IVP ONE (16:50)
[2022-01-31] MEDS ORDERED: VANCOMYCIN 1,000 MG VIAL ONE (16:54)
[2022-01-31] MEDS ORDERED: VANCOMYCIN 1,000 MG in DEXTROSE 5% 250 ML IV ONE (17:00)
--- NOTE | 2022-01-31 18:09 | NUR ---
PT IS CALM AND SLEEPING
[2022-01-31] MEDS ORDERED: DOCUSATE SODIUM 100 MG GELCAP PO PRN (19:30)
[2022-01-31] MEDS ORDERED: ZOLPIDEM 10 MG TAB PO PRN (19:30)
[2022-01-31] MEDS ORDERED: DEXTROSE 50% 50 ML SYR IVP PRN (19:30)
[2022-01-31] MEDS ORDERED: POTASSIUM CHLORIDE 10 MEQ TABER PO PRN (19:30)
[2022-01-31] MEDS ORDERED: MAG SULF 2000 MG/WATER PREMIX 50 ML IV PRN (19:30)
[2022-01-31] MEDS ORDERED: ONDANSETRON 4 MG/2 ML VIAL IVP PRN (19:30)
[2022-01-31] MEDS ORDERED: ACETAMINOPHEN 325 MG TAB PO PRN (19:30)
[2022-01-31] MEDS ORDERED: INSULIN LISPRO 100 UNITS/ML VIAL SUBQ ONE (19:30)
--- NOTE | 2022-01-31 19:40 | NUR ---
ASSUMED CARE OF PT AT THIS TIME. PT IN POSITION OF COMFORT. AWAITING BED ASSIGNMENT. PT AWARE. VSS.
[2022-01-31] MEDS ORDERED: PIPERACILLIN/TAZOBACTAM 3.375 GM in DEXTROSE 5% 50 ML IV SCH (21:00)
[2022-01-31] MEDS: BLOOD GLUCOSE MONITORING 1 DEV DEV FS SCH (21:16)
[2022-01-31] MEDS: MORPHINE SULFATE 2 MG/ML SYR IVP PRN (21:25)
[2022-01-31] MEDS: INSULIN LISPRO SLIDING SCALE 100 UNITS/ML VIAL SUBQ PRN (21:34)
--- NOTE | 2022-01-31 21:45 | NUR ---
URINE TAKEN TO LAB
[2022-01-31 21:57] LABS: APPEARANCE,URINE CLEAR (CLEAR); BILIRUBIN,URINE NEGATIVE (NEGATIVE); BLOOD, URINE 1+ (NEGATIVE); COLOR,URINE YELLOW (YELLOW); LEUKOCYTE ESTERASE ,URINE NEGATIVE (NEGATIVE); NITRITE, URINE NEGATIVE (NEGATIVE); UGLUCOSE 3+ (NEGATIVE)
[2022-01-31 22:00] VITALS: BP 111/68
--- NOTE | 2022-01-31 22:00 | NUR ---
PT TAKEN TO BED 104A VIA GURNEY, ON C-MONITOR. NO S/S OF DISTRESS NOTED.
[2022-01-31 22:36] LABS: RBC,URINE 0-5 /HPF (0-5); WBC,URINE 0-5 /HPF (0-5)
--- NOTE | 2022-01-31 23:00 | NUR ---
RECEIVED REPORT FROM ER NURSE DONNIE FOR CONTINUITY OF CARE. PATIENT ARRIVED ON UNIT AT 2200. PATIENT IS A&O X4. PATIENT IS ON ROOM AIR. PATIENT'S IV IS A 20G LFA, NO FLUIDS RUNNING AT THIS TIME. PATIENT ARRIVED ON UNIT AND IMMEDIATELY USED THE REST ROOM. PATIENT IS COMPLAINING ABOUT PAIN, DESPITE HAVING JUST BEEN GIVEN MORPHINE IN THE ER AT 2131. OBTAINED PATIENT'S VITALS, VITALS WERE: BP 111/68, HR 101, TEMP 97.9, O2 96%, RR 18. PATIENT IS UNCOOPERATIVE, CRYING COMPLAINING OF PAIN. PATIENT ASKED IF SHE COULD HAVE A DRESSING PLACED ON HER WOUND. LOOKED AT PATIENT'S WOUND LOCATED ON LEFT BUTTOCKS; WOUND WAS OPEN TO AIR AND RED. PLACED 4X4 GAUZE OVER WOUND. PATIENT REQUESTED MORE MORPHINE, INFORMED PATIENT HER MORPHINE IS SCHEDULED EVERY 4 HOURS AND WAS NOT DUE TILL 130. PATIENT WAS UPSET, AND ASKED WHEN DINNER WAS BEING BROUGHT. I INFORMED THE PATIENT THAT IT WAS AFTER 10PM AND THE CAFETERIA WAS CLOSED; BUT WE HAD SOME FOODS ON THE UNIT. I OFFERED HER PUDDING, APPLESAUCE, AND JELLO. PATIENT REFUSED THESE FOODS AND STATED SHE WANTED A MEAL PREPARED FOR HER. I INFORMED HER ONCE AGAIN THAT THE CAFETERIA WAS CLOSED, SO THESE ARE THE ONLY FOODS I HAVE AT THE MOMENT. PATIENT TOOK THE JELLO. I, INFORMED PATIENT THAT I NEEDED TO START HER ADMISSION. SHE ASKED, "WHAT'S THAT?" I STATED THAT I NEEDED TO ASK HER SOME QUESTIONS ABOUT HER HEALTH HISTORY; SHE IMMEDIATELY SAID, " NO!!! I'M NOT ANSWERING ANY QUESTIONS. IF YOU HAVE QUESTIONS, YOU CAN ASK THEM TOMORROW." I INFORMED HER THAT THE ADMISSION NEEDS TO BE DONE NOW, BECAUSE THIS IS WHEN SHE ARRIVED ON THE UNIT. SHE ONCE AGAIN STATED NO, AND REFUSED TO ANSWER ANY QUESTIONS. PATIENT THEN LAID DOWN. WILL CONTINUE TO OBSERVE PATIENT.
[2022-01-31] MEDS: PIPERACILLIN/TAZOBACTAM 3.375 GM in DEXTROSE 5% 50 ML IV SCH (23:12)
[2022-02-01] VITALS: BP 133/67
--- NOTE | 2022-02-01 00:30 | NUR ---
IVPB ZOSYN WAS ADMINISTERED AT 2312. IVPB STARTED SUCCESSFULLY WITHOUT ANY ISSUES. PATIENT CONTINUED TO ASK FOR PAIN MEDICATION. I EXPLAINED TO THE PATIENT, THAT THE MEDICATION IS EVERY 4 HOURS SO SHE WOULDN'T BE DUE YET. OBTAINED 0000 VITALS; VITALS WERE: BP 133/67, HR 99, O2 100%, RR 18, TEMP 98.2. PATIENT CALLED AT 0015 AND STATED SHE NEEDED TO USE THE BATHROOM. WENT INTO ROOM, PATIENT WAS WALKING WITH THE IV POLE CRYING AND YELLING "GET THIS IV OFF ME, I CAN'T WALK WITH IT". I IMMEDIATELY DISCONNECTED THE PATIENT FROM THE IV. PATIENT LOOKED AT ME AND TOLD ME TO GET HER ANOTHER GOWN, THE ONE SHE HAD WASN'T WORKING FOR HER; THEN SHE WENT INTO THE BATHROOM. I OBTAINED ANOTHER GOWN AND REENTERED THE ROOM JUST BEFORE SHE CAME OUT. WHEN SHE CAME OUT OF THE BATHROOM SHE TOLD ME SHE SHE ASKED FOR ANOTHER GOWN, I TOLD HER I BROUGHT ONE AND I CAN HELP HER PUT IT ON. SHE THEN SAID TO ME, "WELL, I DON'T WANT IT NOW". I SAID, "OK", AND PLACED THE GOWN ON THE TABLE. I OFFERED TO HOOK HER BACK TO THE IV. SHE STATED SHE DIDN'T WANT IT. I CHECKED THE IVPB AND SAW THAT IT WAS COMPLETED, SO I LEFT THE PATIENT OFF THE IV SINCE SHE DIDN'T HAVE ANY FLUIDS SCHEDULED. WILL CONTINUE TO OBSERVE PATIENT.
--- NOTE | 2022-02-01 02:00 | NUR ---
PATIENT HAS BEEN CALLING REQUESTING THAT THE CAFETERIA BE OPENED FOR HER. I CONTINUE TO INFORM THE PATIENT THAT I DON'T HAVE THE ABILITY TO OPEN THE CAFETERIA AND OFFER HER THE FOODS WE HAVE ON THE UNIT. SHE CONTINUES TO DECLINE THE FOODS OFFERED. WILL CONTINUE TO OBSERVE PATIENT.
[2022-02-01] MEDS: MORPHINE SULFATE 2 MG/ML SYR IVP PRN ×3 (02:34→23:54)
--- NOTE | 2022-02-01 03:00 | NUR ---
PATIENT CALLED AND REQUESTED PAIN MEDICATION. CHECKED PATIENT'S VITALS; VITALS WERE WNL. CHECKED PATIENT'S CHART MORPHINE WAS APPROPRIATE. ADMINISTERED MORPHINE AT 0234, PATIENT TOLERATED WELL. PATIENT IS CRYING; PATIENT ASKED ME TO HOLD HER MONEY FOR HER SO IT DOESN'T GET LOST. I TOLD HER SHE CAN PUT IT IN HER BELONGINGS BAG, I GRABBED THE BAG AND HELD IT OPEN FOR HER TO DROP IT IN. I THEN PLACE THE BAG BACK ON HER NIGHT STAND. I TOLD THE PATIENT TO TRY AND GET SOME REST.
[2022-02-01 04:00] VITALS: BP 138/81
--- NOTE | 2022-02-01 05:30 | NUR ---
WENT INTO ROOM TO TRY AND PUT TELEMETRY BACK ON PATIENT AND OBTAIN 0400 VITALS. PATIENT KEEPS TAKING TELEMETRY OFF. VITALS WERE: BP 138/81, HR 103, TEMP 97.8, O2 96%, RR 18. WAS LATER INFORMED BY OPERATIONS SECTION MANAGER THAT PATIENT WANTED SALTINE CRACKERS AND WOULD TAKE THE [employer] SANDWICH THAT HAD BEEN PREVIOUSLY OFFERED. I BROUGHT PATIENT THE SANDWICH AND CRACKERS. I HELPED PATIENT OPEN THE SANDWICH AND GAVE HER SOME PAPER TOWELS. I LOOKED IN THE BATHROOM AND SAW URINE ALL OVER THE FLOOR. I WENT AND GRABBED SOME TOWELS AND CLEANED UP THE BATHROOM FLOOR, I THEN GRABBED SOME SANITARY WIPES AND WIPED THE FLOOR. PATIENT IS EATING HER SANDWICH. WILL CONTINUE TO OBSERVE PATIENT.
[2022-02-01] MEDS: BLOOD GLUCOSE MONITORING 1 DEV DEV FS SCH ×4 (07:08→21:44)
[2022-02-01] MEDS: INSULIN LISPRO SLIDING SCALE 100 UNITS/ML VIAL SUBQ PRN ×4 (07:10→21:45)
--- NOTE | 2022-02-01 07:15 | NUR ---
OBTAINED BS; BS WAS 306, GAVE 8 UNITS FOR COVERAGE. PATIENT WAS LYING SUPINE ON HER RIGHT SIDE. BREATHING WAS NORMAL WITH SYMMETRICAL RISE AND FALL OF CHEST. WILL CONTINUE TO OBSERVE PATIENT.
[2022-02-01 07:19] LABS: ANION GAP 10.5 (8-16); CARBON DIOXIDE 25.2 mmol/L (21-32); POTASSIUM 3.7 mmol/L (3.5-5.1)
--- NOTE | 2022-02-01 07:45 | NUR ---
ENDORSED TO DAY SHIFT NURSE DAVION FOR CONTINUITY OF CARE. PATIENT IS STABLE.
--- NOTE | 2022-02-01 07:55 | NUR ---
RECEIVE REPORT FROM PM SHIFT NURSE THAT PATIENT COME FOR L. GLUTEAL ABSCESS W/ PAIN. EDEMA, DIAGNOSIS WITH SEPSIS WITH HX TO ATHEROSCLEROSIS, CARDIOMEGALY, DM, HTN, CVA, ASTHMA; PATIENT HAS NKA, FULL CODE; AMBULATORY, ON TEL MONITOR (TACHYCARDIA), ACCUCHECK AC&HS. BATHROOM PRIVILEGE BUT FOUND PATIENT URINATE ON THE FLOOR (INCONTINENT? URGENCY?) DURING PM SHIFT. PIV LAC SALINE LOCK; MELVIN CONTINUE TO MONITOR
[2022-02-01 08:00] VITALS: BP 127/64
[2022-02-01] MEDS: PIPERACILLIN/TAZOBACTAM 3.375 GM in DEXTROSE 5% 50 ML IV SCH ×3 (08:25→23:30)
--- NOTE | 2022-02-01 10:32 | NUR ---
PATIENT HAS BEEN SCREENED AND CATEGORIZED HIGH NUTRITION RISK. PATIENT WILL BE SEEN WITHIN 1-2 DAYS OF ADMISSION. 01/31/22-02/02/[address]UD SABILL[address]
--- NOTE | 2022-02-01 10:38 | NUR ---
WOUND CARE NOTE: PT. ADMITTED WITH LEFT INNER BUTTOCK CELLULITIS, CLOSED WOUND 3X1CM MOIST WITH FERNANDO WOUND SKIN ERYTHEMA, SWELLING AND TENDER TO TOUCH,SKIN INTACT, NO ODOR, PAIN 2/10. POC DISCUSSED WITH PT. WITH WOUND CARE TEACHING DONE. PT VERBALIZES UNDERSTANDING. ALL QUESTIONS ANSWERED. POC DISCUSSED WITH PRIMARY RN MARTELL. RECOMMENDATIONS: -CONTINUE IV ANTIBIOTIC ORDERED -CLEANSE LEFT INNER BUTTOCK WOUND WITH NS, PAT DRY, APPLY SILVAGEL TO WOUND BED AND COVER WITH COMPOSITE DRESSING QD AND PRN IF SOILING.
--- NOTE | 2022-02-01 11:00 | NUR ---
DC PLANNING ATTEMPTED TO MEET WITH PT AT BEDSIDE TO COMPLETE ASSESSMENT HOWEVER, PT HEAVILY SLEEPING. PT NOT RESPONSIVE TO NAME BEING CALLED SEVERAL TIMES. SW TO FOLLOW
[2022-02-01] MEDS: LORazepam 2 MG/ML VIAL IVP PRN (11:20)
[2022-02-01 11:31] LABS: BASOPHILS # (AUTO) 0.1 K/uL (0.00-0.22); BASOPHILS % (AUTO) 0.5 % (0.0-2.0); EOSINOPHILS # (AUTO) 0.2 K/uL (0-0.4); EOSINOPHILS % (AUTO) 0.8 % (0.0-4.0); HEMATOCRIT 30.7 % (36-48); LYMPHOCYTES % (AUTO) 15.5 % (20.5-51.1); MEAN CORPUSCULAR HEMOGLOBIN 27 pg (27-31); MEAN CORPUSCULAR HGB CONC 33 g/dL (33-37); MEAN CORPUSCULAR VOLUME 82.4 fL (80-94); MONOCYTES # (AUTO) 1.3 K/uL (0.8-1.0); MONOCYTES % (AUTO) 6.7 % (1.7-9.3); NEUTROPHILS # (AUTO) 14.6 K/uL (1.8-7.7); NEUTROPHILS % (AUTO) 76.5 % (42.2-75.2); PLATELET COUNT (AUTO) 326 K/uL (140-450); RED BLOOD CELL COUNT(AUTO) 3.73 MIL/uL (4.20-5.40); RED CELL DISTRIBUTION WIDTH 14.4 % (11.6-13.7); WHITE BLOOD COUNT (AUTO) 19.1 K/uL (4.8-10.8)
[2022-02-01] MEDS ORDERED: KETOROLAC 15 MG/ML VIAL IVP PRN (11:50)
[2022-02-01] MEDS ORDERED: NACL 0.9% 1,000 ML IV SCH (11:50)
[2022-02-01 12:00] VITALS: BP 131/69
[2022-02-01] MEDS: GAUZE TP SCH (13:04)
[2022-02-01] MEDS ORDERED: VANCOMYCIN HCL 1,250 MG in DEXTROSE 5% 250 ML IV SCH (15:00)
[2022-02-01] MEDS ORDERED: VANCOMYCIN HCL 1.25 GM in NACL 0.9% 250 ML IV SCH (15:00)
--- NOTE | 2022-02-01 15:16 | NUR ---
02/01/22 RD INITIAL ASSESSMENT COMPLETED PLEASE REFER TO NUTRITION ASSESSMENT UNDER CARE ACTIVITY FOR ESTIMATED NUTRITIONAL NEEDS. 1. WHEN/IF MEDICALLY APPROPRIATE, RECOMMEND CCHO 60GM DIET TOLERATED. -MONITOR BLOOD GLUCOSE LEVELS 2. MONITOR NPO STATUS. 3. OFFERED DIABETES EDUCATION; PATIENT DECLINED. 4. RD TO FOLLOW-UP 7 DAYS, LOW RISK REVIEWED BY ARNAUD SABILLON RD
[2022-02-01 16:00] VITALS: BP 163/82
[2022-02-01] MEDS ORDERED: LIDOCAINE/EPI MPF 2%1:200000 10 ML VIAL INJ ONE (16:15)
[2022-02-01] MEDS ORDERED: BUPIVACAINE-MPF 0.25% 30 ML VIAL INJ ONE (16:15)
[2022-02-01] MEDS ORDERED: SEVOFLURANE 250 ML BTL INH ONE (17:40)
[2022-02-01] MEDS ORDERED: fentaNYL citrate 0.05 MG/ML VIAL ONE (17:46)
[2022-02-01] MEDS ORDERED: PROPOFOL 200 MG/20 ML VIAL IV ONE (17:47)
[2022-02-01] MEDS ORDERED: MEPERIDINE 50 MG/ML SYR ONE (18:22)
[2022-02-01] MEDS ORDERED: ONDANSETRON 4 MG/2 ML VIAL IV PRN (18:50)
[2022-02-01] MEDS ORDERED: HYDROmorphone 1 MG/ML AMP IVP PRN (19:00)
[2022-02-01] MEDS ORDERED: MEPERIDINE 25 MG/ML SYR IVP PRN (19:00)
[2022-02-01] MEDS ORDERED: ONDANSETRON 4 MG/2 ML VIAL IVP PRN (19:00)
[2022-02-01] MEDS ORDERED: diphenhydrAMINE 50 MG/ML VIAL IVP PRN (19:00)
[2022-02-01] MEDS: NACL 0.9% 1,000 ML IV SCH (19:00)
--- NOTE | 2022-02-01 19:36 | NUR ---
ENDORSE PATIENT TO PM SHIFT NURSE WHILE PATIENT STILL IN I&D PROCEDURE FOR L. BUTTOCK WOUND. PM SHIFT NURSE AWARE THAT DRUG SCREEN STILL NEED COLLECTING URINE
[2022-02-01 20:00] VITALS: BP 123/68
--- NOTE | 2022-02-01 21:45 | NUR ---
BLOOD SUGAR CHECK WAS 162 ADMINISTERED HUMALOG 2 UNITS ORDERED PER SLIDING SCALE.
--- NOTE | 2022-02-01 23:15 | NUR ---
IV LINE LEAKING, REMOVED AND STARTED A NEW IV LINE ON THE RIGHT FOREARM. TOLERATED WELL.
--- NOTE | 2022-02-01 23:30 | NUR ---
SCHEDULED ZOSYN ADMINISTERED ORDERED.
[2022-02-02] VITALS: BP 119/75
[2022-02-02] MEDS: NACL 0.9% 1,000 ML IV SCH ×4 (02:29→20:00)
[2022-02-02 04:00] VITALS: BP 112/68
[2022-02-02 06:25] LABS: BASOPHILS % (AUTO) 0.3 % (0.0-2.0); EOSINOPHILS # (AUTO) 0.2 K/uL (0-0.4); EOSINOPHILS % (AUTO) 1.1 % (0.0-4.0); HEMATOCRIT 28.8 % (36-48); HEMOGLOBIN 9.5 g/dL (12.0-16.0); LYMPHOCYTES # (AUTO) 2.6 K/uL (2.5-16.5); LYMPHOCYTES % (AUTO) 17.5 % (20.5-51.1); MEAN CORPUSCULAR HEMOGLOBIN 27 pg (27-31); MEAN CORPUSCULAR HGB CONC 33 g/dL (33-37); MEAN CORPUSCULAR VOLUME 82.2 fL (80-94); MONOCYTES # (AUTO) 1.4 K/uL (0.8-1.0); MONOCYTES % (AUTO) 9.1 % (1.7-9.3); NEUTROPHILS # (AUTO) 10.9 K/uL (1.8-7.7); PLATELET COUNT (AUTO) 300 K/uL (140-450); RED BLOOD CELL COUNT(AUTO) 3.51 MIL/uL (4.20-5.40); RED CELL DISTRIBUTION WIDTH 14.1 % (11.6-13.7); WHITE BLOOD COUNT (AUTO) 15.1 K/uL (4.8-10.8)
[2022-02-02] MEDS: INSULIN LISPRO SLIDING SCALE 100 UNITS/ML VIAL SUBQ PRN ×4 (06:55→22:17)
[2022-02-02] MEDS: BLOOD GLUCOSE MONITORING 1 DEV DEV FS SCH ×4 (06:55→21:00)
--- NOTE | 2022-02-02 06:55 | NUR ---
BLOOD SUGAR CHECK WAS 283, HUMALOG INSULIN ADMINISTERED ORDERED PER SLIDING SCALE.
[2022-02-02 07:01] LABS: ANION GAP 11.1 (8-16); CARBON DIOXIDE 25.6 mmol/L (21-32); CREATININE 1.3 mg/dL (0.6-1.3); POTASSIUM 3.7 mmol/L (3.5-5.1)
--- NOTE | 2022-02-02 07:22 | NUR ---
ENDORSED PATIENT TO DAY SHIFT NURSE FOR CONTINUITY OF CARE.
--- NOTE | 2022-02-02 07:25 | NUR ---
RECEIVED BEDSIDE REPORT FROM NIGHTSHIFT PRATIBHA DEE FOR CONTINUITY OF CARE. PT IS A&OX4, ON ROOM AIR. PT IS RESTING W/O S/S OF DISTRESS. PT HAS 22G IV ON THE RIGHT FOREARM, NORMAL SALINE RUNNING AT 120 ML/HR. PTS BED IS IN LOWEST POSITION, CALL LIGHT WITHIN REACH.
[2022-02-02 08:00] VITALS: BP 136/69
[2022-02-02] MEDS: PIPERACILLIN/TAZOBACTAM 3.375 GM in DEXTROSE 5% 50 ML IV SCH ×3 (08:24→23:19)
[2022-02-02] MEDS: MORPHINE SULFATE 2 MG/ML SYR IVP PRN ×2 (08:30→12:47)
--- NOTE | 2022-02-02 08:30 | NUR ---
PT STATED PAIN IN BUTTOCKS REGION IS 8/10, MEDICATED WITH PRN MORPHINE.
--- NOTE | 2022-02-02 11:30 | NUR ---
PTS BLOOD SUGAR 289, GAVE 6 UNITS OF HUMALOG.
--- NOTE | 2022-02-02 12:47 | NUR ---
PT STATES PAIN IS 7/10 IN BUTTOCKS REGION. MEDICATED WITH PRN MORPHINE.
[2022-02-02] MEDS: GAUZE TP SCH (13:11)
--- NOTE | 2022-02-02 13:33 | NUR ---
DC PLANNING SW MET WITH PT AT BEDSIDE TO COMPLETE ASSESSMENT. PATIENT REPORTS RESIDING ON A SECOND FLOOR APT WITH HER PARTNER, AT THE ADDRESS LISTED ON FILE. PT IDENTIFIED ROCCO NORWOOD, SISTER, [phone] EMERGENCY CONTACT. PT DENIED HAVING AD IN PLACE AND DECLINED AD OFFERED BY ИВАН. PT REPORTS BEING INCONSISTENT WITH MEETING WITH PCP, LAST VISIT 3 YRS AGO. SW SPOKE WITH PT ABOUT IMPORTANCE ON F/UP CARE, PT RECEPTIVE AND NODDED HER HEAD. PT REPORTS SHE CURRENTLY DOES NOT TAKE MEDICATION AT THIS TIME AND DENIES BARRIERS IN ACCESS TO MEDICATIONS, IF NEEDED. PATIENT REPORTS RECEIVING MEDICATION FROM [facility] ON [address] IN [place], WHEN NEEDED. PT REPORTS BEING AMBULATORY AND DENIES USE OF DME. PT REPORTS SHE REQUIRES ASSISTANCE WITH ADL'S. PT REPORTS SHE WOULD LIKE [facility] RESOURCES. PT REPORTS MENTAL HEALTH HX OF ANXIETY & DEPRESSION. PT REPORTS DX ABOUT 6 MONTHS AGO FROM [employer] THERAPIST. 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 PT REPORTS NO INTEREST IN MEETING WITH THERAPIST AT THIS TIME. PT DENIES HX OF SUBSTANCE USE. PT REPORTS HX OF DIABETES AND REPORTS DIABETES IS POORLY MANAGED SHE STRUGGLES TO EAT PROPERLY. SW OFFERED TO PROVIDE PT WITH DIABETES RESOURCES HOWEVER, PT DECLINED. PT REPORTS ADEQUATE FOOD IN THE HOME, PT REPORTS RECEIVING [employer] BENEFITS OF $200/MONTHLY. PT REPORTS DC PLAN IS TO RETURN HOME AND REPORTS SHE MAY REQUIRE [facility]. SW INQUIRED ON ADDITIONAL RESOURCES NEEDED, PT DECLINED. PT DENIES HX OF HH, SNF, DIALYSIS [place]. Addendum: 02/02/22 at 1338 by Александр AMAYA Amended: Links added.
--- NOTE | 2022-02-02 13:53 | NUR ---
DC PLANNIN YRS OLD FEMALE PATIENT WAS ADMITTED FROM HOME WITH A DX OF SEPSIS. PATIENT HAS A HX OF ASTHMA, CARDIOMYOPATHY CVA, DM AND HTN. CXR SHOWED NO RADIOGRAPHIC EVIDENCE OF ACUTE CARDIOPULMONARY DISEASE. CT ABD SHOWED GENERALIZED SUBCUTANEOUS EDEMA IN THE LEFT BUTTOCK WITHOUT FOCAL FLUID. RAPID COVID TEST NEGATIVE. ADMINISTERED IVF, IV ABX VANCOMYCIN AND ZOSYN AND CONTINUED HOME MEDS. DR LANGE PERFORMED I&D OF LEFT PERIANAL BUTTOCK ABSCESS. DC PLAN TO GO HOME WHEN STABLE. CM TO FOLLOW Addendum: 02/05/22 at 1558 by Jelly Allen RN DC PLANNING: RECEIVED A CALL FROM NELA , [place] ,[facility] , AND [facility] STATED NOT CONTRACT[facility] WITH [facility] FAXED TO [facility], [facility], [facility][NOTE 3], [facility] , [facility], [facility] AND [facility]. CM TO FOLLOW
[2022-02-02] MEDS: VANCOMYCIN 1,000 MG in NACL 0.9% 250 ML IV SCH (15:18)
[2022-02-02 16:00] VITALS: BP 105/45
--- NOTE | 2022-02-02 18:25 | NUR ---
PT REMOVED IV, DUE TO TOSSING AND TURNING IN BED. CANULA INTACT. MINIMAL BLEEDING.
[2022-02-02 18:31] LABS: BARBITURATE, URINE NEGATIVE ng/ml (NEG <=200); BENZODIAZEPINE, URINE POSITIVE ng/mL (NEG <=200); CANNABINOID, URINE NEGATIVE ng/mL (NEG <=50); COCAINE, URINE NEGATIVE ng/mL (NEG <=300); OPIATE, URINE POSITIVE ng/mL (NEG <=2000); PHENCYCLIDINE SCREEN,URINE NEGATIVE ng/mL (NEG <=25)
[2022-02-02] MEDS: HYDROcodone/APAP 5/325 MG 1 TAB TAB PO PRN (19:03)
--- NOTE | 2022-02-02 19:15 | NUR ---
ENDORSED PT TO NIGHTSHIFT PRATIBHA DEE. PT IN STABLE CONDITION, NO S/S OF DISTRESS.
--- NOTE | 2022-02-02 23:10 | NUR ---
PERIPHERAL IV STARTED ON THE LEFT HAND 22 GAUGE WITH GOOD BACK FLOW OF BLOOD. TOLERATED WELL.
--- NOTE | 2022-02-02 23:19 | NUR ---
ADMINISTERED SCHEDULED MEDICATION ORDERED.
--- NOTE | 2022-02-02 23:30 | NUR ---
ASSISTED PATIENT TO BEDSIDE COMMODE AND BACK TO BED. NEEDS MET.
[2022-02-03] VITALS: BP 109/60
[2022-02-03] MEDS: VANCOMYCIN 1,000 MG in NACL 0.9% 250 ML IV SCH ×2 (02:24→18:03)
[2022-02-03] MEDS: HYDROcodone/APAP 5/325 MG 1 TAB TAB PO PRN ×2 (02:25→09:29)
[2022-02-03] MEDS: MORPHINE SULFATE 2 MG/ML SYR IVP PRN (02:37)
[2022-02-03] MEDS: NACL 0.9% 1,000 ML IV SCH ×3 (04:20→22:06)
[2022-02-03] MEDS: BLOOD GLUCOSE MONITORING 1 DEV DEV FS SCH ×4 (07:03→21:00)
--- NOTE | 2022-02-03 07:17 | NUR ---
BEDSIDE REPORT GIVEN TO DAY SHIFT NURSE FOR CONTINUITY OF CARE. PATIENT STABLE.
--- NOTE | 2022-02-03 07:58 | NUR ---
RECEIVED PT CARE AND REPORT FROM LEILA MCKINNON. PT IS RESTING IN BED SEMI-FOWLERS, COMPLAINING OF PAIN, APPEARS UPSET. NO VISIBLE S/S OF DISTRESS. PT REPORTS DISCOMFORT AND DENIES SOB. CALL LIGHT IS WITHIN REACH, ALL NEEDS MET AT THIS TIME.
[2022-02-03 08:00] VITALS: BP 155/85
[2022-02-03] MEDS: MORPHINE SULFATE 4 MG/ML SYR IV PRN ×2 (08:06→17:21)
[2022-02-03] MEDS: PIPERACILLIN/TAZOBACTAM 3.375 GM in DEXTROSE 5% 50 ML IV SCH ×3 (08:06→23:15)
--- NOTE | 2022-02-03 08:15 | NUR ---
IV NOT FLUSHING AT THIS TIME. PT COMPLAINING OF PAIN AT IV SITE WHEN ATTEMPTING TO FLUSH. MELLISSA WALLACE ATTEMPTED TO START NEW IV ONCE. PT BECAME VERBALLY ABUSIVE AND BEGAN YELLING. REFUSING IV INSERTION AT THIS TIME. WILL ATTEMPT LATER.
--- NOTE | 2022-02-03 10:34 | NUR ---
ATTEMPTED TO START IV ON PATIENT. PT HAS HISTORY OF DRUG ABUSE AND IS A HARD STICK. ATTEMPTED X1. PT GREW AGITATED AND BEGAN YELLING. SPOKE WITH CHARGE NURSE ANATOLY AND TEXTED DR. HUGHES FOR POSSIBLE PICC/MID LINE INSERTION. AWAITING ORDERS.
--- NOTE | 2022-02-03 11:51 | NUR ---
CONSENT FORM FOR MIDLINE INSERTION SIGNED BY DR. HUGHES AND PATIENT. CHARGE NURSE ANATOLY TEXTED PICC LINE NURSE TO INFORM. THEY STATED THAT THE ORDER WAS GIVEN TO FRANKIE. AWAITING MIDLINE INSERTION FOR ANTIBIOTICS AND PAIN MEDICATIONS.
[2022-02-03] MEDS: GAUZE TP SCH (13:00)
[2022-02-03 13:47] LABS: BASOPHILS # (AUTO) 0.1 K/uL (0.00-0.22); BASOPHILS % (AUTO) 0.6 % (0.0-2.0); EOSINOPHILS # (AUTO) 0.2 K/uL (0-0.4); EOSINOPHILS % (AUTO) 1.8 % (0.0-4.0); HEMATOCRIT 28.9 % (36-48); HEMOGLOBIN 9.5 g/dL (12.0-16.0); LYMPHOCYTES # (AUTO) 2.5 K/uL (2.5-16.5); LYMPHOCYTES % (AUTO) 22.4 % (20.5-51.1); MEAN CORPUSCULAR HEMOGLOBIN 27 pg (27-31); MEAN CORPUSCULAR HGB CONC 33 g/dL (33-37); MEAN CORPUSCULAR VOLUME 83.4 fL (80-94); MONOCYTES # (AUTO) 0.7 K/uL (0.8-1.0); MONOCYTES % (AUTO) 6.5 % (1.7-9.3); NEUTROPHILS # (AUTO) 7.6 K/uL (1.8-7.7); NEUTROPHILS % (AUTO) 68.7 % (42.2-75.2); PLATELET COUNT (AUTO) 320 K/uL (140-450); RED BLOOD CELL COUNT(AUTO) 3.47 MIL/uL (4.20-5.40); RED CELL DISTRIBUTION WIDTH 14.4 % (11.6-13.7)
[2022-02-03 13:59] LABS: ANION GAP 7.4 (8-16); CARBON DIOXIDE 29.9 mmol/L (21-32); CREATININE 1.3 mg/dL (0.6-1.3); POTASSIUM 4.3 mmol/L (3.5-5.1)
[2022-02-03 16:00] VITALS: BP 148/82
[2022-02-03] MEDS: INSULIN LISPRO SLIDING SCALE 100 UNITS/ML VIAL SUBQ PRN (16:49)
--- NOTE | 2022-02-03 17:00 | NUR ---
PT HAD MIDLINE INSERTED INTO UPPER LEFT ARM. STAT CXR ORDERED, PATIENT REFUSED. ANATOLY CHARGE NURSE STATED THAT MIDLINE IS OKAY TO USE AND DOES NOT REQUIRE CXR. 1500 VANCOCIN AND 1600 ZOSYN TO BE ADMINISTERED.
--- NOTE | 2022-02-03 18:56 | NUR ---
PT IS RESTING IN BED ON RIGHT SIDE, A&OX4, NO VISIBLE S/S OF DISTRESS OR DISCOMFORT. DENIES PAIN OR SOB. CALL LIGHT WITHIN REACH, ALL NEEDS MET AT THIS TIME. WILL ENDORSE TO NOC SHIFT.
[2022-02-03] MEDS: HYDROmorphone 1 MG/ML AMP IVP PRN (22:08)
[2022-02-04] VITALS: BP 148/82
[2022-02-04] MEDS: VANCOMYCIN 1,000 MG in NACL 0.9% 250 ML IV SCH ×2 (02:21→14:28)
[2022-02-04] MEDS: LORazepam 2 MG/ML VIAL IVP PRN (04:03)
--- NOTE | 2022-02-04 04:25 | NUR ---
SENT DR. HUGHES A TEXT RE: PT'S HIGH BP: 162/105 AND NO ORDER FOR PRN BP MED. ATIVAN 2MG/IVP WAS GIVEN AT 0403. ALSO PT ACTS OUT AT TIMES AND URINATES ALL AVER THE FLOOR. REQUESTED AN ORDER SO THE PT MAY SHOWER WITH ASSISTANCE DUE TO ODOR. AWAITING 'S REPLY.
[2022-02-04] MEDS: NACL 0.9% 1,000 ML IV SCH ×3 (05:20→22:19)
[2022-02-04] MEDS: BLOOD GLUCOSE MONITORING 1 DEV DEV FS SCH ×4 (06:36→21:17)
[2022-02-04] MEDS: INSULIN LISPRO SLIDING SCALE 100 UNITS/ML VIAL SUBQ PRN ×4 (06:39→21:19)
--- NOTE | 2022-02-04 07:00 | NUR ---
STILL HAVE NOT HEARD FROM DR. HUGHES. WILL ENDORSE TO DAY SHIFT TO FOLLOW UP RE: PRN BP MED AND ORDER TO SHOWER DUE TO ODOR AND DELIBERATE INCONTINENCE AND ACTING OUT.
--- NOTE | 2022-02-04 07:10 | NUR ---
PT HEARD SCREAMING BUT BY THE TIME I GOT TO THE ROOM CALM SLEEPING.[id number]
[2022-02-04 08:00] VITALS: BP 130/80
[2022-02-04] MEDS: PIPERACILLIN/TAZOBACTAM 3.375 GM in DEXTROSE 5% 50 ML IV SCH ×3 (08:02→23:41)
[2022-02-04 11:08] LABS: BASOPHILS # (AUTO) 0.1 K/uL (0.00-0.22); BASOPHILS % (AUTO) 1.2 % (0.0-2.0); EOSINOPHILS # (AUTO) 0.2 K/uL (0-0.4); EOSINOPHILS % (AUTO) 1.9 % (0.0-4.0); HEMATOCRIT 28.5 % (36-48); HEMOGLOBIN 9.4 g/dL (12.0-16.0); LYMPHOCYTES # (AUTO) 2.4 K/uL (2.5-16.5); MEAN CORPUSCULAR HEMOGLOBIN 27 pg (27-31); MEAN CORPUSCULAR HGB CONC 33 g/dL (33-37); MEAN CORPUSCULAR VOLUME 82.2 fL (80-94); MONOCYTES # (AUTO) 0.8 K/uL (0.8-1.0); MONOCYTES % (AUTO) 7.5 % (1.7-9.3); NEUTROPHILS # (AUTO) 7.7 K/uL (1.8-7.7); NEUTROPHILS % (AUTO) 68.4 % (42.2-75.2); PLATELET COUNT (AUTO) 350 K/uL (140-450); RED BLOOD CELL COUNT(AUTO) 3.47 MIL/uL (4.20-5.40); RED CELL DISTRIBUTION WIDTH 14.3 % (11.6-13.7); WHITE BLOOD COUNT (AUTO) 11.2 K/uL (4.8-10.8)
[2022-02-04 11:17] LABS: ANION GAP 7.9 (8-16); CARBON DIOXIDE 31.6 mmol/L (21-32); POTASSIUM 3.5 mmol/L (3.5-5.1)
[2022-02-04] MEDS: GAUZE TP SCH (13:00)
[2022-02-04 16:00] VITALS: BP 131/72
--- NOTE | 2022-02-04 19:53 | NUR ---
RECEIVED ENDORSEMENT FROM JOSUÉ MCKINNON, PATIENT WAS STABLE DURING THE CHANGE OF SHIFT. PATIENT ALERT AND QUIET WITH MILD LOUD OUTBURST. PATIENT IS ON ROOM AIR WITH NO NOTED RESPIRATORY DISTRESS. NO NOTED S/S OF PAIN/DISCOMFORT. DRESSING TO COCCYX WAS COVERED AND NO NOTED DRAINAGE. BED SIDE COMMODE WAS AVAILABLE. NEWLY INSERTED PICC LINE TO THE RIGHT UPPER ARM WAS INTACT. IV FLUIDS ARE RUNNING AT 120MLS OF NORMAL SALINE. SIDE RAILS UP X 2 FOR SAFETY AND ADJUSTMENTS. NURSING WILL FREQUENT THIS ROOM FOR ANTICIPATED NEEDS. CALL LIGHT WITHIN REACH. [email or web address]
[2022-02-04 20:00] VITALS: BP 148/83
--- NOTE | 2022-02-04 20:00 | NUR ---
Patient's Plan of Care was discussed and reviewed with MADISON velasco:
--- NOTE | 2022-02-04 21:49 | NUR ---
PATIENT'S PICC LINE IS RUNNING WITHOUT INCIDENT. PATIENT REQUESTED HER EVENING SNACK AND IT WAS GIVEN. PATIENT DENIES ANY PAIN/DISCOMFORT. PATIENT HAD NO NOTED RESPIRATORY DISTRESS. SIDE RAILS UP X 2 FOR COMFORT AND SELF ADJUSTMENT. CALL LIGHT WITHIN REACH. [email or web address]
--- NOTE | 2022-02-04 23:15 | NUR ---
DURING ROUNDS NURSING NOTED PATIENT IN BED ASLEEP. NO NOTED S/S OF PAIN/DISCOMFORT. NOTED PATIENT'S CHEST RISING AND FALLING WITHOUT DISTRESS. SIDE RAILS UP X 2. CALL LIGHT WITHIN REACH FOR ASSISTANCE. NURSING WILL FREQUENT THIS ROOM FOR ANTICIPATED ASSISTANCE. [email or web address]
--- NOTE | 2022-02-05 01:10 | NUR ---
PATIENT REMAINS ASLEEP AT THIS TIME. NURSING WILL CONTINUE TO MONITOR FOR ANY CHANGES. [email or web address]
[2022-02-05] MEDS: HYDROmorphone 1 MG/ML AMP IVP PRN ×3 (02:02→16:58)
[2022-02-05] MEDS: VANCOMYCIN 1,000 MG in NACL 0.9% 250 ML IV SCH (02:12)
--- NOTE | 2022-02-05 03:27 | NUR ---
CHANGED PATIENT'S WOUND BECAUSE THE DRESSING CAME OFF. PATIENT TOLERATED IT MODERATELY. PAIN MANAGEMENT WAS GIVEN PRIOR TO WOUND CARE. SIDE RAILS UP X 2. CALL LIGHT WITHIN REACH. [email or web address]
[2022-02-05 04:00] VITALS: BP 143/79
[2022-02-05] MEDS: NACL 0.9% 1,000 ML IV SCH ×2 (06:31→14:40)
[2022-02-05] MEDS: INSULIN LISPRO SLIDING SCALE 100 UNITS/ML VIAL SUBQ PRN ×3 (06:33→17:06)
[2022-02-05] MEDS: BLOOD GLUCOSE MONITORING 1 DEV DEV FS SCH ×3 (06:36→17:07)
--- NOTE | 2022-02-05 07:02 | NUR ---
patient was endorsed to Jayshree MCKINNON, patient was in the middle of a bowel movement. Patient was encouraged not to use her fingers of her hands. Patient understood and was assisted to the bedside commode. [email or web address]
[2022-02-05 07:36] LABS: BASOPHILS # (AUTO) 0.1 K/uL (0.00-0.22); BASOPHILS % (AUTO) 1.1 % (0.0-2.0); EOSINOPHILS # (AUTO) 0.2 K/uL (0-0.4); EOSINOPHILS % (AUTO) 1.7 % (0.0-4.0); HEMATOCRIT 28.3 % (36-48); HEMOGLOBIN 9.4 g/dL (12.0-16.0); LYMPHOCYTES # (AUTO) 3.1 K/uL (2.5-16.5); MEAN CORPUSCULAR HEMOGLOBIN 27 pg (27-31); MEAN CORPUSCULAR HGB CONC 33 g/dL (33-37); MEAN CORPUSCULAR VOLUME 82.7 fL (80-94); MONOCYTES # (AUTO) 0.6 K/uL (0.8-1.0); MONOCYTES % (AUTO) 5.7 % (1.7-9.3); NEUTROPHILS # (AUTO) 6.6 K/uL (1.8-7.7); NEUTROPHILS % (AUTO) 62.5 % (42.2-75.2); PLATELET COUNT (AUTO) 367 K/uL (140-450); RED BLOOD CELL COUNT(AUTO) 3.43 MIL/uL (4.20-5.40); WHITE BLOOD COUNT (AUTO) 10.5 K/uL (4.8-10.8)
--- NOTE | 2022-02-05 07:36 | NUR ---
GOT REPORT FROM THE NIGHT NURSE, PT SLEEPING, IF FLUID INFUSING ORDERED, NO SOB.[id number]
[2022-02-05 07:56] LABS: ANION GAP 10.4 (8-16); CARBON DIOXIDE 29.6 mmol/L (21-32); CREATININE 1.3 mg/dL (0.6-1.3)
[2022-02-05] MEDS: PIPERACILLIN/TAZOBACTAM 3.375 GM in DEXTROSE 5% 50 ML IV SCH (08:00)
[2022-02-05] MEDS: GAUZE TP SCH (11:24)
[2022-02-05 12:00] VITALS: BP 143/79
[2022-02-05] MEDS ORDERED: LEVO-481 PO (13:06)
[2022-02-05] MEDS ORDERED: DOCU-299 PO (13:06)
[2022-02-05] MEDS ORDERED: INSU100S22 SUBQ (13:06)
[2022-02-05] MEDS ORDERED: BLOO1EAC40 MC (13:06)
[2022-02-05] MEDS ORDERED: HUMSLIDE SUBQ (13:06)
[2022-02-05] MEDS ORDERED: LANC1COM6 MC (13:06)
[2022-02-05] MEDS ORDERED: GLUC-805 FS (13:06)
[2022-02-05] MEDS ORDERED: levoFLOXacin 500 MG TAB PO SCH (14:00)
--- NOTE | 2022-02-05 20:11 | NUR ---
PT DISCHARGED AT 1944 PT STABLE. LEFT MST UNIT VIA W/C. ACCOMPANIED BY RN. WHEELED OUTSIDE FRONT LOBBY AWAITING UBER.
== END 2022-02-05 19:40 | disposition home health service (06) | DRG 720 ==
LOC: MED 11:52 → MTU 19:26
PROVIDERS: ADMIT Family Medicine; ATTEND Family Medicine
PROC: 0JB90ZZ Excision of Buttock Subcutaneous Tissue and Fascia, Open Approach (ICD-10-PCS; 2022-02-01)
PROC: 05HB33Z Insertion of Infusion Device into Right Basilic Vein, Percutaneous Approach (ICD-10-PCS; principal; 2022-02-03)
PROC: B54MZZA Ultrasonography of Right Upper Extremity Veins, Guidance (ICD-10-PCS; 2022-02-03)
DX: A41.9 Sepsis, unspecified organism (principal); N17.0 Acute kidney failure with tubular necrosis; E43 Unspecified severe protein-calorie malnutrition; L03.315 Cellulitis of perineum; E87.1 Hypo-osmolality and hyponatremia; E83.51 Hypocalcemia; I42.9 Cardiomyopathy, unspecified; L02.31 Cutaneous abscess of buttock; Z20.822 Contact with and (suspected) exposure to COVID-19; J45.909 Unspecified asthma, uncomplicated; I10 Essential (primary) hypertension; E11.65 Type 2 diabetes mellitus with hyperglycemia; L03.317 Cellulitis of buttock; D64.9 Anemia, unspecified; E87.8 Other disorders of electrolyte and fluid balance, not elsewhere classified; I25.10 Atherosclerotic heart disease of native coronary artery without angina pectoris; I51.7 Cardiomegaly; F17.200 Nicotine dependence, unspecified, uncomplicated; Z68.28 Body mass index [BMI] 28.0-28.9, adult; Z86.73 Personal history of transient ischemic attack (TIA), and cerebral infarction without residual deficits
CPT/HCPCS: 36415; 71045; 80048; 80053; 80202; 80305; 81001; 82550; 82948; 83036; 83605; 83735; 83880; 84484; 85025; 87040; 87070; 87075; 87081; 87086; 87186; 87205; 93005; 96365; 96367; 96372; 96375; 99291; J1170; J1815; J1885; J2001; J2060; J2175; J2270; J2543; J2704; J3010; J3370; J3490; J7030; J7060; Q0092; Q9967

== ENCOUNTER 2023-01-16 12:46 | Inpatient (IN) | payer MEDICAID ==
[~2023-01-16] VITALS: Ht 152.4 cm; Wt 90.7 kg
[~2023-01-16 12:46] MED LIST changes: -ACET-8386 PO; +ACET-8905 PO; +BLOO1EAC40 MC; +CETI10SG1 PO; -CLIN300C2 PO; +DOCU-299 PO; +GLUC-805 FS; +HUMSLIDE SUBQ; -HYDR-5080 PO; -IBUP-2218 PO; +INSU100S22 SUBQ; +LANC1COM6 MC; +LEVO-481 PO; +LOTC TP; -METF-346 PO; -METF-713 PO; +NAPR-1704 PO; -SULF-59 PO
[2023-01-16 12:50] VITALS: BP 100/68; PULSE 106; RESP 16; TEMP 98.4; O2SAT 95
[2023-01-16] MEDS ORDERED: KETOROLAC 60 MG/2 ML VIAL IM ONE (14:15)
[2023-01-16] MEDS ORDERED: NACL 0.9% 1,000 ML IV ONE ×2 (14:20→17:00)
[2023-01-16] MEDS ORDERED: KETOROLAC 30 MG/ML VIAL IVP ONE (14:20)
[2023-01-16 14:44] LABS: BASOPHILS # (AUTO) 0.2 K/uL (0.00-0.22); BASOPHILS % (AUTO) 1.1 % (0.0-2.0); EOSINOPHILS # (AUTO) 0.1 K/uL (0-0.4); EOSINOPHILS % (AUTO) 0.4 % (0.0-4.0); HEMATOCRIT 37.2 % (36-48); HEMOGLOBIN 12.2 g/dL (12.0-16.0); LYMPHOCYTES # (AUTO) 2.9 K/uL (2.5-16.5); LYMPHOCYTES % (AUTO) 21.6 % (20.5-51.1); MEAN CORPUSCULAR HEMOGLOBIN 26 pg (27-31); MEAN CORPUSCULAR HGB CONC 33 g/dL (33-37); MEAN CORPUSCULAR VOLUME 80.2 fL (80-94); MONOCYTES # (AUTO) 0.7 K/uL (0.8-1.0); NEUTROPHILS # (AUTO) 9.7 K/uL (1.8-7.7); NEUTROPHILS % (AUTO) 71.9 % (42.2-75.2); PLATELET COUNT (AUTO) 350 K/uL (140-450); RED BLOOD CELL COUNT(AUTO) 4.63 MIL/uL (4.20-5.40); RED CELL DISTRIBUTION WIDTH 15.8 % (11.6-13.7); WHITE BLOOD COUNT (AUTO) 13.5 K/uL (4.8-10.8)
[2023-01-16 15:07] LABS: ALBUMIN 2.6 g/dL (3.4-5.0); ANION GAP 13.8 (8-16); CARBON DIOXIDE 27.5 mmol/L (21-32); CREATININE 1.8 mg/dL (0.6-1.3); POTASSIUM 4.3 mmol/L (3.5-5.1); TOTAL BILIRUBIN 0.3 mg/dL (0.0-1.0); TOTAL PROTEIN, SERUM 7.4 g/dL (6.4-8.2)
[2023-01-16 16:04] LABS: APPEARANCE,URINE CLEAR (CLEAR); BILIRUBIN,URINE 1+ (NEGATIVE); BLOOD, URINE 2+ (NEGATIVE); COLOR,URINE YELLOW (YELLOW); LEUKOCYTE ESTERASE ,URINE NEGATIVE (NEGATIVE); NITRITE, URINE POSITIVE (NEGATIVE); PROTEIN,URINE 2+ (NEGATIVE); UGLUCOSE 2+ (NEGATIVE); UROBILINOGEN,URINE 0.2 EU/dL (0.2 - 1)
[2023-01-16 16:29] LABS: BACTERIA,URINE 2+ /HPF (None Seen); RBC,URINE 0-5 /HPF (0-5); SQUAMOUS EPITHELIAL CELL,UR 0-3 (FEW) /LPF (0-3 (FEW)); WBC,URINE NONE SEEN /HPF (0-5)
[2023-01-16] MEDS ORDERED: cefTRIAXone 1,000 MG VIAL ONE (16:58)
[2023-01-16] MEDS ORDERED: MORPHINE SULFATE 4 MG/ML SYR IVP ONE (17:35)
[2023-01-16 21:23] VITALS: PULSE 100; RESP 18; O2SAT 98
[2023-01-16] MEDS ORDERED: DEXTROSE 50% 50 ML SYR IVP PRN (22:15)
[2023-01-16] MEDS ORDERED: ACETAMINOPHEN 325 MG TAB PO PRN (22:15)
[2023-01-16] MEDS ORDERED: ONDANSETRON 4 MG/2 ML VIAL IVP PRN (22:15)
[2023-01-16] MEDS ORDERED: LORazepam 2 MG/ML VIAL IVP PRN (22:15)
[2023-01-16] MEDS: HYDROcodone/APAP 5/325 MG 1 TAB TAB PO PRN (23:41)
[2023-01-17] VITALS: BP 153/86; PULSE 100; RESP 17; TEMP 97.4; O2SAT 98
[2023-01-17] MEDS ORDERED: LIDOCAINE/PRILOCAINE 2.5% 5 GM TUBE TP SCH (01:30)
[2023-01-17] MEDS ORDERED: IBUPROFEN 600 MG TAB PO PRN (01:30)
[2023-01-17] MEDS ORDERED: DOCUSATE SODIUM 100 MG GELCAP PO PRN (01:30)
[2023-01-17 05:08] LABS: BASOPHILS # (AUTO) 0.1 K/uL (0.00-0.22); EOSINOPHILS # (AUTO) 0.2 K/uL (0-0.4); EOSINOPHILS % (AUTO) 1.6 % (0.0-4.0); HEMOGLOBIN 10.5 g/dL (12.0-16.0); LYMPHOCYTES # (AUTO) 4.4 K/uL (2.5-16.5); LYMPHOCYTES % (AUTO) 31.9 % (20.5-51.1); MEAN CORPUSCULAR HEMOGLOBIN 26 pg (27-31); MEAN CORPUSCULAR HGB CONC 33 g/dL (33-37); MEAN CORPUSCULAR VOLUME 80.7 fL (80-94); MONOCYTES # (AUTO) 0.7 K/uL (0.8-1.0); MONOCYTES % (AUTO) 4.9 % (1.7-9.3); NEUTROPHILS # (AUTO) 8.3 K/uL (1.8-7.7); NEUTROPHILS % (AUTO) 60.6 % (42.2-75.2); PLATELET COUNT (AUTO) 251 K/uL (140-450); RED BLOOD CELL COUNT(AUTO) 3.97 MIL/uL (4.20-5.40); RED CELL DISTRIBUTION WIDTH 15.4 % (11.6-13.7); WHITE BLOOD COUNT (AUTO) 13.8 K/uL (4.8-10.8)
[2023-01-17 05:27] LABS: ALBUMIN 2.1 g/dL (3.4-5.0); ANION GAP 11.6 (8-16); CALCIUM 8.1 mg/dL (8.5-10.1); CREATININE 1.4 mg/dL (0.6-1.3); PHOSPHORUS 4.3 mg/dL (2.5-4.9); POTASSIUM 4.6 mmol/L (3.5-5.1); TOTAL BILIRUBIN 0.2 mg/dL (0.0-1.0); TOTAL PROTEIN, SERUM 6.3 g/dL (6.4-8.2)
[2023-01-17] MEDS: BLOOD GLUCOSE MONITORING 1 DEV DEV FS SCH ×4 (06:40→20:40)
[2023-01-17] MEDS: INSULIN LISPRO SLIDING SCALE 100 UNITS/ML VIAL SUBQ PRN ×4 (06:48→20:40)
[2023-01-17 08:00] VITALS: BP 156/93; PULSE 68; PULSE 92; PULSE 99; RESP 19; RESP 20; TEMP 98; O2SAT 98; O2SAT 99
[2023-01-17] MEDS ORDERED: LORATADINE 10 MG TAB PO PRN (09:00)
[2023-01-17] MEDS: CLOTRIMAZOLE 1% 30 GM CRM TUBE TP SCH ×3 (11:11→16:51)
[2023-01-17 11:14] LABS: ANION GAP 9.4 (8-16); CALCIUM 8.4 mg/dL (8.5-10.1); CARBON DIOXIDE 28.8 mmol/L (21-32); CREATININE 1.2 mg/dL (0.6-1.3); POTASSIUM 4.2 mmol/L (3.5-5.1)
[2023-01-17 11:19] LABS: PHOSPHORUS 3.5 mg/dL (2.5-4.9)
[2023-01-17 14:43] VITALS: O2SAT 98
[2023-01-17 16:00] VITALS: BP 134/85; PULSE 99; RESP 18; TEMP 97.8; O2SAT 98
[2023-01-17] MEDS ORDERED: hydrOXYzine PAMOATE 25 MG CAP PO PRN (17:15)
[2023-01-17] MEDS: HYDROcodone/APAP 5/325 MG 1 TAB TAB PO PRN (17:31)
[2023-01-17 20:00] VITALS: PULSE 75; PULSE 77; PULSE 95; RESP 18; O2SAT 98
[2023-01-17] MEDS: INSULIN LANTUS 100 UNITS/ML 10 ML VIAL SUBQ SCH (20:39)
[2023-01-18 05:55] LABS: BASOPHILS % (AUTO) 0.5 % (0.0-2.0); EOSINOPHILS # (AUTO) 0.1 K/uL (0-0.4); EOSINOPHILS % (AUTO) 1.3 % (0.0-4.0); HEMATOCRIT 33.9 % (36-48); HEMOGLOBIN 11.2 g/dL (12.0-16.0); LYMPHOCYTES # (AUTO) 3.2 K/uL (2.5-16.5); LYMPHOCYTES % (AUTO) 30.1 % (20.5-51.1); MEAN CORPUSCULAR HEMOGLOBIN 26 pg (27-31); MEAN CORPUSCULAR HGB CONC 33 g/dL (33-37); MEAN CORPUSCULAR VOLUME 79.9 fL (80-94); MONOCYTES # (AUTO) 0.7 K/uL (0.8-1.0); MONOCYTES % (AUTO) 6.4 % (1.7-9.3); NEUTROPHILS # (AUTO) 6.5 K/uL (1.8-7.7); NEUTROPHILS % (AUTO) 61.7 % (42.2-75.2); PLATELET COUNT (AUTO) 313 K/uL (140-450); RED BLOOD CELL COUNT(AUTO) 4.24 MIL/uL (4.20-5.40); RED CELL DISTRIBUTION WIDTH 15.6 % (11.6-13.7); WHITE BLOOD COUNT (AUTO) 10.5 K/uL (4.8-10.8)
[2023-01-18] MEDS: BLOOD GLUCOSE MONITORING 1 DEV DEV FS SCH ×4 (06:30→21:09)
[2023-01-18] MEDS: INSULIN LISPRO SLIDING SCALE 100 UNITS/ML VIAL SUBQ PRN ×2 (06:33→21:10)
[2023-01-18 06:51] LABS: ANION GAP 12.3 (8-16); CALCIUM 8.5 mg/dL (8.5-10.1); CARBON DIOXIDE 25.1 mmol/L (21-32); CREATININE 1.1 mg/dL (0.6-1.3); POTASSIUM 4.4 mmol/L (3.5-5.1)
[2023-01-18 08:00] VITALS: PULSE 75; RESP 18; O2SAT 99
[2023-01-18] MEDS: CLOTRIMAZOLE 1% 30 GM CRM TUBE TP SCH ×3 (09:00→17:55)
[2023-01-18] MEDS: SERTRALINE 50 MG TAB PO SCH (09:22)
[2023-01-18 16:00] VITALS: BP 122/71; PULSE 83; RESP 20; TEMP 98; O2SAT 95
[2023-01-18 20:00] VITALS: PULSE 85; RESP 18; O2SAT 94
[2023-01-18] MEDS: INSULIN LANTUS 100 UNITS/ML 10 ML VIAL SUBQ SCH (21:13)
[2023-01-18] MEDS: HYDROcodone/APAP 5/325 MG 1 TAB TAB PO PRN (22:59)
[2023-01-19] VITALS: BP 110/70; PULSE 85; RESP 18; TEMP 97.7; O2SAT 94
[2023-01-19] MEDS: INSULIN LISPRO SLIDING SCALE 100 UNITS/ML VIAL SUBQ PRN (06:35)
[2023-01-19] MEDS: BLOOD GLUCOSE MONITORING 1 DEV DEV FS SCH ×2 (06:36→11:30)
[2023-01-19 08:00] VITALS: BP 137/77; PULSE 95; RESP 18; TEMP 97.5; O2SAT 100
[2023-01-19] MEDS: CLOTRIMAZOLE 1% 30 GM CRM TUBE TP SCH ×2 (09:00→13:00)
[2023-01-19] MEDS: SERTRALINE 50 MG TAB PO SCH (09:12)
[2023-01-19 09:27] LABS: BASOPHILS # (AUTO) 0.1 K/uL (0.00-0.22); BASOPHILS % (AUTO) 0.9 % (0.0-2.0); EOSINOPHILS # (AUTO) 0.1 K/uL (0-0.4); EOSINOPHILS % (AUTO) 0.7 % (0.0-4.0); HEMATOCRIT 33.3 % (36-48); HEMOGLOBIN 10.7 g/dL (12.0-16.0); LYMPHOCYTES # (AUTO) 2.6 K/uL (2.5-16.5); LYMPHOCYTES % (AUTO) 20.7 % (20.5-51.1); MEAN CORPUSCULAR HEMOGLOBIN 26 pg (27-31); MEAN CORPUSCULAR HGB CONC 32 g/dL (33-37); MEAN CORPUSCULAR VOLUME 79.5 fL (80-94); MONOCYTES # (AUTO) 0.9 K/uL (0.8-1.0); MONOCYTES % (AUTO) 6.9 % (1.7-9.3); NEUTROPHILS % (AUTO) 70.8 % (42.2-75.2); PLATELET COUNT (AUTO) 309 K/uL (140-450); RED BLOOD CELL COUNT(AUTO) 4.19 MIL/uL (4.20-5.40); RED CELL DISTRIBUTION WIDTH 15.2 % (11.6-13.7); WHITE BLOOD COUNT (AUTO) 12.7 K/uL (4.8-10.8)
[2023-01-19 09:37] LABS: CALCIUM 8.2 mg/dL (8.5-10.1); CARBON DIOXIDE 30.2 mmol/L (21-32); CREATININE 0.9 mg/dL (0.6-1.3); POTASSIUM 4.2 mmol/L (3.5-5.1)
[2023-01-19 09:39] LABS: MAGNESIUM 1.7 mg/dL (1.8-2.4); PHOSPHORUS 3.5 mg/dL (2.5-4.9)
[2023-01-19] MEDS ORDERED: LEVO-481 PO (09:51)
[2023-01-19] MEDS ORDERED: MAG SULF 2000 MG/WATER PREMIX 50 ML IV SCH (10:01)
[2023-01-19] MEDS: HYDROcodone/APAP 5/325 MG 1 TAB TAB PO PRN (10:37)
[2023-01-19 11:32] VITALS: BP 110/70; PULSE 85; RESP 18; TEMP 97.7
== END 2023-01-19 14:45 | DRG 720 ==
LOC: MED 12:46 → MMU 17:49 → MTU 18:32
PROVIDERS: ADMIT Preventive Medicine Preventive Medicine/Occupational Environmental Medicine; ATTEND Preventive Medicine Preventive Medicine/Occupational Environmental Medicine
DX: A41.9 Sepsis, unspecified organism (principal); N17.0 Acute kidney failure with tubular necrosis; E43 Unspecified severe protein-calorie malnutrition; E83.51 Hypocalcemia; E87.1 Hypo-osmolality and hyponatremia; N39.0 Urinary tract infection, site not specified; E11.65 Type 2 diabetes mellitus with hyperglycemia; B96.20 Unspecified Escherichia coli [E. coli] as the cause of diseases classified elsewhere; E88.09 Other disorders of plasma-protein metabolism, not elsewhere classified; R79.89 Other specified abnormal findings of blood chemistry; D64.9 Anemia, unspecified; I69.854 Hemiplegia and hemiparesis following other cerebrovascular disease affecting left non-dominant side; D72.829 Elevated white blood cell count, unspecified; G89.29 Other chronic pain; F17.210 Nicotine dependence, cigarettes, uncomplicated; E78.00 Pure hypercholesterolemia, unspecified; F32.A Depression, unspecified; I10 Essential (primary) hypertension; E83.42 Hypomagnesemia; Z98.891 History of uterine scar from previous surgery; I69.354 Hemiplegia and hemiparesis following cerebral infarction affecting left non-dominant side; Z51.89 Encounter for other specified aftercare
CPT/HCPCS: 36415; 71045; 80048; 80053; 81001; 82948; 83735; 83880; 84100; 84484; 85025; 85651; 86140; 87040; 87081; 87086; 93005; 96361; 96365; 96375; 97112; 97530; 99285; J0696; J1815; J1885; J2060; J2270; J3475; J7060

== ENCOUNTER 2023-01-22 01:01 | Emergency (ER) | payer MEDICAID ==
[~2023-01-22] VITALS: Ht 167.6 cm; Wt 81.6 kg
[~2023-01-22 01:01] MED LIST changes: -CEPH-588 PO
[2023-01-22 01:04] VITALS: BP 118/72; PULSE 97; RESP 16; TEMP 97.6; O2SAT 98
[2023-01-22 01:30] VITALS: O2SAT 95
[2023-01-22] MEDS ORDERED: HYDROcodone/APAP 5/325 MG 1 TAB TAB PO ONE ×2 (01:35→08:00)
[2023-01-22 01:53] VITALS: BP 145/90; PULSE 87; RESP 12
[2023-01-22 03:36] VITALS: O2SAT 98
[2023-01-22] MEDS ORDERED: KETOROLAC 30 MG/ML VIAL ONE (05:07)
[2023-01-22 06:37] VITALS: O2SAT 98
[2023-01-22] MEDS ORDERED: KETOROLAC 30 MG/ML VIAL IM ONE (07:15)
[2023-01-22 08:37] VITALS: O2SAT 98
[2023-01-22] MEDS ORDERED: SERTRALINE 50 MG TAB PO SCH (09:00)
== END 2023-01-22 12:23 ==
LOC: MED 01:01
DX: R45.851 Suicidal ideations (principal); E11.9 Type 2 diabetes mellitus without complications; I10 Essential (primary) hypertension; Z86.73 Personal history of transient ischemic attack (TIA), and cerebral infarction without residual deficits; Z79.4 Long term (current) use of insulin; Z79.899 Other long term (current) drug therapy
CPT/HCPCS: 96372; 99285; J1885